=== PATIENT | male | born 1960 | race Caucasian/White ===

== ENCOUNTER 2017-10-21 11:32 | Inpatient (IN) ==
[2017-10-21 16:49] LABS: ABG Base Excess -4 mEq/L (-2 to 3); ABG HCO3 22 mEq/L (21-27); ABG Oxygen Saturation 100 % (95-98); ABG PCO2 43 mmHg (35-45); ABG PH 7.32 pH Units (7.32-7.45); ABG PO2 313 mmHg (85-104); ABG TCO2 23 mEq/L (20-26); Blood Gas Modality ASSIST CONTROL; Blood Gas PEEP 5 cm H2O; Blood Gas Respiration Rate 12; Blood Gas VT 500 cc
[2017-10-21] MEDS ORDERED: Lacri-Lube 3.5 GM TUBE BOTH EYES PRN (17:03)
[2017-10-21] MEDS ORDERED: Naloxone 0.4 MG/ML INJ IVP PRN (17:03)
--- NOTE | 2017-10-21 17:09 | Pulmonology History & Physical ---
<Joseph Kraft W - Last Filed: 10/21/17 17:24> Date of Encounter: 10/21/17 History of Present Illness HPI: Mr. Hawkins is a 56 year old male Medications and Allergies OxyCODONE/APAP 10/325 [Percocet 10/325 MG] 1 each PO Q6HR #120 tablet 02/17/17 [ Rx] Citalopram [CeleXA] 20 mg PO DAILY 10/21/17 [History] Multivit-Min/FA/Lycopen/Lutein [Men 50 Plus Multivitamin Tab] 1 each PO DAILY [History] 3 Allergy/AdvReac Type Severity Reaction Status Date / Time No Known Allergies Allergy Verified 12/28/16 16:03 All Systems: The remainder of the systems were reviewed and are negative Physical Examination Vital Signs: Vital Signs, Last 4 Hours Temp Pulse Resp BP Pulse Ox 10/21/17 17:00 98.6 F 95 32 142/97 100 10/21/17 16:59 95 10/21/17 16:58 28 99 10/21/17 16:55 28 100 Results - Laboratory Findings ABG ABG pH 7.32 pH Units (7.32-7.45) 10/21/17 16:44 ABG pCO2 43 mmHg (35-45) 10/21/17 16:44 ABG pO2 313 mmHg (85-104) H 10/21/17 16:44 ABG O2 Saturation 100 % (95-98) H 10/21/17 16:44 Abnormal lab findings: Abnormal lab results ABG pO2 313 mmHg (85-104) H 10/21/17 16:44 ABG O2 Saturation 100 % (95-98) H 10/21/17 16:44 ABG Base Excess -4 mEq/L (-2 to 3) L 10/21/17 16:44 POC Glucose 273 mg/dL (70-99) H 10/21/17 16:42 - Attending Attestation I examined this patient and my medical decision-making was reviewed with the Resident Physician. I agree with the documented findings, disposition and treatment plan as described except to the extent set forth below. We independently had [id number] contact with the patient I spent 35min of Critical Care time with this patient. It involved decision making of high complexity to assess, manipulate, and support vital organ system failure and/or to prevent further life threatening deterioration of the patient' s condition. The time involved in the performance of separately reportable procedures was not counted toward critical care time. Patient seen and examined at bedside Labs, radiology, chart personally reviewed. GLOBAL CLIMATE CHANGE ANALYST: The patient is showing evidence of anoxic brain injury with myoclonic jerking thus far has not been responsive to benzodiazepine. He has a history of metastatic lung cancer to the brain but this is been treated in the past with no evidence of recurrence at this point. CT head was performed at the outside hospital without acute abnormality and a repeat CT now to see for any evidence of worsening anoxic injury/cerebral edema. Overall neurological prognosis very poor. Continue targeted hypothermia protocol. Patient has no purposeful movement to this point his pupils remained fixed without gag reflex although he is able to trigger the vent. Will likely need neurologic consult tomorrow based upon clinical course Pulm: Acute respiratory failure on stable now was acceptable gas exchange. CTA to rule out pulmonary embolus as cause of cardiac arrest history of lung resection for primary lung malignancy in the distant past. Cards: Status post cardiac arrest was requiring vasopressor however that has been weaned off and blood pressure has stabilized. Echocardiogram pending troponin slightly elevated likely related to prolonged CPR. We will continue to trend this however along with serum lactate FEN-GI: Nothing by mouth for now GI prophylaxis given Renal: And output monitored along with serum creatinine and electrolytes ID: Concern for possible pneumonia being treated broadly for this cultures pending planned to de-escalate respiratory infectious panel pending Heme/Onc: DVT prophylaxis given. Endo: Glucose Monitored Integ/MSK: Skin Care per routine ICU Nursing Protocol to prevent ulcers. Lines: All lines examined without evidence of infection : Dispo: Remain in ICU critical illness CODE: Full code. I had a conversation with the patient's family members including his next of kin () and his son. I explained that overall prognosis is very grim from a neurological standpoint and I suspect he will end up with persistent vegetative state. We discussed the possibility of additional cardiac arrest and the very limited utility of repeat CPR in this patient's case with providing a meaningful recovery. At this point the family is in agreement they wanted to pursue aggressive measures explaining that there loaded 1 as a "fighter" we will continue aggressive measures at this time and continue daily updates with the family regarding clinical course.The patient is unable or incompetent to participate in giving a history and/or making treatment decisions. The discussion was necessary for determining treatment decision. This discussion took place in the ICU. The total meeting time was 15 minutes <Alison Pham - Last Filed: 10/21/17 21:06> Date of Encounter: 10/21/17 Time of Encounter: 17:09 Assessment and Plan (1) Acute respiratory failure requiring reintubation Current visit: Yes Status: Acute Acute respiratory failure requiring intubation s/p cardiac arrest. Unsure of etiology of cardiac arrest. WBC 12.3, lactic acid greater than 10, currently no source of infection as urine analysis was negative, chest x-ray showed no opacities. EKG showed low voltage but normal sinus. Plan: - Continue ventilatory support - DuoNeb's every 4 hours, albuterol every 2 when necessary - Sedated on Precedex, fentanyl, Versed - Empirically started on vancomycin and Zosyn for possible underlying infection - Diet: Nothing by mouth - Troponin every 6 hours - Lactic acid every 6 hours (2) Elevated lactic acid level Current visit: Yes Status: Acute Most likely secondary to hypoxia but could be due to infection. Patient was fluid resuscitated in the ED 3 L. Less likely though secondary to significant leukocytosis. We will continue to trend. (3) Cardiac arrest Current visit: No Status: Acute CPR before EMS arrived at the scene was done for at least 10 minutes but possibly up to 45 minutes. Patiently currently on hypothermic protocol. Patient is intubated. See plan above. (4) Elevated troponin Current visit: No Status: Acute Troponin was elevated 0.01. Repeat pending. Continue to trend. High risk for hemorrhage. (5) Non-small cell lung cancer Current visit: No Status: Acute Left lower lobe pneumonectomy, metastasis to his brain with removal. Last oncology note recorded on 03/03. Qualifiers: Laterality: left Qualified Code(s): C34.92 - Malignant neoplasm of unspecified part of left bronchus or lung (6) DVT prophylaxis Current visit: Yes Status: Acute Heparin SQ History of Present Illness Chief complaint: Cardiac Arrest HPI: Mr. Hawkins is a 56 year old male with past medical history of left lower lobe pneumonectomy secondary to lung cancer and metastatic cancer to the brain which was removed presented to [facility] ED and cardiac arrest. The past 3 days patient has not felt like himself and has had an altered mental status but refused to come into the hospital. This morning, patient was with his family and was last seen a couple minutes before he was found face down and not breathing. Patient' s son's who is a nurse p.m. CPR CPR was stated to be 45 minutes down time before EMS arrived but other family members stated that it might be 20 minutes or 10 minutes. Patient was given 3 rounds of appendectomy, bicarbonate once, Narcan, and intubated. Patient's family state that he does use opioids and abuses them at home but Narcan had little effect. Patient arrived at [facility] ED, and was found have a lactic acid greater than 10, troponin 0.10, BNP 205. CT was negative for acute intercranial hemorrhage. EKG showed sinus rhythm and a QTC 456. 3 L of saline was given. He required levophed as patient became hypotensive but was weaned off before EMS transferred to [place] [facility]. Patient was also found to be hypothermic therefore hypothermic protocol was not started. EMS stated that in around to [place] [facility] vitals were stable. On arrival to the ICU, patient's temperature was within normal limits and hypothermic protocol was initiated. Patient had a repeat head CT which showed. CTA of the chest showed no evidence of pulmonary embolism but did show multifocal right pulmonary infiltrates most prevalent in the right lower lobe, consistent with left pneumonectomy. Labs are pending. Past Med Surg Social Fam HX - Past Medical History Medical history: cancer (non-small cell lung cancer with mets to the brain that was removed), COPD, other Psychiatric history: anxiety, depression - Past Surgical History Surgical History: other (Left pneumonectomy) - Social History Smoking Status: Current every day smoker Smokeless Tobacco Status: No Alcohol use: none Drug use: none ROS unobtainable: due to endotracheal tube All Systems: The remainder of the systems were reviewed and are negative Physical Examination Vital Signs: Vital Signs, Last 4 Hours Pulse Resp Pulse Ox 10/21/17 16:59 95 10/21/17 16:58 28 99 10/21/17 16:55 28 100 Constitutional: intubated, resting with tremor Head: Normocephalic, atraumatic Heart: Normal, regular rate and rhythm, no murmurs Lungs: lung sounds heard bilaterally, decrease sounds on left lower lobe, clear to auscultation, patient mechanically intubated Abdomen: Soft, mild distended, Extremities: No edema, No clubbing Skin: Skin cool and dry, no lesions, no rashes, no jaundice Neurologic: not responding to commands, pupils 3mm delayed reaction lines: PIV, Results - Laboratory Findings ABG ABG pH 7.32 pH Units (7.32-7.45) 04 16:44 ABG pCO2 43 mmHg (35-45) 04 16:44 ABG pO2 313 mmHg (85-104) H 10/21/17 16:44 ABG O2 Saturation 100 % (95-98) H 04 16:44 Abnormal lab findings: Abnormal lab results ABG pO2 313 mmHg (85-104) H 10/21/17 16:44 ABG O2 Saturation 100 % (95-98) H 10/21/17 16:44 ABG Base Excess -4 mEq/L (-2 to 3) L 10/21/17 16:44 POC Glucose 273 mg/dL (70-99) H 10/21/17 16:42
[2017-10-21] MEDS: *HR* Heparin 5,000 UNIT/ML VIAL SQ SCH ×2 (17:47→22:07)
[2017-10-21] MEDS: Famotidine 20 MG/2 ML VIAL IVP SCH (17:47)
[2017-10-21] MEDS ORDERED: Potassium Phosphate 44 MEQ in 0.9 % Sodium Chloride 250 ML IVPB PRN (18:14)
[2017-10-21] MEDS: Dexmedetomidine HCl 400 MCG/100 ML MLS IVC SCH (18:39)
[2017-10-21 21:02] LABS: Hematocrit 46.7 % (37.5-50.1); Hemoglobin 15.7 g/dL (12.9-16.9); Mean Corpuscular HGB Conc 33.6 g/dL (31.6-35.5); Mean Corpuscular Hemoglobin 32.4 pg (28.0-33.3); Mean Corpuscular Volume 96.3 fL (83.0-100.0); Mean Platelet Volume 9.1 fL (9.4-12.4); Platelet Count 184 K/mcL (140-400); Red Blood Count 4.85 M/mcL (4.19-5.50); Red Cell Distribution Width 13.1 % (11.5-14.5)
[2017-10-21 21:09] LABS: Prothrombin Time 21.3 Seconds (9.4-12.1)
[2017-10-21] MEDS: Chlorhexidine Rinse 15 ML MOUTHWASH MM SCH (21:15)
[2017-10-21] MEDS: Lacri-Lube 3.5 GM TUBE BOTH EYES SCH (21:15)
[2017-10-21 21:22] LABS: BUN/Creatinine Ratio 23 (6-26); Blood Urea Nitrogen 31 mg/dL (6-20); Calcium 7.9 mg/dL (8.6-10.3); Carbon Dioxide 23 mEq/L (23-29); Chloride 103 mEq/L (98-107); Glucose 182 mg/dL (70-105); Magnesium 1.9 mg/dL (1.6-2.6); Osmolality,Calculated 301 (280-300); Phosphorous 2.7 mg/dL (2.7-4.5); Potassium 3.5 mEq/L (3.5-5.1); Sodium 140 mEq/L (136-145); eGFR For African Americans > 60 (> 60); eGFR For Non-African Americans 54 (> 60)
[2017-10-21] MEDS ORDERED: Ringers Solution, Lactated 500 ML IVC ONE (21:35)
[2017-10-21 22:03] LABS: Lymphocytes # 1.9 K/mcL (0.6-4.6); Monocytes # 1.5 K/mcL (0.0-1.3); Neutrophils # 12.6 K/mcL (1.6-8.9)
[2017-10-21] MEDS: Ipratropium/Albuterol Neb 3 ML IH SCH (22:17)
[2017-10-21] MEDS: Ringers Solution, Lactated 1,000 ML IVC SCH (22:24)
--- NOTE | 2017-10-21 22:57 | Procedure Note ---
<Marcel Neely - Last Filed: 10/21/17 23:03> Date of procedure: 10/21/17 Pre-op diagnosis: cardiac arrest Post-op diagnosis: same Procedure: Procedure Note: Central Venous Catheter Insertion Indication: Status post cardiac arrest, hypotension Attending Physician:Dr. Morris Call Center Supervisor: Dr. Neely Indication: This is a 56 year-old male status post cardiac arrest on hypothermic protocol. . Technique: A time out was preformed identifying the correct procedure, the correct location with the nursing staff. The right groin was prepped with 2% chlorhexidine and draped with a full length sterile sheet in the usual fashion. The femoral vein was accessed under ultrasound guidance with an 18 gauge thin wall needle. A triple lumen was inserted via the seldinger technique. Blood was withdrawn from all lumens and flushed with normal saline. The catheter was sutured in place and a sterile dressing was applied over the site prior to removal of drapes. The patient tolerated the procedure well and there were no complications. EBL: 5 mL Complication: None Anesthesia: IV sedation Surgeon: Marcel Neely Was there an ophthalmic assistant present: No Estimated blood loss (cc): 5 Specimen: none Pathology: none sent Condition: stable Disposition: ICU <Raman Morris - Last Filed: 10/22/17 05:31> Procedure: I am with the resident Dr. Neely at bed side during this procedure. He did place Rt Femoral triple lumen catheter with U/S guided. The whole procedure went well. Everything was done in sterile condition.
[2017-10-21] MEDS: Potassium Chloride 10 MEQ in 0.9 % Sodium Chloride 100 ML IVPB PRN (23:10)
[2017-10-22] MEDS: Piperacillin/Tazobactam 3.375 GM in 0.9 % Sodium Chloride Mini Bag 100 ML IVPB SCH ×3 (00:09→15:19)
[2017-10-22] MEDS: Lacri-Lube 3.5 GM TUBE BOTH EYES SCH ×6 (00:10→20:08)
[2017-10-22] MEDS: Potassium Chloride 10 MEQ in 0.9 % Sodium Chloride 100 ML IVPB PRN ×3 (00:10→02:10)
[2017-10-22] MEDS: Ipratropium/Albuterol Neb 3 ML IH SCH ×7 (00:17→23:49)
[2017-10-22 02:23] LABS: Albumin 3.1 g/dL (3.5-5.7); Albumin/Globulin Ratio 1.1 (1.1-2.2); Bilirubin,Direct 0.4 mg/dL (0.0-0.2); Bilirubin,Indirect 0.3 mg/dL (0.0-1.2); Bilirubin,Total 0.7 mg/dL (0.3-1.0); Chol/HDL Ratio 1.7 (0-4.9); Globulin 2.8 g/dL (2.4-3.5); Total Protein 5.9 g/dL (6.4-8.9)
[2017-10-22 02:35] LABS: Hemoglobin 14.7 g/dL (12.9-16.9); Mean Corpuscular HGB Conc 33.4 g/dL (31.6-35.5); Mean Corpuscular Hemoglobin 31.8 pg (28.0-33.3); Mean Corpuscular Volume 95.2 fL (83.0-100.0); Mean Platelet Volume 9.2 fL (9.4-12.4); Platelet Count 146 K/mcL (140-400); Red Blood Count 4.62 M/mcL (4.19-5.50); Red Cell Distribution Width 13.2 % (11.5-14.5)
[2017-10-22 03:00] LABS: BUN/Creatinine Ratio 28 (6-26); Blood Urea Nitrogen 34 mg/dL (6-20); Carbon Dioxide 19 mEq/L (23-29); Chloride 107 mEq/L (98-107); Potassium 4.8 mEq/L (3.5-5.1); Sodium 139 mEq/L (136-145); eGFR For African Americans > 60 (> 60)
[2017-10-22 03:01] LABS: Calcium 7.8 mg/dL (8.6-10.3); Glucose 128 mg/dL (70-105); Magnesium 2.5 mg/dL (1.6-2.6); Osmolality,Calculated 297 (280-300); Phosphorous 6.4 mg/dL (2.7-4.5); Troponin I 0.57 ng/mL (< 0.04); eGFR For Non-African Americans > 60 (> 60)
[2017-10-22 03:08] LABS: Adenovirus Not Detected (Not Detect); Bordetella Pertussis Not Detected (Not Detect); Chlamydophila pneumoniae Not Detected (Not Detect); Coronavirus 229E Not Detected (Not Detect); Coronavirus HKU1 Not Detected (Not Detect); Coronavirus NL63 Not Detected (Not Detect); Coronavirus OC43 Not Detected (Not Detect); Human Metapneumovirus ***DETECTED*** (Not Detect); Human Rhinovirus/Enterovirus Not Detected (Not Detect); Influenza A Subtype 2009 H1 Not Detected (Not Detect); Influenza A Untypeable Not Detected (Not Detect); Influenza B Not Detected (Not Detect); Mycoplasma pneumoniae Not Detected (Not Detect); Parainfluenza Virus 1 Not Detected (Not Detect); Parainfluenza Virus 2 Not Detected (Not Detect); Parainfluenza Virus 3 Not Detected (Not Detect); Parainfluenza Virus 4 Not Detected (Not Detect); Respiratory Syncytial Virus Not Detected (Not Detect)
[2017-10-22 03:32] LABS: Platelet Estimate Normal (Normal)
[2017-10-22 03:38] LABS: Lymphocytes # 0.4 K/mcL (0.6-4.6); Monocytes # 0.8 K/mcL (0.0-1.3); Neutrophils # 18.4 K/mcL (1.6-8.9)
[2017-10-22] MEDS: Ringers Solution, Lactated 1,000 ML IVC SCH ×2 (03:57→14:02)
[2017-10-22 05:18] LABS: ABG Base Excess -8 mEq/L (-2 to 3); ABG HCO3 20 mEq/L (21-27); ABG Oxygen Saturation 91 % (95-98); ABG PCO2 50 mmHg (35-45); ABG PH 7.22 pH Units (7.32-7.45); ABG PO2 74 mmHg (85-104); ABG TCO2 22 mEq/L (20-26); Blood Gas Modality ASSIST CONTROL; Blood Gas PEEP 5 cm H2O; Blood Gas Respiration Rate 12; Blood Gas VT 500 cc
[2017-10-22] MEDS: Famotidine 20 MG/2 ML VIAL IVP SCH ×2 (05:45→17:05)
[2017-10-22] MEDS: *HR* Heparin 5,000 UNIT/ML VIAL SQ SCH ×3 (05:45→22:10)
[2017-10-22] MEDS: Chlorhexidine Rinse 15 ML MOUTHWASH MM SCH ×2 (08:08→20:08)
[2017-10-22 08:15] LABS: VBG Ionized Calcium 1.01 mmol/L (1.15-1.35)
--- NOTE | 2017-10-22 08:23 | Pulmonology Progress Note ---
Addendum entered and electronically signed by Alison Pham DO 10/22/17 10:29 : A/P: additional diagnosis 1. Anoxic brain injury - Prolonged down time with CPR. CT of head showed cerebral and basal ganglia edema. Patient was found to be hypothermic at the ED in [place] so hypothermic protocol not started, upon arrival to [place] patient was found to have a normal temperature. Hypothermic protocol initiated. Will begin rewarming around 8PM tonight. Neurology consulted, appreciate recommendations. 2. addition to elevated troponin - Echo pending. Original Note: <Alison Pham - Last Filed: 10/22/17 10:09> Date of Encounter: 10/22/17 Time of Encounter: 08:00 Assessment and Plan (1) Acute respiratory failure requiring reintubation Current Visit: Yes Status: Acute Acute respiratory failure requiring intubation s/p cardiac arrest found to have human metapneumovir virus probably causing COPD exacerbation. Unsure of etiology of cardiac arrest. WBC 12.3, lactic acid greater than 10, currently no source of infection as urine analysis was negative, chest x-ray showed no opacities. EKG showed low voltage but normal sinus. + Human metapneumovir virus Plan: - Continue ventilatory support - DuoNeb's every 4 hours, albuterol every 2 when necessary - Sedated on Precedex - Empirically started on vancomycin and Zosyn for possible underlying infection - Diet: Nothing by mouth - Troponin every 6 hours, trending down - Lactic acid every 6 hours, trending down - contact precautions for human metapneumovir virus (2) Elevated lactic acid level Current Visit: Yes Status: Acute Most likely secondary to hypoxia vs. infection. Patient was fluid resuscitated in the ED 3 L. No significant leukocytosis. Positive for human metapneumovir Plan: -continue to trend, currently trending down -LR at 100 mL per hour (3) Cardiac arrest Current Visit: No Status: Inactive CPR before EMS arrived at the scene was done for at least 10 minutes but possibly up to 45 minutes. Patiently currently on hypothermic protocol. Patient is intubated. See plan above. (4) Elevated troponin Current Visit: No Status: Inactive Troponin was elevated with a max of 1.02 status post cardiac arrest and CPR. currently trending down. Continue to trend. High risk for hemorrhage if heparin given. (5) Non-small cell lung cancer Current Visit: No Status: Acute Left lower lobe pneumonectomy, metastasis to his brain with removal. Last oncology note recorded on 03/03. Qualifiers: Laterality: left Qualified Code(s): C34.92 - Malignant neoplasm of unspecified part of left bronchus or lung (6) DVT prophylaxis Current Visit: Yes Status: Acute Heparin SQ Subjective Principal diagnosis: cardiac arrest Interval history: Mr. 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 Overnight, central line was placed as patient was having low normotensive blood pressures. This morning patient is intubated and is sedated on Precedex. He is not responding to commands and is still under hypothermic protocol. Review of systems unable to be completed due to intubation. Objective PUL Vital signs: Last Vital Signs Temp 91.7 F L 10/22/17 08:17 Pulse 80 10/22/17 08:17 Resp 21 10/22/17 08:17 BP 125/86 10/22/17 08:17 Pulse Ox 95 10/22/17 08:17 Constitutional: intubated, resting calmly, hypothermic blankets Head: Normocephalic, atraumatic Heart: Normal, regular rate and rhythm, no murmurs Lungs: decrease sounds on left lower lobe, rhonchi, patient mechanically intubated Abdomen: Soft, mild distended, Extremities: No edema, No clubbing Skin: Skin cool and dry, no lesions, no rashes, no jaundice Neurologic: not responding to commands lines: PIV, femoral central line Ventilator Settings Ventilator Settings: Ventilator Settings, Last 8 Hours Ventilator Mode A/C Ventilator Mode A/C Ventilator Mode A/C Ventilator Mode A/C Ventilator Mode A/C Ventilator Mode A/C Ventilator Mode A/C Ventilator Mode A/C Ventilator Mode A/C Ventilator Mode A/C Ventilator Mode A/C Ventilator Tidal Volume 500 Setting Ventilator Tidal Volume 500 Setting Ventilator Tidal Volume 500 Setting Ventilator Tidal Volume 500 Setting Ventilator Tidal Volume 500 Setting Ventilator Tidal Volume 500 Setting Ventilator Tidal Volume 500 Setting Ventilator Tidal Volume 500 Setting Ventilator Tidal Volume 500 Setting Ventilator Tidal Volume 500 Setting Ventilator Tidal Volume 500 Setting Ventilator Respiratory Rate 12 Setting Ventilator Respiratory Rate 12 Setting Ventilator Respiratory Rate 12 Setting Ventilator Respiratory Rate 12 Setting Ventilator Respiratory Rate 12 Setting Ventilator Respiratory Rate 12 Setting Ventilator Respiratory Rate 12 Setting Ventilator Respiratory Rate 12 Setting Ventilator Respiratory Rate 12 Setting Ventilator Respiratory Rate 12 Setting Ventilator Respiratory Rate 12 Setting Actual Respiratory Rate 18 Actual Respiratory Rate 21 Actual Respiratory Rate 20 Actual Respiratory Rate 24 Actual Respiratory Rate 23 Actual Respiratory Rate 23 Actual Respiratory Rate 22 Actual Respiratory Rate 21 Actual Respiratory Rate 20 Actual Respiratory Rate 23 Positive End Expiratory 5 Pressure Positive End Expiratory 5 Pressure Positive End Expiratory 5 Pressure Positive End Expiratory 5 Pressure Positive End Expiratory 5 Pressure Positive End Expiratory 5 Pressure Positive End Expiratory 5 Pressure Positive End Expiratory 5 Pressure Positive End Expiratory 5 Pressure Positive End Expiratory 5 Pressure Positive End Expiratory 5 Pressure Peak Inspiratory Airway 36 Pressure Peak Inspiratory Airway 19 Pressure Peak Inspiratory Airway 35 Pressure Peak Inspiratory Airway 34 Pressure Peak Inspiratory Airway 23 Pressure Peak Inspiratory Airway 23 Pressure Peak Inspiratory Airway 21 Pressure Peak Inspiratory Airway 23 Pressure Peak Inspiratory Airway 22 Pressure Peak Inspiratory Airway 35 Pressure Results - Laboratory Findings CBC and BMP: 10/22/17 02:20 10/22/17 08:00 ABG ABG pH 7.22 pH Units (7.32-7.45) L 10/22/17 05:15 ABG pCO2 50 mmHg (35-45) H 10/22/17 05:15 ABG pO2 74 mmHg (85-104) L 10/22/17 05:15 ABG O2 Saturation 91 % (95-98) L 10/22/17 05:15 PT/INR, D-dimer PT 21.3 Seconds (9.4-12.1) H 10/21/17 20:40 Abnormal lab findings: Abnormal lab results WBC 19.6 K/mcL (4.3-11.1) H 10/22/17 02:20 MPV 9.2 fL (9.4-12.4) L 10/22/17 02:20 Band Neutrophils % 14.0 % (0-4) H 10/22/17 02:20 Metamyelocytes % 1.0 % (0) H 10/21/17 20:40 Neutrophils # 18.4 K/mcL (1.6-8.9) H 10/22/17 02:20 Lymphocytes # 0.4 K/mcL (0.6-4.6) L 10/22/17 02:20 PT 21.3 Seconds (9.4-12.1) H 10/21/17 20:40 ABG pH 7.22 pH Units (7.32-7.45) L 10/22/17 05:15 ABG pCO2 50 mmHg (35-45) H 10/22/17 05:15 ABG pO2 74 mmHg (85-104) L 10/22/17 05:15 ABG HCO3 20 mEq/L (21-27) L 10/22/17 05:15 ABG O2 Saturation 91 % (95-98) L 10/22/17 05:15 ABG Base Excess -8 mEq/L (-2 to 3) L 10/22/17 05:15 Carbon Dioxide 19 mEq/L (23-29) L 10/22/17 02:20 BUN 34 mg/dL (6-20) H 10/22/17 02:20 BUN/Creatinine Ratio 28 (6-26) H 10/22/17 02:20 Glucose 128 mg/dL (70-105) H 10/22/17 02:20 POC Glucose 112 mg/dL (70-99) H 10/22/17 08:16 Lactic Acid 5.1 mmol/L (0.5-2.2) H* 10/22/17 02:20 Calcium 7.8 mg/dL (8.6-10.3) L 10/22/17 02:20 Venous Ioniz Calcium 1.01 mmol/L (1.15-1.35) L 10/22/17 08:12 Phosphorus 6.4 mg/dL (2.7-4.5) H 10/22/17 02:20 Direct Bilirubin 0.4 mg/dL (0.0-0.2) H 10/22/17 01:30 AST 458 Units/L (13-39) H 10/22/17 01:30 ALT 298 Units/L (7-52) H 10/22/17 01:30 Alkaline Phosphatase 117 Units/L (34-104) H 10/22/17 01:30 Troponin I 0.57 ng/mL (< 0.04) H* 10/22/17 02:20 Serum Total Protein 5.9 g/dL (6.4-8.9) L 10/22/17 01:30 Albumin 3.1 g/dL (3.5-5.7) L 10/22/17 01:30 HDL Cholesterol 39 mg/dL (40-59) L 10/22/17 01:30 Human Metapneumovir PCR DETECTED (Not Detect) A 10/22/17 01:20 - Microbiology Findings Microbiology Findings: Microbiology, Last 48 Hours 10/22/17 02:15 Sputum Culture - Preliminary Sputum - Clinical Findings Intake & Output: Intake & Output 10/21/17 10/22/17 10/22/17 23:59 07:59 15:59 Intake Total 250 / 250 2060 / 2060 Output Total 200 / 200 550 / 550 Balance 50 / 50 1510 / 1510 Weight 75.8 kg 76.6 kg Consult Discharge Plan - Plan Referrals: Iris Negrete MD [Primary Care Provider] - <Joseph Kraft W - Last Filed: 10/22/17 10:58> Date of Encounter: 10/22/17 Objective PUL Vital signs: Last Vital Signs Temp 94.8 F L 10/22/17 10:19 Pulse 77 10/22/17 10:19 Resp 22 10/22/17 10:19 BP 131/64 10/22/17 10:19 Pulse Ox 97 10/22/17 10:19 Ventilator Settings Ventilator Settings: Ventilator Settings, Last 8 Hours Ventilator Mode A/C Ventilator Mode A/C Ventilator Mode A/C Ventilator Mode A/C Ventilator Mode A/C Ventilator Mode A/C Ventilator Mode A/C Ventilator Mode A/C Ventilator Mode A/C Ventilator Mode A/C Ventilator Mode A/C Ventilator Mode A/C Ventilator Tidal Volume 500 Setting Ventilator Tidal Volume 500 Setting Ventilator Tidal Volume 500 Setting Ventilator Tidal Volume 500 Setting Ventilator Tidal Volume 500 Setting Ventilator Tidal Volume 500 Setting Ventilator Tidal Volume 500 Setting Ventilator Tidal Volume 500 Setting Ventilator Tidal Volume 500 Setting Ventilator Tidal Volume 500 Setting Ventilator Tidal Volume 500 Setting Ventilator Tidal Volume 500 Setting Ventilator Respiratory Rate 12 Setting Ventilator Respiratory Rate 12 Setting Ventilator Respiratory Rate 12 Setting Ventilator Respiratory Rate 12 Setting Ventilator Respiratory Rate 12 Setting Ventilator Respiratory Rate 12 Setting Ventilator Respiratory Rate 12 Setting Ventilator Respiratory Rate 12 Setting Ventilator Respiratory Rate 12 Setting Ventilator Respiratory Rate 12 Setting Ventilator Respiratory Rate 12 Setting Ventilator Respiratory Rate 12 Setting Actual Respiratory Rate 23 Actual Respiratory Rate 21 Actual Respiratory Rate 21 Actual Respiratory Rate 18 Actual Respiratory Rate 21 Actual Respiratory Rate 20 Actual Respiratory Rate 24 Actual Respiratory Rate 23 Actual Respiratory Rate 23 Actual Respiratory Rate 22 Actual Respiratory Rate 21 Positive End Expiratory 5 Pressure Positive End Expiratory 5 Pressure Positive End Expiratory 5 Pressure Positive End Expiratory 5 Pressure Positive End Expiratory 5 Pressure Positive End Expiratory 5 Pressure Positive End Expiratory 5 Pressure Positive End Expiratory 5 Pressure Positive End Expiratory 5 Pressure Positive End Expiratory 5 Pressure Positive End Expiratory 5 Pressure Positive End Expiratory 5 Pressure Peak Inspiratory Airway 24 Pressure Peak Inspiratory Airway 24 Pressure Peak Inspiratory Airway 31 Pressure Peak Inspiratory Airway 36 Pressure Peak Inspiratory Airway 19 Pressure Peak Inspiratory Airway 35 Pressure Peak Inspiratory Airway 34 Pressure Peak Inspiratory Airway 23 Pressure Peak Inspiratory Airway 23 Pressure Peak Inspiratory Airway 21 Pressure Peak Inspiratory Airway 23 Pressure Results - Laboratory Findings CBC and BMP: 10/22/17 02:20 10/22/17 08:00 ABG ABG pH 7.22 pH Units (7.32-7.45) L 10/22/17 05:15 ABG pCO2 50 mmHg (35-45) H 10/22/17 05:15 ABG pO2 74 mmHg (85-104) L 10/22/17 05:15 ABG O2 Saturation 91 % (95-98) L 10/22/17 05:15 PT/INR, D-dimer PT 21.3 Seconds (9.4-12.1) H 10/21/17 20:40 Abnormal lab findings: Abnormal lab results WBC 19.6 K/mcL (4.3-11.1) H 10/22/17 02:20 MPV 9.2 fL (9.4-12.4) L 10/22/17 02:20 Band Neutrophils % 14.0 % (0-4) H 10/22/17 02:20 Metamyelocytes % 1.0 % (0) H 10/21/17 20:40 Neutrophils # 18.4 K/mcL (1.6-8.9) H 10/22/17 02:20 Lymphocytes # 0.4 K/mcL (0.6-4.6) L 10/22/17 02:20 PT 21.3 Seconds (9.4-12.1) H 10/21/17 20:40 ABG pH 7.22 pH Units (7.32-7.45) L 10/22/17 05:15 ABG pCO2 50 mmHg (35-45) H 10/22/17 05:15 ABG pO2 74 mmHg (85-104) L 10/22/17 05:15 ABG HCO3 20 mEq/L (21-27) L 10/22/17 05:15 ABG O2 Saturation 91 % (95-98) L 10/22/17 05:15 ABG Base Excess -8 mEq/L (-2 to 3) L 10/22/17 05:15 Chloride 109 mEq/L (98-107) H 10/22/17 08:00 Carbon Dioxide 21 mEq/L (23-29) L 10/22/17 08:00 BUN 32 mg/dL (6-20) H 10/22/17 08:00 BUN/Creatinine Ratio 30 (6-26) H 10/22/17 08:00 Glucose 121 mg/dL (70-105) H 10/22/17 08:00 POC Glucose 112 mg/dL (70-99) H 10/22/17 08:16 Lactic Acid 3.8 mmol/L (0.5-2.2) H 10/22/17 08:00 Calcium 7.7 mg/dL (8.6-10.3) L 10/22/17 08:00 Venous Ioniz Calcium 1.01 mmol/L (1.15-1.35) L 10/22/17 08:12 Phosphorus 4.7 mg/dL (2.7-4.5) H 10/22/17 08:00 Direct Bilirubin 0.4 mg/dL (0.0-0.2) H 10/22/17 01:30 AST 458 Units/L (13-39) H 10/22/17 01:30 ALT 298 Units/L (7-52) H 10/22/17 01:30 Alkaline Phosphatase 117 Units/L (34-104) H 10/22/17 01:30 Troponin I 0.38 ng/mL (< 0.04) H* 10/22/17 08:36 Serum Total Protein 5.9 g/dL (6.4-8.9) L 10/22/17 01:30 Albumin 3.1 g/dL (3.5-5.7) L 10/22/17 01:30 HDL Cholesterol 39 mg/dL (40-59) L 10/22/17 01:30 Human Metapneumovir PCR DETECTED (Not Detect) A 10/22/17 01:20 - Microbiology Findings Microbiology Findings: Microbiology, Last 48 Hours 10/22/17 02:15 Sputum Culture - Preliminary Sputum - Clinical Findings Intake & Output: Intake & Output 10/21/17 10/22/17 10/22/17 23:59 07:59 15:59 Intake Total 250 / 250 2060 / 2060 40 / 40 Output Total 200 / 200 550 / 550 Balance 50 / 50 1510 / 1510 40 / 40 Weight 75.8 kg 76.6 kg - Attending Attestation I examined this patient and my medical decision-making was reviewed with the Resident Physician. I agree with the documented findings, disposition and treatment plan as described except to the extent set forth below. We independently had [id number] contact with the patient Patient seen and examined at bedside Labs, radiology, chart personally reviewed. Management was reviewed during multidisciplinary critical care rounds. TRACK RIDER: Severe anoxic brain injury but without clear evidence of brain post cardiac arrest. CT scan notable for cerebral edema. Patient does not have a gag reflex nor corneal reflex at this time. He does not withdraw to pain. He has decerebrate posturing. Stereotyped myoclonic jerking around the face his consistent with anoxia. Neurology consult pending continue targeted temperature protocol Pulm: Acute hypoxic respiratory failure requiring intubation on the ventilator today with acceptable gas exchange patient is able to trigger the event Cards: Status post cardiac arrest of unclear etiology but I suspect respiratory infection leading to COPD exacerbation complicated by abuse of narcotics leading to respiratory failure. He has had prolonged CPR performed and has evidence of anoxic injury. Was borderline hypotensive overnight which is central venous catheter was placed but has not required vasopressor for any prolonged period of time. Lactate trending down and troponin has peaked echocardiogram pending I do not think this represents ACS but more likely that demand of hypoxemia/CPR FEN-GI: Nothing by mouth for now GI prophylaxis given Renal: SHAYY has resolved continue to monitor urine output ID: Human minute Pneumovirus infection positive also concern for aspiration and he is on broad-spectrum antimicrobials with this with planned to de-escalate cultures pending Heme/Onc: DVT prophylaxis given Endo: Glucose Monitored Integ/MSK: Skin Care per routine ICU Nursing Protocol to prevent ulcers. Lines: All lines examined without evidence of infection : Dispo: Remain ICU for critical illness CODE: Full code
[2017-10-22 08:31] LABS: BUN/Creatinine Ratio 30 (6-26); Blood Urea Nitrogen 32 mg/dL (6-20); Calcium 7.7 mg/dL (8.6-10.3); Carbon Dioxide 21 mEq/L (23-29); Chloride 109 mEq/L (98-107); Glucose 121 mg/dL (70-105); Osmolality,Calculated 298 (280-300); Phosphorous 4.7 mg/dL (2.7-4.5); Potassium 4.2 mEq/L (3.5-5.1); Sodium 140 mEq/L (136-145); eGFR For African Americans > 60 (> 60); eGFR For Non-African Americans > 60 (> 60)
[2017-10-22] MEDS: MethylPREDNISolone 40 MG/ML VIAL IVP SCH ×2 (08:49→15:19)
[2017-10-22] MEDS: Dexmedetomidine HCl 400 MCG/100 ML MLS IVC SCH ×2 (09:50→17:05)
[2017-10-22 20:53] LABS: VBG Ionized Calcium 1.03 mmol/L (1.15-1.35)
--- NOTE | 2017-10-22 21:48 | Neurology - Consult Note ---
Date of Encounter: 10/22/17 Time of Encounter: 11:00 Assessment and Plan (1) Anoxic brain injury Current Visit: Yes Status: Acute Patient is a 56 year old man with non-small cell lung cancer s/p pneumolobectomy , s/p craniotomty resection of lung cancer mestatasis to lung who was found face down unresponsive and not breathing with unknown duration. CT of head showed acute intracranial abnormality consistent with diffuse cerebral insult likely anoxic-ischemic in etiology or widespread posterior cerebral artery occlusion or it can also be seen in cerebral venous thrombosis. It is noted that there are bilateral basal ganglia and loss of rey-white differentiation at the posterior parietal and occipital lobe bilaterally. Translating into neurological deficits would be significant mental status changes and motor deficits such as those seen in akinetic mutism, or worse case , permanent vegetative states. Neurological prognosis appears very poor. Brain stem function appears preserved and the patient currently on hypothermal protocol and sedation therefore cognitive function can not be accurately assessed. Will re-evaluate tomorrow. Please continue medical and supportive care. History of Present Illness Chief complaint: anoxic brain injury HPI: Mr. Hawkins is a 56 year old male with PMH significant for non-small cell lung cancer, s/p partial lobectomy, history of lung cancer metastasized to brain, s/ p craniotomy with mass resection, who was found face down yesterday morning, unresponsive. It was unknown how long he was unresponsive and not breathing per medical records probably anywhere around 20-45 minutes. It was reported that he was not feeling very well since the last 3 days prior to admission. He was mechanically intubated and started hypothermal protocol. He was sedated with versed earlier and now he is only on prexedex neurology was consulted for evaluation of probable anoxic brain injury. No seizure activity was reported. he was transferred from [facility] and initial CT of head was reported no acute intracranial abnormality. However, a repeat CT of head here at [facility] 6 hours later showed evidence concerning for diffuse ischemic encephalopathy. Please refer to the reports for details. Images are reviewed personally and there are bilateral focal quite diffuse hypointensities at the bilateral basal ganglia and parietal-occipital region with loss of rey-white matter differentiation and effacement of CSF space suggesting cerebral edema. Currently the patient is sedated and intubated and on hypothermal protocol. Per medical staff, patient is able to trigger the vent. No myoclonic jerking noted. No spontaneous movements. Past Med Surg Social Fam HX - Past Medical History Medical history: cancer (non-small cell lung cancer with mets to the brain that was removed), COPD, other Psychiatric history: anxiety, depression - Past Surgical History Surgical History: other (Left pneumonectomy) - Social History Smoking Status: Current every day smoker Smokeless Tobacco Status: No Alcohol use: none Drug use: none Medications and Allergies Citalopram [CeleXA] 40 mg PO DAILY 10/21/17 [History] Multivit-Min/FA/Lycopen/Lutein [Men 50 Plus Multivitamin Tab] 1 tab PO DAILY 01/02 [History] Ipratropium/Albuterol Neb [Duoneb] 3 ml IH Q6HR 10/22/17 [History] OxyCODONE Immed Rel [Roxicodone 10 MG] 10 mg PO Q6H PRN 10/22/17 [History] 3 Allergy/AdvReac Type Severity Reaction Status Date / Time No Known Allergies Allergy Verified 12/28/16 16:03 All Systems: The remainder of the systems were reviewed and are negative Physical Examination - Vital Signs Vital Signs: Initial Vital Signs Resp Pulse Ox 28 100 10/21/17 16:55 10/21/17 16:55 - Constitutional General appearance: chronically ill, older than stated age - Neurologic Sensorimotor examination: other (Unable to assess due to ) Detailed motor examination: other (Patient is sedated and on hypothermal protocol. No spontaneous limb movmenet noted. Muscle tone was preserved both arms, so as DTRs. ) Detailed sensory examination: other (Unable to assess due to coma) Posture: other (None) Reflexes: Biceps: 1+, Triceps: 1+, Brachioradialis: 1+ Mental Status Examination: coma Cranial nerve examination: PERRL (Midline 2mm in sizes bilaterally, sluggish light response. no spontaneous blinking), EOMI (Oculocephalic reflex somewhat preserved), visual garcia intact (Unable to assess), corneal reflexes brisk symmetrically (No vigorous corneal reflexes bilaterally), no facial asymmetry is present, gag reflex intact (preserved) Results - Laboratory Findings CBC and BMP: 10/22/17 02:20 10/22/17 08:00 Abnormal lab findings: Abnormal lab results WBC 19.6 K/mcL (4.3-11.1) H 10/22/17 02:20 MPV 9.2 fL (9.4-12.4) L 10/22/17 02:20 Band Neutrophils % 14.0 % (0-4) H 10/22/17 02:20 Metamyelocytes % 1.0 % (0) H 10/21/17 20:40 Neutrophils # 18.4 K/mcL (1.6-8.9) H 10/22/17 02:20 Lymphocytes # 0.4 K/mcL (0.6-4.6) L 10/22/17 02:20 PT 21.3 Seconds (9.4-12.1) H 10/21/17 20:40 ABG pH 7.22 pH Units (7.32-7.45) L 10/22/17 05:15 ABG pCO2 50 mmHg (35-45) H 10/22/17 05:15 ABG pO2 74 mmHg (85-104) L 10/22/17 05:15 ABG HCO3 20 mEq/L (21-27) L 10/22/17 05:15 ABG O2 Saturation 91 % (95-98) L 10/22/17 05:15 ABG Base Excess -8 mEq/L (-2 to 3) L 10/22/17 05:15 Chloride 109 mEq/L (98-107) H 10/22/17 08:00 Carbon Dioxide 21 mEq/L (23-29) L 10/22/17 08:00 BUN 32 mg/dL (6-20) H 10/22/17 08:00 BUN/Creatinine Ratio 30 (6-26) H 10/22/17 08:00 Glucose 121 mg/dL (70-105) H 10/22/17 08:00 POC Glucose 125 mg/dL (70-99) H 10/22/17 17:15 Lactic Acid 2.8 mmol/L (0.5-2.2) H 10/22/17 20:15 Calcium 7.7 mg/dL (8.6-10.3) L 10/22/17 08:00 Venous Ioniz Calcium 1.03 mmol/L (1.15-1.35) L 10/22/17 20:50 Phosphorus 4.7 mg/dL (2.7-4.5) H 10/22/17 08:00 Direct Bilirubin 0.4 mg/dL (0.0-0.2) H 10/22/17 01:30 AST 458 Units/L (13-39) H 10/22/17 01:30 ALT 298 Units/L (7-52) H 10/22/17 01:30 Alkaline Phosphatase 117 Units/L (34-104) H 10/22/17 01:30 Troponin I 0.23 ng/mL (< 0.04) H* 10/22/17 20:00 Serum Total Protein 5.9 g/dL (6.4-8.9) L 10/22/17 01:30 Albumin 3.1 g/dL (3.5-5.7) L 10/22/17 01:30 HDL Cholesterol 39 mg/dL (40-59) L 10/22/17 01:30 Human Metapneumovir PCR DETECTED (Not Detect) A 10/22/17 01:20 Consult Discharge Plan - Plan Referrals: Iris Negrete MD [Primary Care Provider] -
[2017-10-23] MEDS: Piperacillin/Tazobactam 3.375 GM in 0.9 % Sodium Chloride Mini Bag 100 ML IVPB SCH ×4 (00:08→23:55)
[2017-10-23] MEDS: MethylPREDNISolone 40 MG/ML VIAL IVP SCH ×4 (00:08→23:54)
[2017-10-23] MEDS: Ringers Solution, Lactated 1,000 ML IVC SCH ×2 (00:13→11:37)
[2017-10-23] MEDS: Lacri-Lube 3.5 GM TUBE BOTH EYES SCH ×7 (00:26→23:55)
[2017-10-23] MEDS: Dexmedetomidine HCl 400 MCG/100 ML MLS IVC SCH ×3 (02:19→22:45)
[2017-10-23] MEDS: Ipratropium/Albuterol Neb 3 ML IH SCH ×6 (03:45→23:41)
[2017-10-23 04:26] LABS: Basophils % 0.1 %; Hematocrit 37.1 % (37.5-50.1); Immature Granulocytes % 0.4 % (0-4); Lymphocytes # 0.5 K/mcL (0.6-4.6); Mean Corpuscular HGB Conc 34.8 g/dL (31.6-35.5); Mean Corpuscular Hemoglobin 32.6 pg (28.0-33.3); Mean Corpuscular Volume 93.7 fL (83.0-100.0); Mean Platelet Volume 10.1 fL (9.4-12.4); Monocytes # 0.7 K/mcL (0.0-1.3); Monocytes % 4.4 %; Neutrophils # 14.3 K/mcL (1.6-8.9); Platelet Count 108 K/mcL (140-400); Red Blood Count 3.96 M/mcL (4.19-5.50); Red Cell Distribution Width 13.2 % (11.5-14.5); Segmented Neutrophils % 92.1 %
[2017-10-23 04:36] LABS: Hemoglobin 12.9 g/dL (12.9-16.9)
[2017-10-23 04:37] LABS: BUN/Creatinine Ratio 33 (6-26); Blood Urea Nitrogen 30 mg/dL (6-20); Carbon Dioxide 23 mEq/L (23-29); Chloride 115 mEq/L (98-107); Glucose 148 mg/dL (70-105); Osmolality,Calculated 309 (280-300); Sodium 145 mEq/L (136-145); eGFR For African Americans > 60 (> 60); eGFR For Non-African Americans > 60 (> 60)
[2017-10-23 05:19] LABS: Platelet Estimate Decreased (Normal)
[2017-10-23 05:37] LABS: ABG Base Excess -1 mEq/L (-2 to 3); ABG HCO3 25 mEq/L (21-27); ABG Oxygen Saturation 98 % (95-98); ABG PCO2 41 mmHg (35-45); ABG PH 7.39 pH Units (7.32-7.45); ABG PO2 114 mmHg (85-104); ABG TCO2 26 mEq/L (20-26); Blood Gas Modality ASSIST CONTROL; Blood Gas PEEP 5 cm H2O; Blood Gas Respiration Rate 12; Blood Gas VT 500 cc
[2017-10-23 05:45] LABS: Magnesium 1.9 mg/dL (1.6-2.6)
[2017-10-23] MEDS: *HR* Heparin 5,000 UNIT/ML VIAL SQ SCH ×3 (05:53→22:24)
[2017-10-23] MEDS: Famotidine 20 MG/2 ML VIAL IVP SCH ×2 (05:53→17:53)
--- NOTE | 2017-10-23 07:14 | Pulmonology Progress Note ---
Date of Encounter: 10/23/17 Time of Encounter: 07:13 Assessment and Plan (1) Acute respiratory failure with hypoxia Current Visit: Yes Status: Acute Patient seen and examined at bedside Labs, radiology, chart personally reviewed. Management was reviewed during multidisciplinary critical care rounds. DIRECTOR OF CARDIAC REHABILITATION: Anoxic brain injury status post cardiac arrest. He has completed targeted temperature protocol. Neurology following extremely poor prognosis neurologically suspect persistent vegetative state. Appreciate Neuro recs Pulm: Acute respiratory failure requiring intubation he is stable on the ventilator today no change in neurological function so can likely attempt spontaneous breathing trial tomorrow however if aggressive care is pursued by family he would need tracheostomy placement because of neurological injury. AECOPD on steroids and BDs Cards: Initially hypotensive status post cardiac arrest blood pressure stable now continue to monitor. ECHO shows Reduced EF% although no previous baseline. Cardiology consultation based upon neurological assessment/prognostication post cooling. FEN-GI: GI prophylaxis given. Consult Dietary for enteral nutrition recs. Will need PEG placement if continued aggressive care pursued. Renal: UOP monitored sCr monitored daily along with electrolytes ID: Treating for concern of aspiration. He is Human Metapneumovirus + cont droplet precuations Heme/Onc: DVT prophylaxis given Endo: Glucose Monitored Integ/MSK: Skin Care per routine ICU Nursing Protocol to prevent ulcers. Lines: All lines examined without evidence of infection : Dispo: Remain in ICU for vent mngt CODE: Full. (2) Pneumonia Current Visit: Yes Status: Acute Qualifiers: Qualified Code(s): J18.9 - Pneumonia, unspecified organism (3) Elevated lactic acid level Current Visit: Yes Status: Acute (4) Anoxic brain injury Current Visit: Yes Status: Acute Subjective Principal diagnosis: cardiac arrest Interval history: Status post targeted temperature protocol. Patient has been rewarmed. Remains hemodynamically stable. No change in neurological status. Objective PUL Vital signs: Last Vital Signs Temp 97.0 F L 10/23/17 07:00 Pulse 68 10/23/17 07:00 Resp 18 10/23/17 07:00 BP 127/74 10/23/17 07:00 Pulse Ox 100 10/23/17 07:00 General appearance: comatose Eyes: nonicteric Auscultation: bilateral: rhonchi Cardiovascular: regular rate and rhythm Gastrointestinal: hypoactive bowel sounds, soft other (She does not have gag reflex or cough reflex. There is no blink to threat. Pupils are sluggishly reactive. He is triggering the vent however. No response to painful stimuli) Ventilator Settings Ventilator Settings: Ventilator Settings, Last 8 Hours Ventilator Mode A/C Ventilator Mode A/C Ventilator Mode A/C Ventilator Mode A/C Ventilator Mode A/C Ventilator Mode A/C Ventilator Mode A/C Ventilator Mode A/C Ventilator Mode A/C Ventilator Mode A/C Ventilator Mode A/C Ventilator Tidal Volume 500 Setting Ventilator Tidal Volume 500 Setting Ventilator Tidal Volume 500 Setting Ventilator Tidal Volume 500 Setting Ventilator Tidal Volume 500 Setting Ventilator Tidal Volume 500 Setting Ventilator Tidal Volume 500 Setting Ventilator Tidal Volume 500 Setting Ventilator Tidal Volume 500 Setting Ventilator Tidal Volume 500 Setting Ventilator Tidal Volume 500 Setting Ventilator Respiratory Rate 12 Setting Ventilator Respiratory Rate 12 Setting Ventilator Respiratory Rate 12 Setting Ventilator Respiratory Rate 12 Setting Ventilator Respiratory Rate 12 Setting Ventilator Respiratory Rate 12 Setting Ventilator Respiratory Rate 12 Setting Ventilator Respiratory Rate 12 Setting Ventilator Respiratory Rate 12 Setting Ventilator Respiratory Rate 12 Setting Ventilator Respiratory Rate 12 Setting Actual Respiratory Rate 18 Actual Respiratory Rate 23 Actual Respiratory Rate 20 Actual Respiratory Rate 18 Actual Respiratory Rate 19 Actual Respiratory Rate 19 Actual Respiratory Rate 22 Actual Respiratory Rate 19 Actual Respiratory Rate 20 Actual Respiratory Rate 21 Actual Respiratory Rate 24 Positive End Expiratory 5 Pressure Positive End Expiratory 5 Pressure Positive End Expiratory 5 Pressure Positive End Expiratory 5 Pressure Positive End Expiratory 5 Pressure Positive End Expiratory 5 Pressure Positive End Expiratory 5 Pressure Positive End Expiratory 5 Pressure Positive End Expiratory 5 Pressure Positive End Expiratory 5 Pressure Positive End Expiratory 5 Pressure Peak Inspiratory Airway 37 Pressure Peak Inspiratory Airway 33 Pressure Peak Inspiratory Airway 32 Pressure Peak Inspiratory Airway 35 Pressure Peak Inspiratory Airway 32 Pressure Peak Inspiratory Airway 27 Pressure Peak Inspiratory Airway 25 Pressure Peak Inspiratory Airway 27 Pressure Peak Inspiratory Airway 26 Pressure Peak Inspiratory Airway 24 Pressure Peak Inspiratory Airway 31 Pressure Results - Laboratory Findings CBC and BMP: 10/23/17 04:05 10/23/17 04:05 ABG ABG pH 7.39 pH Units (7.32-7.45) 10/23/17 05:34 ABG pCO2 41 mmHg (35-45) 10/23/17 05:34 ABG pO2 114 mmHg (85-104) H 10/23/17 05:34 ABG O2 Saturation 98 % (95-98) 10/23/17 05:34 PT/INR, D-dimer PT 21.3 Seconds (9.4-12.1) H 10/21/17 20:40 Abnormal lab findings: Abnormal lab results WBC 15.5 K/mcL (4.3-11.1) H 10/23/17 04:05 RBC 3.96 M/mcL (4.19-5.50) L 10/23/17 04:05 Hct 37.1 % (37.5-50.1) L 10/23/17 04:05 Plt Count 108 K/mcL (140-400) L 10/23/17 04:05 Band Neutrophils % 14.0 % (0-4) H 10/22/17 02:20 Metamyelocytes % 1.0 % (0) H 10/21/17 20:40 Neutrophils # 14.3 K/mcL (1.6-8.9) H 10/23/17 04:05 Lymphocytes # 0.5 K/mcL (0.6-4.6) L 10/23/17 04:05 Platelet Estimate Decreased (Normal) L 10/23/17 04:05 PT 21.3 Seconds (9.4-12.1) H 10/21/17 20:40 ABG pO2 114 mmHg (85-104) H 10/23/17 05:34 Chloride 115 mEq/L (98-107) H 10/23/17 04:05 BUN 30 mg/dL (6-20) H 10/23/17 04:05 BUN/Creatinine Ratio 33 (6-26) H 10/23/17 04:05 Glucose 148 mg/dL (70-105) H 10/23/17 04:05 POC Glucose 141 mg/dL (70-99) H 10/23/17 06:11 Calculated Osmolality 309 (280-300) H 10/23/17 04:05 Lactic Acid 2.8 mmol/L (0.5-2.2) H 10/22/17 20:15 Calcium 8.0 mg/dL (8.6-10.3) L 10/23/17 04:05 Venous Ioniz Calcium 1.10 mmol/L (1.15-1.35) L 10/23/17 04:18 Phosphorus 4.7 mg/dL (2.7-4.5) H 10/22/17 08:00 Direct Bilirubin 0.4 mg/dL (0.0-0.2) H 10/22/17 01:30 AST 458 Units/L (13-39) H 10/22/17 01:30 ALT 298 Units/L (7-52) H 10/22/17 01:30 Alkaline Phosphatase 117 Units/L (34-104) H 10/22/17 01:30 Troponin I 0.23 ng/mL (< 0.04) H* 10/22/17 20:00 Serum Total Protein 5.9 g/dL (6.4-8.9) L 10/22/17 01:30 Albumin 3.1 g/dL (3.5-5.7) L 10/22/17 01:30 HDL Cholesterol 39 mg/dL (40-59) L 10/22/17 01:30 Vancomycin Trough 26 mcg/mL (5-10) H 10/23/17 04:05 Human Metapneumovir PCR DETECTED (Not Detect) A 10/22/17 01:20 - Microbiology Findings Microbiology Findings: Microbiology, Last 48 Hours 10/22/17 02:15 Sputum Culture - Preliminary Sputum 10/22/17 01:35 Urine Culture - Preliminary Urine,[place] No growth. - Clinical Findings Intake & Output: Intake & Output 10/22/17 10/22/17 10/23/17 15:59 23:59 07:59 Intake Total 1140 / 1140 210 / 210 1310 / 1310 Output Total 350 / 350 275 / 275 150 / 150 Balance 790 / 790 -65 / -65 1160 / 1160 Weight 79.3 kg Consult Discharge Plan - Plan Referrals: Iirs Negrete MD [Primary Care Provider] -
[2017-10-23] MEDS ORDERED: Aminoglycoside Consult 1 EACH MC ONE (09:03)
[2017-10-23] MEDS: Chlorhexidine Rinse 15 ML MOUTHWASH MM SCH ×2 (09:08→19:43)
[2017-10-23] MEDS: Aspirin 81 MG TAB.CHEW PO SCH (14:00)
[2017-10-23] MEDS ORDERED: *HR* FentaNYL (PF) 100 MCG/2 ML VIAL IVP ONE (17:38)
[2017-10-23] MEDS: FentaNYL (PF) 1,000 MCG in 0.9 % Sodium Chloride 80 ML IVC SCH (19:39)
[2017-10-24] MEDS: FentaNYL (PF) 1,000 MCG in 0.9 % Sodium Chloride 80 ML IVC SCH ×2 (00:35→16:13)
[2017-10-24] MEDS: Ipratropium/Albuterol Neb 3 ML IH SCH ×6 (03:35→23:49)
[2017-10-24] MEDS: Lacri-Lube 3.5 GM TUBE BOTH EYES SCH ×5 (04:05→20:26)
[2017-10-24 04:17] LABS: Basophils % 0.1 %; Hematocrit 39.5 % (37.5-50.1); Hemoglobin 13.5 g/dL (12.9-16.9); Immature Granulocytes % 1.3 % (0-4); Lymphocytes # 0.4 K/mcL (0.6-4.6); Lymphocytes % 2.4 %; Mean Corpuscular HGB Conc 34.2 g/dL (31.6-35.5); Mean Corpuscular Hemoglobin 32.3 pg (28.0-33.3); Mean Corpuscular Volume 94.5 fL (83.0-100.0); Mean Platelet Volume 10.7 fL (9.4-12.4); Monocytes % 3.4 %; Nucleated Red Blood Cells 0.3 /100 WBC (0); Platelet Count 110 K/mcL (140-400); Red Blood Count 4.18 M/mcL (4.19-5.50); Red Cell Distribution Width 13.7 % (11.5-14.5); Segmented Neutrophils % 92.8 %
[2017-10-24 04:23] LABS: VBG Ionized Calcium 1.09 mmol/L (1.15-1.35)
[2017-10-24 04:37] LABS: BUN/Creatinine Ratio 41 (6-26); Blood Urea Nitrogen 37 mg/dL (6-20); Calcium 8.4 mg/dL (8.6-10.3); Carbon Dioxide 28 mEq/L (23-29); Chloride 109 mEq/L (98-107); Glucose 161 mg/dL (70-105); Magnesium 2.1 mg/dL (1.6-2.6); Osmolality,Calculated 302 (280-300); Potassium 4.1 mEq/L (3.5-5.1); Sodium 140 mEq/L (136-145); eGFR For African Americans > 60 (> 60); eGFR For Non-African Americans > 60 (> 60)
[2017-10-24 05:09] LABS: Monocytes # 0.5 K/mcL (0.0-1.3); Neutrophils # 14.9 K/mcL (1.6-8.9); Platelet Estimate Decreased (Normal)
[2017-10-24 05:10] LABS: Anisocytosis 1+ (Not Present)
[2017-10-24 05:26] LABS: ABG Base Excess -1 mEq/L (-2 to 3); ABG HCO3 24 mEq/L (21-27); ABG Oxygen Saturation 98 % (95-98); ABG PCO2 41 mmHg (35-45); ABG PH 7.38 pH Units (7.32-7.45); ABG PO2 99 mmHg (85-104); ABG TCO2 25 mEq/L (20-26); Blood Gas Modality ASSIST CONTROL; Blood Gas PEEP 5 cm H2O; Blood Gas Respiration Rate 12; Blood Gas VT 500 cc
[2017-10-24] MEDS: Famotidine 20 MG/2 ML VIAL IVP SCH ×2 (05:40→17:05)
[2017-10-24] MEDS: *HR* Heparin 5,000 UNIT/ML VIAL SQ SCH ×3 (05:40→22:17)
[2017-10-24] MEDS: MethylPREDNISolone 40 MG/ML VIAL IVP SCH ×2 (07:44→16:00)
[2017-10-24] MEDS: Piperacillin/Tazobactam 3.375 GM in 0.9 % Sodium Chloride Mini Bag 100 ML IVPB SCH ×2 (07:44→15:59)
[2017-10-24] MEDS: Aspirin 81 MG TAB.CHEW PO SCH (07:45)
[2017-10-24] MEDS: Chlorhexidine Rinse 15 ML MOUTHWASH MM SCH ×2 (07:45→20:26)
--- NOTE | 2017-10-24 08:23 | Pulmonology Progress Note ---
<Wayen Presley - Last Filed: 10/24/17 10:55> Date of Encounter: 10/24/17 Time of Encounter: 08:55 Assessment and Plan (1) Cardiac arrest Current Visit: Yes Status: Acute Unclear etiology as to provocation for cardiac arrest. Troponin at peak elevation of 1.2 on presentation likely secondary to prolonged CPR which has trended down daily. CT negative for pulmonary embolism given prior history of malignancy. Echocardiogram 10/21 with ejection fraction of 20% with diastolic dysfunction. Continue aspirin 81 mg daily. Continue telemetry. Begin tube feeds today with sliding scale insulin coverage (2) Anoxic brain injury Current Visit: Yes Status: Acute Status post cardiac arrest on 10/21. CT head demonstrates edema consistent with hypoxic injury. Neurology consulted. Overall neurologic prognosis is poor. Hold sedation today as he has had no purposeful movements and for a more accurate neurologic evaluation. (3) Acute respiratory failure with hypoxia Current Visit: Yes Status: Acute Acute respiratory failure secondary to cardiac arrest. CTA negative for pulmonary embolism however concern for right lower lobe infiltrate likely aspiration given the prolonged downtime. Initially on vancomycin and Zosyn empirically. Plan to discontinue vancomycin and continue Zosyn. Sputum culture demonstrated many wbc's with few gram-positive cocci. Positive for human metapneuovirus. Blood cultures no growth to date. Continue mechanical ventilation for neurologic compromise. (4) Dysautonomia Current Visit: Yes Status: Acute Noted to be hypertensive this morning in the 160s/100s. Likely secondary to anoxic brain injury. Hydralazine ordered as needed with target goal of systolic blood pressure less than 180. (5) Lactic acidosis Current Visit: Yes Status: Acute Initial lactic acid of 7.1 likely secondary to prolonged hypoxic event from arrest. Resolved (6) DVT prophylaxis Current Visit: Yes Status: Acute Heparin 5000 units every 8 hours subcutaneous Subjective Principal diagnosis: cardiac arrest Interval history: 24 hour vitals and labs reviewed. 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 Overnight no issues. He was briefly on sedation although this was to treat hypertension. No purposeful movements overnight. He is off sedation as of this morning. He has fixed pupils with absence of primitive motor reflexes. Was noted to be hypertensive overnight. Plan 10/24: Hydralazine added for hypertension. Tube feeds started with SS insulin Q4H correction. Objective PUL Vital signs: Last Vital Signs Temp 98.1 F 10/24/17 08:00 Pulse 94 10/24/17 08:00 Resp 33 10/24/17 08:17 BP 171/110 10/24/17 08:17 Pulse Ox 98 10/24/17 08:17 General appearance: no acute distress Eyes: other (Chemosis bilaterally) ENT: other (Endotracheal tube in place) Neck: supple Effort: other (Mechanically ventilated) Auscultation: right: rhonchi (Course breath sounds on the right. Absent breath sounds on the left) Cardiovascular: regular rate and rhythm Gastrointestinal: normoactive bowel sounds, soft, non-distended Integumentary: normal Extremities: no cyanosis, no edema Musculoskeletal: no deformities other (Off sedation. GCS 3T. Absent primitive reflexes.) other (Unable to assess) Ventilator Settings Ventilator Settings: Ventilator Settings, Last 8 Hours Ventilator Mode CPAP Ventilator Mode A/C Ventilator Mode A/C Ventilator Mode A/C Ventilator Mode A/C Ventilator Mode A/C Ventilator Mode A/C Ventilator Mode A/C Ventilator Mode A/C Ventilator Mode A/C Ventilator Mode A/C Ventilator Tidal Volume 500 Setting Ventilator Tidal Volume 500 Setting Ventilator Tidal Volume 500 Setting Ventilator Tidal Volume 500 Setting Ventilator Tidal Volume 500 Setting Ventilator Tidal Volume 500 Setting Ventilator Tidal Volume 500 Setting Ventilator Tidal Volume 500 Setting Ventilator Tidal Volume 500 Setting Ventilator Tidal Volume 500 Setting Ventilator Respiratory Rate 12 Setting Ventilator Respiratory Rate 12 Setting Ventilator Respiratory Rate 12 Setting Ventilator Respiratory Rate 12 Setting Ventilator Respiratory Rate 12 Setting Ventilator Respiratory Rate 12 Setting Ventilator Respiratory Rate 12 Setting Ventilator Respiratory Rate 12 Setting Ventilator Respiratory Rate 12 Setting Ventilator Respiratory Rate 12 Setting Actual Respiratory Rate 29 Actual Respiratory Rate 18 Actual Respiratory Rate 22 Actual Respiratory Rate 15 Actual Respiratory Rate 23 Actual Respiratory Rate 21 Actual Respiratory Rate 20 Actual Respiratory Rate 23 Actual Respiratory Rate 20 Actual Respiratory Rate 21 Positive End Expiratory 5 Pressure Positive End Expiratory 5 Pressure Positive End Expiratory 5 Pressure Positive End Expiratory 5 Pressure Positive End Expiratory 5 Pressure Positive End Expiratory 5 Pressure Positive End Expiratory 5 Pressure Positive End Expiratory 5 Pressure Positive End Expiratory 5 Pressure Positive End Expiratory 5 Pressure Positive End Expiratory 5 Pressure Peak Inspiratory Airway 16 Pressure Peak Inspiratory Airway 32 Pressure Peak Inspiratory Airway 32 Pressure Peak Inspiratory Airway 35 Pressure Peak Inspiratory Airway 29 Pressure Peak Inspiratory Airway 29 Pressure Peak Inspiratory Airway 30 Pressure Peak Inspiratory Airway 29 Pressure Peak Inspiratory Airway 30 Pressure Peak Inspiratory Airway 28 Pressure Results - Laboratory Findings CBC and BMP: 10/24/17 04:00 10/24/17 04:00 ABG ABG pH 7.38 pH Units (7.32-7.45) 10/24/17 05:23 ABG pCO2 41 mmHg (35-45) 10/24/17 05:23 ABG pO2 99 mmHg (85-104) 10/24/17 05:23 ABG O2 Saturation 98 % (95-98) 10/24/17 05:23 PT/INR, D-dimer PT 21.3 Seconds (9.4-12.1) H 10/21/17 20:40 Abnormal lab findings: Abnormal lab results WBC 16.0 K/mcL (4.3-11.1) H 10/24/17 04:00 RBC 4.18 M/mcL (4.19-5.50) L 10/24/17 04:00 Plt Count 110 K/mcL (140-400) L 10/24/17 04:00 Band Neutrophils % 14.0 % (0-4) H 10/22/17 02:20 Metamyelocytes % 1.0 % (0) H 10/21/17 20:40 Neutrophils # 14.9 K/mcL (1.6-8.9) H 10/24/17 04:00 Lymphocytes # 0.4 K/mcL (0.6-4.6) L 10/24/17 04:00 Nucleated RBCs/100 WBC 0.3 /100 WBC (0) H 10/24/17 04:00 Platelet Estimate Decreased (Normal) L 10/24/17 04:00 Anisocytosis 1+ (Not Present) A 10/24/17 04:00 PT 21.3 Seconds (9.4-12.1) H 10/21/17 20:40 Chloride 109 mEq/L (98-107) H 10/24/17 04:00 BUN 37 mg/dL (6-20) H 10/24/17 04:00 BUN/Creatinine Ratio 41 (6-26) H 10/24/17 04:00 Glucose 161 mg/dL (70-105) H 10/24/17 04:00 POC Glucose 149 mg/dL (70-99) H 10/24/17 05:00 Calculated Osmolality 302 (280-300) H 10/24/17 04:00 Calcium 8.4 mg/dL (8.6-10.3) L 10/24/17 04:00 Venous Ioniz Calcium 1.09 mmol/L (1.15-1.35) L 10/24/17 04:18 Direct Bilirubin 0.4 mg/dL (0.0-0.2) H 10/22/17 01:30 AST 458 Units/L (13-39) H 10/22/17 01:30 ALT 298 Units/L (7-52) H 10/22/17 01:30 Alkaline Phosphatase 117 Units/L (34-104) H 10/22/17 01:30 Troponin I 0.23 ng/mL (< 0.04) H* 10/22/17 20:00 Serum Total Protein 5.9 g/dL (6.4-8.9) L 10/22/17 01:30 Albumin 3.1 g/dL (3.5-5.7) L 10/22/17 01:30 HDL Cholesterol 39 mg/dL (40-59) L 10/22/17 01:30 Vancomycin Trough 26 mcg/mL (5-10) H 10/23/17 04:05 Human Metapneumovir PCR DETECTED (Not Detect) A 10/22/17 01:20 - Microbiology Findings Microbiology Findings: Microbiology, Last 48 Hours 10/22/17 01:35 Urine Culture - Final Urine,[place] No growth. 10/22/17 02:15 Sputum Culture - Final Sputum 10/23/17 20:10 Sputum Culture - Final Sputum 10/21/17 20:40 Blood Culture - Preliminary Peripheral Venipuncture No growth. 10/21/17 20:40 Blood Culture - Preliminary Peripheral Venipuncture No growth. - Clinical Findings Intake & Output: Intake & Output 10/23/17 10/24/17 10/24/17 23:59 07:59 15:59 Intake Total 1140 / 1140 340 / 340 Output Total 200 / 200 425 / 425 Balance 940 / 940 -85 / -85 Weight 76.7 kg - VTE Documentation of Mechanical Device: Intermittent pneumatic compression device Consult Discharge Plan - Plan Referrals: Iris Negrete MD [Primary Care Provider] - <Soumya Zuniga - Last Filed: 10/24/17 16:29> Date of Encounter: 10/24/17 Objective PUL Vital signs: Last Vital Signs Temp 98.1 F 10/24/17 08:00 Pulse 94 10/24/17 08:00 Resp 23 10/24/17 09:24 BP 154/102 10/24/17 09:24 Pulse Ox 99 10/24/17 09:24 Ventilator Settings Ventilator Settings: Ventilator Settings, Last 8 Hours Ventilator Mode A/C Ventilator Mode CPAP Ventilator Mode A/C Ventilator Mode A/C Ventilator Mode A/C Ventilator Mode A/C Ventilator Mode A/C Ventilator Mode A/C Ventilator Mode A/C Ventilator Tidal Volume 500 Setting Ventilator Tidal Volume 500 Setting Ventilator Tidal Volume 500 Setting Ventilator Tidal Volume 500 Setting Ventilator Tidal Volume 500 Setting Ventilator Tidal Volume 500 Setting Ventilator Tidal Volume 500 Setting Ventilator Tidal Volume 500 Setting Ventilator Respiratory Rate 12 Setting Ventilator Respiratory Rate 12 Setting Ventilator Respiratory Rate 12 Setting Ventilator Respiratory Rate 12 Setting Ventilator Respiratory Rate 12 Setting Ventilator Respiratory Rate 12 Setting Ventilator Respiratory Rate 12 Setting Ventilator Respiratory Rate 12 Setting Actual Respiratory Rate 23 Actual Respiratory Rate 29 Actual Respiratory Rate 18 Actual Respiratory Rate 22 Actual Respiratory Rate 15 Actual Respiratory Rate 23 Actual Respiratory Rate 21 Actual Respiratory Rate 20 Positive End Expiratory 5 Pressure Positive End Expiratory 5 Pressure Positive End Expiratory 5 Pressure Positive End Expiratory 5 Pressure Positive End Expiratory 5 Pressure Positive End Expiratory 5 Pressure Positive End Expiratory 5 Pressure Positive End Expiratory 5 Pressure Positive End Expiratory 5 Pressure Peak Inspiratory Airway 33 Pressure Peak Inspiratory Airway 16 Pressure Peak Inspiratory Airway 32 Pressure Peak Inspiratory Airway 32 Pressure Peak Inspiratory Airway 35 Pressure Peak Inspiratory Airway 29 Pressure Peak Inspiratory Airway 29 Pressure Peak Inspiratory Airway 30 Pressure Results - Laboratory Findings CBC and BMP: 10/24/17 04:00 10/24/17 04:00 ABG ABG pH 7.38 pH Units (7.32-7.45) 10/24/17 05:23 ABG pCO2 41 mmHg (35-45) 10/24/17 05:23 ABG pO2 99 mmHg (85-104) 10/24/17 05:23 ABG O2 Saturation 98 % (95-98) 10/24/17 05:23 PT/INR, D-dimer PT 21.3 Seconds (9.4-12.1) H 10/21/17 20:40 Abnormal lab findings: Abnormal lab results WBC 16.0 K/mcL (4.3-11.1) H 10/24/17 04:00 RBC 4.18 M/mcL (4.19-5.50) L 10/24/17 04:00 Plt Count 110 K/mcL (140-400) L 10/24/17 04:00 Band Neutrophils % 14.0 % (0-4) H 10/22/17 02:20 Metamyelocytes % 1.0 % (0) H 10/21/17 20:40 Neutrophils # 14.9 K/mcL (1.6-8.9) H 10/24/17 04:00 Lymphocytes # 0.4 K/mcL (0.6-4.6) L 10/24/17 04:00 Nucleated RBCs/100 WBC 0.3 /100 WBC (0) H 10/24/17 04:00 Platelet Estimate Decreased (Normal) L 10/24/17 04:00 Anisocytosis 1+ (Not Present) A 10/24/17 04:00 PT 21.3 Seconds (9.4-12.1) H 10/21/17 20:40 Chloride 109 mEq/L (98-107) H 10/24/17 04:00 BUN 37 mg/dL (6-20) H 10/24/17 04:00 BUN/Creatinine Ratio 41 (6-26) H 10/24/17 04:00 Glucose 161 mg/dL (70-105) H 10/24/17 04:00 POC Glucose 149 mg/dL (70-99) H 10/24/17 05:00 Calculated Osmolality 302 (280-300) H 10/24/17 04:00 Calcium 8.4 mg/dL (8.6-10.3) L 10/24/17 04:00 Venous Ioniz Calcium 1.09 mmol/L (1.15-1.35) L 10/24/17 04:18 Direct Bilirubin 0.4 mg/dL (0.0-0.2) H 10/22/17 01:30 AST 458 Units/L (13-39) H 10/22/17 01:30 ALT 298 Units/L (7-52) H 10/22/17 01:30 Alkaline Phosphatase 117 Units/L (34-104) H 10/22/17 01:30 Troponin I 0.23 ng/mL (< 0.04) H* 10/22/17 20:00 Serum Total Protein 5.9 g/dL (6.4-8.9) L 10/22/17 01:30 Albumin 3.1 g/dL (3.5-5.7) L 10/22/17 01:30 HDL Cholesterol 39 mg/dL (40-59) L 10/22/17 01:30 Vancomycin Trough 26 mcg/mL (5-10) H 10/23/17 04:05 Human Metapneumovir PCR DETECTED (Not Detect) A 10/22/17 01:20 - Microbiology Findings Microbiology Findings: Microbiology, Last 48 Hours 10/22/17 01:35 Urine Culture - Final Urine,[place] No growth. 10/22/17 02:15 Sputum Culture - Final Sputum 10/23/17 20:10 Sputum Culture - Final Sputum 10/21/17 20:40 Blood Culture - Preliminary Peripheral Venipuncture No growth. 10/21/17 20:40 Blood Culture - Preliminary Peripheral Venipuncture No growth. - Clinical Findings Intake & Output: Intake & Output 10/23/17 10/24/17 10/24/17 23:59 07:59 15:59 Intake Total 1140 / 1140 340 / 340 Output Total 200 / 200 425 / 425 175 / 175 Balance 940 / 940 -85 / -85 -175 / -175 Weight 76.7 kg - Attending Attestation I examined this patient and my medical decision-making was reviewed with the Resident Physician. I agree with the documented findings, disposition and treatment plan as described except to the extent set forth below. Patient seen and examined. Labs, radiology, chart personally reviewed. 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 Appreciate neurologist input Pulmonary: Acceptable oxygenation and ventilation and overall reasonable time on spontaneous breathing trial. Patient will remain intubated until his CODE STATUS and plan of care discussed with the family. Unfortunately his gets extubated today and hopefully when she is able to discussed the case then we have better idea about plan of care. Cardiovascular: Hypertension which I suspect this is central and will treat with hydralazine when necessary GI: Nutrition per dietary and GI prophylaxis per routine Heme: DVT prophylaxis per routine ID: Continue antibiotics and plan to de-escalation Renal; urine out put and renal funtion reviewed Endorcine: blood glucose is monitored Lines: all lines checked and no evidence of infections Skin: skin care to prevent pressure ulcers per nursing routine care Overall prognosis is poor
[2017-10-24] MEDS ORDERED: D5% in Water 1,000 ML IVC PRN (10:46)
[2017-10-24] MEDS ORDERED: *HR* Dextrose 50 % in Water (Syg) 50 ML SYRINGE IVP PRN (10:46)
[2017-10-24] MEDS ORDERED: Dextrose Gel 15 GM/37.5 ML TUBE PO PRN ×2 (10:46)
--- NOTE | 2017-10-24 12:12 | Palliative - Consult Note ---
Date of Encounter: 10/24/17 Time of Encounter: 11:00 - Assessment and Plan (1) Anoxic brain injury Current Visit: Yes Status: Acute Assessment and plan: Patient remains non-responsive. Neurology following. EEG to be completed. (2) Acute respiratory failure with hypoxia Current Visit: Yes Status: Acute Assessment and plan: Patient remains ventilator dependent. Continues to fail weaning trials. Continue Duonebs and ventilator support. (3) Non-small cell lung cancer Current Visit: No Status: Acute Qualifiers: Laterality: left Qualified Code(s): C34.92 - Malignant neoplasm of unspecified part of left bronchus or lung (4) Goals of care, counseling/discussion Current Visit: Yes Status: Acute Assessment and plan: Spoke with son on phone. Son had already left for the day and works tomorrow, but can be available after 230 pm tomorrow. Son reports patient's daughter has been out of town and is flying home tonight, should be able to be here tomorrow to discuss goals of care. Family meeting set for [address] Presley. Palliative-CN HPI - Data of Consult Patient: new to practice Consult date: 10/24/17 Requesting Physician: Joseph Kraft MD Primary Care Provider: Iris Negrete MD - Consult Narrative Palliative Care/Comfort Measures: Palliative care Reason for consult: End of life planning History of present illness: Mr. Hawkins is a 56 year old male arrived to [facility] ED post cardiac arrest after CPR was initiated at home for an undetermined amount of time. Patient's family reported patient has a history of using opiods; however, no effect from Narcan. In [facility] ED, patient was found with a Lactic acid level of greater than 10, troponin 0.10, BNP 205, EKG shown SR and QTC of 456, and a CT negative for acute intercranial hemorrhage. Patient was mechanically ventilated and treated with 3L of saline and initiated Levophed as patient was hypotensive. EMS transferred patient to [facility] ICU. Upon arrival, patient was noted to have a temperature WNL and hypothermia protocol was initiated. Repeated Head CT showed Cerebral and basal ganglia edema worrisome for hypoxic ischemic encephalopathy. CTA completed, showing, no evidence of pulmonary embolic disease , Multifocal right pulmonary infiltrate, most prevalent in the right lower lobe , [place] dependent right lower lobe atelectasis and mild to moderate diffuse emphysematous changes, Changes of left pneumonectomy, and Ascending aortic aneurysm at 4.4 cm maximally. Confirmation of ET tube was confirmed. Patient admitted with diagnosis Anoxic brain injury. 10/22/17-Neurology consult completed. Neurology states the neurological deficits would be significant mental status changes and motor deficits such as those seen in akinetic mutism or permanent vegetative states. Neurological prognosis appears very poor. At approximately 1845 rewarming process begun. 10/24/17-Palliative care consulted to evaluate for end of life care, as patient remains non-responsive without sedation after hypothermia protocol completed. Neurology ordered EEG for further evaluation, though prognosis remains poor. PMH: non-small cell lung cancer s/p partial lobectomy, lung cancer metastisized to brain s/p craniotomy with mass resection. Patient resting in room laying on right side, no family at bedside. Patient remains intubated without sedation and is non-responsive to stimulation. No s/ s of acute distress noted. Spoke with Nurse Kimberly who reports son had been in early but had since left. Called son to arrange family meeting, set tomorrow for 3 pm. CC: Joseph Kraft MD Past Med Surg Social Fam HX - Past Medical History Medical history: cancer (non-small cell lung cancer with mets to the brain that was removed), COPD, other Psychiatric history: anxiety, depression - Past Surgical History Surgical History: other (Left pneumonectomy) - Social History Smoking Status: Current every day smoker Smokeless Tobacco Status: No Alcohol use: none Drug use: none Medications and Allergies Citalopram [CeleXA] 40 mg PO DAILY 10/21/17 [History] Multivit-Min/FA/Lycopen/Lutein [Men 50 Plus Multivitamin Tab] 1 tab PO DAILY 01/02 [History] Ipratropium/Albuterol Neb [Duoneb] 3 ml IH Q6HR 10/22/17 [History] OxyCODONE Immed Rel [Roxicodone 10 MG] 10 mg PO Q6H PRN 10/22/17 [History] 3 Allergy/AdvReac Type Severity Reaction Status Date / Time No Known Allergies Allergy Verified 12/28/16 16:03 ROS unobtainable: due to endotracheal tube Palliative Care-Exam - Constitutional Vitals: Temp Pulse Resp BP Pulse Ox 98.1 F 85 25 156/92 99 10/24/17 08:00 10/24/17 10:00 10/24/17 11:11 10/24/17 11:11 10/24/17 11:11 General appearance: Present: no acute distress Exam: Non reactive. - Head Head Exam: Present: atraumatic, normal inspection, normocephalic - Eye Eye exam: Absent: periorbital swelling, periorbital tenderness Pupils: Present: fixed, unequal Additional comments: Right eye slow reaction to light. Left pupil no reaction. - ENT ENT exam: Present: mucous membranes dry, normal external ear exam - Expanded ENT Exam Mouth Exam: Present: normal external inspection. Absent: drooling - Neck Neck exam: Present: normal inspection - Respiratory Respiratory exam: Present: wheezes Additional comments: to right lung. No lung sounds to left; hx of pneumectomy. - Cardiovascular Cardiovascular exam: Present: +S1, +S2. Absent: irregular rhythm, JVD - Expanded Cardiovascular Exam Peripheral pulses: 1+: Dorsalis Pedis (L) PM, Dorsalis Pedis (R) PM, 2+: Carotid (L) PM, Carotid (R) PM - GI/Abdominal Exam GI/Abdominal exam: Present: diminished bowel sounds, soft. Absent: tenderness - Rectal Rectal Exam: Present: deferred - Extremities Exam Extremities exam: Absent: calf tenderness, normal capillary refill, pedal edema , tenderness - Neurological Exam Neurological exam: Present: altered - Expanded Neurological Exam Coma Scale Eye Opening: None Coma Scale Motor Response: None Coma Scale Verbal Response: None Coma Scale Total: 3 - Psychiatric Psychiatric exam: Present: flat affect - Skin Skin exam: Present: dry, mottled, pallor Internal Medicine - CN: Reslt - Labs CBC & Chem 7: 10/24/17 04:00 10/24/17 04:00 Labs: Short CBC 10/24/17 Range/Units 04:00 WBC 16.0 H (4.3-11.1) K/mcL Hgb 13.5 (12.9-16.9) g/dL Hct 39.5 (37.5-50.1) % Plt Count 110 L (140-400) K/mcL Neutrophils # 14.9 H (1.6-8.9) K/mcL BMP 10/24/17 04:00 Sodium 140 Potassium 4.1 Chloride 109 H Carbon Dioxide 28 BUN 37 H Creatinine 0.90 Glucose 161 H Calcium 8.4 L - ABG Interpretation ABG results: ABG ABG pH 7.38 pH Units (7.32-7.45) 10/24/17 05:23 ABG pCO2 41 mmHg (35-45) 10/24/17 05:23 ABG pO2 99 mmHg (85-104) 10/24/17 05:23 ABG O2 Saturation 98 % (95-98) 10/24/17 05:23 PT/INR, D-dimer PT 21.3 Seconds (9.4-12.1) H 10/21/17 20:40 - Impressions Impressions Chest X-Ray 10/21/17 22:06 IMPRESSION: 1. Endotracheal tube tip is 6.9 cm above the rodney. 2. Increased patchy airspace opacities in the right lung. 3. Postsurgical change prior left pneumonectomy. 4. Nasogastric tube is coiled in the stomach. D/ / 10/22/2017 07:09:28 Boogie Bennett MD / corazon Interpreting Provider: Boogie Bennett MD Consult Discharge Plan - Plan Referrals: Iris Negrete MD [Primary Care Provider] - Palliative Quality Palliative Quality: Screen for Code Status: Yes, Screen for Goals of Care: Yes, Screen for Pain: Yes, If Pain Regimen Started, Initiate Bowel Regimen: NA, Screen for Nausea/Vomitting: NA (non responsive.) Code Status: 10/21/17 17:03 Resuscitation Status: Active [RES] Routine Comment: Resuscitation Status: Full Code
[2017-10-24] MEDS: Insulin LISPRO 300 UNITS/3 ML VIAL SQ SCH ×3 (12:50→20:26)
--- NOTE | 2017-10-24 13:10 | Neurology Progress Note ---
Date of Encounter: 10/24/17 Time of Encounter: 13:09 Assessment and Plan (1) Anoxic brain injury Current Visit: Yes Status: Acute Overall speaking the patient is currently off any type of sedation and is euthermic and he still remains unresponsive therefore his neurological prognosis remains very poor. His brain stem functions are at least partial preserved at this time. MRI of brain may be beneficial in delineating the extent of intracranial abnormality Differentials for the CT findings include diffuse anoxic brain injury, massive posterior circulation infarct/occlusion, and less like cerebral venous thrombosis. Will recommend routine EEG today. CTA of brain to assess possible PHON[employer]GRAPH [employer]ID[employer]ER occlusion. Subjective Principal diagnosis: cardiac arrest Interval history: Patient seen and examined. He has bee off any type of sedation and is currently with normal body temperature since yesterday. No spontaneous movements seen. Not responding to painful stimuli. Patient found to have fixed pupils but has spontaneous breathing. There appears to intermittent lower eyelid fasciculation noted both side, not necessary at the same time. No myoclonic jerking movements noted. Objective - Constitutional Vitals: Temp Pulse Resp BP Pulse Ox 98.4 F 95 29 170/99 99 10/24/17 12:00 10/24/17 12:00 10/24/17 13:03 10/24/17 13:03 10/24/17 13:03 - Neurological Exam Sensorimotor examination: Present: other (Unable to assess due to being in coma) Motor Examination: Present: other (Patient is sedated and on hypothermal protocol. No spontaneous limb movmenet noted. Muscle tone was preserved both arms, so as DTRs. No response to painful stimuli) Sensation intact: Present: other (Unable to assess due to coma) Posture: Present: other (None) Reflexes: Biceps: 1+, Triceps: 1+, Brachioradialis: 1+ Mental Status Examination: Present: coma Cranial nerve examination: Present: PERRL (Midline 2mm in sizes bilaterally, minimal light reflex, difficult to confirm. no spontaneous blinking), EOMI ( Oculocephalic reflex somewhat preserved), visual garcia intact (Unable to assess ), corneal reflexes brisk symmetrically (No vigorous corneal reflexes bilaterally), no facial asymmetry is present, gag reflex intact (preserved) - VTE Documentation of Mechanical Device: Intermittent pneumatic compression device Results - Laboratory Findings CBC and BMP: 10/24/17 04:00 10/24/17 04:00 Abnormal lab findings: Abnormal lab results WBC 16.0 K/mcL (4.3-11.1) H 10/24/17 04:00 RBC 4.18 M/mcL (4.19-5.50) L 10/24/17 04:00 Plt Count 110 K/mcL (140-400) L 10/24/17 04:00 Band Neutrophils % 14.0 % (0-4) H 10/22/17 02:20 Metamyelocytes % 1.0 % (0) H 10/21/17 20:40 Neutrophils # 14.9 K/mcL (1.6-8.9) H 10/24/17 04:00 Lymphocytes # 0.4 K/mcL (0.6-4.6) L 10/24/17 04:00 Nucleated RBCs/100 WBC 0.3 /100 WBC (0) H 10/24/17 04:00 Platelet Estimate Decreased (Normal) L 10/24/17 04:00 Anisocytosis 1+ (Not Present) A 10/24/17 04:00 PT 21.3 Seconds (9.4-12.1) H 10/21/17 20:40 Chloride 109 mEq/L (98-107) H 10/24/17 04:00 BUN 37 mg/dL (6-20) H 10/24/17 04:00 BUN/Creatinine Ratio 41 (6-26) H 10/24/17 04:00 Glucose 161 mg/dL (70-105) H 10/24/17 04:00 POC Glucose 146 mg/dL (70-99) H 10/24/17 11:50 Calculated Osmolality 302 (280-300) H 10/24/17 04:00 Calcium 8.4 mg/dL (8.6-10.3) L 10/24/17 04:00 Venous Ioniz Calcium 1.09 mmol/L (1.15-1.35) L 10/24/17 04:18 Direct Bilirubin 0.4 mg/dL (0.0-0.2) H 10/22/17 01:30 AST 458 Units/L (13-39) H 10/22/17 01:30 ALT 298 Units/L (7-52) H 10/22/17 01:30 Alkaline Phosphatase 117 Units/L (34-104) H 10/22/17 01:30 Troponin I 0.23 ng/mL (< 0.04) H* 10/22/17 20:00 Serum Total Protein 5.9 g/dL (6.4-8.9) L 10/22/17 01:30 Albumin 3.1 g/dL (3.5-5.7) L 10/22/17 01:30 HDL Cholesterol 39 mg/dL (40-59) L 10/22/17 01:30 Vancomycin Trough 26 mcg/mL (5-10) H 10/23/17 04:05 Human Metapneumovir PCR DETECTED (Not Detect) A 10/22/17 01:20 Consult Discharge Plan - Plan Referrals: Iris Negrete MD [Primary Care Provider] -
--- NOTE | 2017-10-24 16:49 | EEG/EMG/Oth Biometrics Report ---
EEG Procedure Report Date of procedure: 10/24/17 EEG Procedure: Routine EEG Procedure Note: Report: This EEG was acquired with standard international 10-20 electrode placement system with EKG recording. The background activity during this EEG was replaced by persistent, almost pattern of electrocerebral silence with no reactivity except muscle EMG artefact throughout the whole recording. There are no electrographic seizures identified during this tracing. There are no epileptiform discharges and focal slowing noted during this recording. Photic stimulation produced no abnormalities. HV not performed during this study. EKG tracing showed no significant cardiac dysarrhythmia. Impression: This is a severely abnormal EEG due to presence of persistent pattern resembling electrocerebral silence with no reactivity noted. Clinical Correlation: This EEG is consistent with severe diffuse cerebral dysfunction that can be seen in patients with anoxic brain injury diffuse severe encephalopathy, metabolic/toxic, electrolyte derangement, sedative effects. Clinical correlation suggested.
[2017-10-25] MEDS: MethylPREDNISolone 40 MG/ML VIAL IVP SCH ×3 (00:01→16:13)
[2017-10-25] MEDS: Piperacillin/Tazobactam 3.375 GM in 0.9 % Sodium Chloride Mini Bag 100 ML IVPB SCH ×3 (00:01→16:13)
[2017-10-25] MEDS: Lacri-Lube 3.5 GM TUBE BOTH EYES SCH ×6 (00:02→20:18)
[2017-10-25] MEDS: Insulin LISPRO 300 UNITS/3 ML VIAL SQ SCH ×6 (00:02→20:18)
[2017-10-25] MEDS: Ipratropium/Albuterol Neb 3 ML IH SCH ×6 (04:22→23:43)
[2017-10-25] MEDS: Acetaminophen 325 MG TABLET PO PRN ×3 (04:28→20:12)
[2017-10-25 04:56] LABS: Basophils # 0.1 K/mcL (0.0-0.2); Basophils % 0.4 %; Hematocrit 43.8 % (37.5-50.1); Immature Granulocytes % 1.5 % (0-4); Lymphocytes # 0.3 K/mcL (0.6-4.6); Lymphocytes % 1.6 %; Mean Corpuscular Hemoglobin 32.3 pg (28.0-33.3); Mean Corpuscular Volume 94.8 fL (83.0-100.0); Mean Platelet Volume 10.9 fL (9.4-12.4); Monocytes # 0.7 K/mcL (0.0-1.3); Monocytes % 3.5 %; Nucleated Red Blood Cells 0.5 /100 WBC (0); Platelet Count 148 K/mcL (140-400); Red Blood Count 4.62 M/mcL (4.19-5.50); Red Cell Distribution Width 13.9 % (11.5-14.5)
[2017-10-25 05:02] LABS: ABG Ionized Calcium 1.16 mmol/L (1.15-1.35)
[2017-10-25 05:04] LABS: Neutrophils # 19.3 K/mcL (1.6-8.9)
[2017-10-25 05:05] LABS: Hemoglobin 14.9 g/dL (12.9-16.9)
[2017-10-25 05:08] LABS: BUN/Creatinine Ratio 43 (6-26); Blood Urea Nitrogen 40 mg/dL (6-20); Calcium 8.8 mg/dL (8.6-10.3); Carbon Dioxide 29 mEq/L (23-29); Chloride 109 mEq/L (98-107); Glucose 257 mg/dL (70-105); Magnesium 1.8 mg/dL (1.6-2.6); Osmolality,Calculated 319 (280-300); Potassium 3.8 mEq/L (3.5-5.1); Sodium 145 mEq/L (136-145); eGFR For African Americans > 60 (> 60); eGFR For Non-African Americans > 60 (> 60)
[2017-10-25 05:40] LABS: Platelet Estimate Normal (Normal); Reactive Lymphocytes Present (Not Present); Toxic Granulation Present (Not Present)
[2017-10-25] MEDS: Famotidine 20 MG/2 ML VIAL IVP SCH ×2 (05:55→18:19)
[2017-10-25] MEDS: *HR* Heparin 5,000 UNIT/ML VIAL SQ SCH ×3 (05:55→22:27)
[2017-10-25 06:23] LABS: ABG Base Excess 3 mEq/L (-2 to 3); ABG HCO3 30 mEq/L (21-27); ABG Oxygen Saturation 92 % (95-98); ABG PCO2 54 mmHg (35-45); ABG PH 7.35 pH Units (7.32-7.45); ABG PO2 68 mmHg (85-104); ABG TCO2 31 mEq/L (20-26); Blood Gas Modality ASSIST CONTROL; Blood Gas PEEP 5 cm H2O; Blood Gas Respiration Rate 12; Blood Gas VT 500 cc
--- NOTE | 2017-10-25 09:20 | Neurology Progress Note ---
Date of Encounter: 10/25/17 Time of Encounter: 09:15 Assessment and Plan (1) Anoxic brain injury Current Visit: Yes Status: Acute Overall speaking the patient is currently off any type of sedation and is euthermic and he still remains unresponsive therefore his neurological prognosis remains very poor. His brain stem functions are at least partial preserved at this time but he lost pupil reflexes and oculocephalic reflex. DTRs diminished diffusely. CTA of neck and head showed no significant abnormality and no RIB ST[employer] HEEL DIPPER occlusion. Etiology of CT findings are again likely related to diffuse anoxic brain injury. Neurological prognosis is very poor from clinical examination, EEG findings and imaging studies. Subjective Principal diagnosis: cardiac arrest Interval history: Patient seen and examined. He has bee off any type of sedation and temperature protocol since yesterday. had routine EEG which showed significant diffuse flattening of EEG background with no reactivity. However, the EEG was not done via brain protocol. EMG activity noted during study. Also completed CTA of neck and brain which showed no significant flow limiting stenosis in the brain and neck except short segment left vertebral artery moderate stenosis. Clinically, patient remains unresponsive. No seizure activity noted. No spontaneous movement. Gag reflexes preserved but he is losing deep tendon reflexes as well as some of the brain stem reflexes such as oculocephalis reflex and pupil light reflexes. . Objective - Constitutional Vitals: Temp Pulse Resp BP Pulse Ox 100.3 F H 112 28 141/88 99 10/25/17 08:00 10/25/17 09:00 10/25/17 09:00 10/25/17 09:00 10/25/17 09:00 - Neurological Exam Sensorimotor examination: Present: other (Unable to assess due to being in coma) Motor Examination: Present: other (Flaccid paralysis all extremities. Compared to yesterday muscle diminishe throughout) Sensation intact: Present: other (Unable to assess due to coma) Posture: Present: other (None) Reflexes: Biceps: 0, Triceps: 0, Brachioradialis: 0, Patella: 0, Achilles: 0 Mental Status Examination: Present: coma Cranial nerve examination: Present: PERRL (Midline 2mm in sizes bilaterally, midline and no light reflexes can be confirmed. No spontaneous blinking), EOMI ( Oculocephalic reflex is lost), visual garcia intact (Unable to assess), corneal reflexes brisk symmetrically (No vigorous corneal reflexes bilaterally), no facial asymmetry is present, gag reflex intact (preserved) - VTE Documentation of Mechanical Device: Intermittent pneumatic compression device Results - Laboratory Findings CBC and BMP: 10/25/17 04:00 10/25/17 04:00 Abnormal lab findings: Abnormal lab results WBC 20.8 K/mcL (4.3-11.1) H 10/25/17 04:00 Band Neutrophils % 14.0 % (0-4) H 10/22/17 02:20 Metamyelocytes % 1.0 % (0) H 10/21/17 20:40 Neutrophils # 19.3 K/mcL (1.6-8.9) H 10/25/17 04:00 Lymphocytes # 0.3 K/mcL (0.6-4.6) L 10/25/17 04:00 Nucleated RBCs/100 WBC 0.5 /100 WBC (0) H 10/25/17 04:00 Reactive Lymphocytes Present (Not Present) A 10/25/17 04:00 Toxic Granulation Present (Not Present) A 10/25/17 04:00 Anisocytosis 1+ (Not Present) A 10/24/17 04:00 PT 21.3 Seconds (9.4-12.1) H 10/21/17 20:40 ABG pCO2 54 mmHg (35-45) H 10/25/17 06:19 ABG pO2 68 mmHg (85-104) L 10/25/17 06:19 ABG HCO3 30 mEq/L (21-27) H 10/25/17 06:19 ABG Total CO2 31 mEq/L (20-26) H 10/25/17 06:19 ABG O2 Saturation 92 % (95-98) L 10/25/17 06:19 Chloride 109 mEq/L (98-107) H 10/25/17 04:00 BUN 40 mg/dL (6-20) H 10/25/17 04:00 BUN/Creatinine Ratio 43 (6-26) H 10/25/17 04:00 Glucose 257 mg/dL (70-105) H 10/25/17 04:00 POC Glucose 209 mg/dL (70-99) H 10/25/17 07:24 Calculated Osmolality 319 (280-300) H 10/25/17 04:00 Venous Ioniz Calcium 1.10 mmol/L (1.15-1.35) L 10/24/17 13:09 Direct Bilirubin 0.4 mg/dL (0.0-0.2) H 10/22/17 01:30 AST 458 Units/L (13-39) H 10/22/17 01:30 ALT 298 Units/L (7-52) H 10/22/17 01:30 Alkaline Phosphatase 117 Units/L (34-104) H 10/22/17 01:30 Troponin I 0.23 ng/mL (< 0.04) H* 10/22/17 20:00 Serum Total Protein 5.9 g/dL (6.4-8.9) L 10/22/17 01:30 Albumin 3.1 g/dL (3.5-5.7) L 10/22/17 01:30 HDL Cholesterol 39 mg/dL (40-59) L 10/22/17 01:30 Vancomycin Trough 26 mcg/mL (5-10) H 10/23/17 04:05 Human Metapneumovir PCR DETECTED (Not Detect) A 10/22/17 01:20 Consult Discharge Plan - Plan Referrals: Iris Negrete MD [Primary Care Provider] -
--- NOTE | 2017-10-25 09:24 | Pulmonology Progress Note ---
<JacielBrian - Last Filed: 10/25/17 09:29> Date of Encounter: 10/25/17 Time of Encounter: 09:23 Assessment and Plan (1) Anoxic brain injury Current Visit: Yes Status: Acute -Status post cardiac arrest on 10/21 -CT head demonstrates edema consistent with hypoxic injury Per EEG report: -There are no electrographic seizures identified during this tracing -There are no epileptiform discharges and focal slowing noted during this recording. -Severely abnormal EEG due to presence of persistent pattern resembling electrocerebral silence with no reactivity noted -Consistent with severe diffuse cerebral dysfunction that can be seen in patients with anoxic brain injury diffuse severe encephalopathy, metabolic/toxic , electrolyte derangement, sedative effects Per neurology: -Overall speaking the patient is currently off any type of sedation and is euthermic and he still remains unresponsive therefore his neurological prognosis remains very poor -His brain stem functions are at least partial preserved at this time -MRI of brain may be beneficial in delineating the extent of intracranial abnormality -Differentials for the CT findings include diffuse anoxic brain injury, massive posterior circulation infarct/occlusion, and less like cerebral venous thrombosis. -CTA of brain to assess possible [employer] occlusion (2) Cardiac arrest Current Visit: Yes Status: Acute -Unclear etiology as to provocation for cardiac arrest -Troponin at peak elevation of 1.2 on presentation likely secondary to prolonged CPR which has trended down daily. -CT negative for pulmonary embolism given prior history of malignancy -ECHO 10/21 with ejection fraction of 20% with diastolic dysfunction -Continue aspirin 81 mg daily -Continue telemetry -Begin tube feeds today with sliding scale insulin coverage (3) Acute respiratory failure with hypoxia Current Visit: Yes Status: Acute -Acute respiratory failure secondary to cardiac arrest. -CTA negative for PE however concern for RLL infiltrate likely aspiration given the prolonged downtime -Initially on vancomycin and Zosyn empirically. Plan to discontinue vancomycin and continue Zosyn. -Sputum CX demonstrated many WBCs with few GPC -Positive for human metapneuovirus -Blood CX no growth to date -Continue mechanical ventilation for neurologic compromise (4) Dysautonomia Current Visit: Yes Status: Acute -Noted to be hypertensive this morning in the 160s/100s -Likely secondary to anoxic brain injury -Hydralazine ordered as needed with target goal of systolic blood pressure less than 180 (5) Lactic acidosis Current Visit: Yes Status: Acute -Initial lactic acid of 7.1 likely secondary to prolonged hypoxic event from arrest Subjective Principal diagnosis: cardiac arrest Interval history: Per palliative, there will be a meeting with the family today to discuss goals of care Objective PUL Vital signs: Last Vital Signs Temp 100.3 F H 10/25/17 08:00 Pulse 112 10/25/17 09:00 Resp 28 10/25/17 09:00 BP 141/88 10/25/17 09:00 Pulse Ox 99 10/25/17 09:00 General appearance: no acute distress Eyes: nonicteric ENT: oropharynx moist Neck: supple Effort: normal Auscultation: bilateral: clear Percussion: bilateral: not dull Tactile fremitus: bilateral: normal Cardiovascular: regular rate and rhythm Gastrointestinal: normoactive bowel sounds, non-distended Integumentary: normal Extremities: no cyanosis, no edema, no clubbing Musculoskeletal: no deformities, ROM normal normal mental status, non-focal exam mood appropriate, affect normal Ventilator Settings Ventilator Settings: Ventilator Settings, Last 8 Hours Ventilator Mode VC+ Ventilator Mode VC+ Ventilator Mode VC+ Ventilator Mode A/C Ventilator Mode A/C Ventilator Mode CPAP Ventilator Mode A/C Ventilator Mode A/C Ventilator Mode A/C Ventilator Mode A/C Ventilator Mode A/C Ventilator Mode A/C Ventilator Tidal Volume 500 Setting Ventilator Tidal Volume 500 Setting Ventilator Tidal Volume 500 Setting Ventilator Tidal Volume 500 Setting Ventilator Tidal Volume 500 Setting Ventilator Tidal Volume 500 Setting Ventilator Tidal Volume 500 Setting Ventilator Tidal Volume 500 Setting Ventilator Tidal Volume 500 Setting Ventilator Tidal Volume 500 Setting Ventilator Tidal Volume 500 Setting Ventilator Tidal Volume 500 Setting Ventilator Respiratory Rate 12 Setting Ventilator Respiratory Rate 12 Setting Ventilator Respiratory Rate 12 Setting Ventilator Respiratory Rate 12 Setting Ventilator Respiratory Rate 12 Setting Ventilator Respiratory Rate 12 Setting Ventilator Respiratory Rate 12 Setting Ventilator Respiratory Rate 12 Setting Ventilator Respiratory Rate 12 Setting Ventilator Respiratory Rate 12 Setting Ventilator Respiratory Rate 12 Setting Ventilator Respiratory Rate 12 Setting Actual Respiratory Rate 25 Actual Respiratory Rate 25 Actual Respiratory Rate 25 Actual Respiratory Rate 22 Actual Respiratory Rate 25 Actual Respiratory Rate 27 Actual Respiratory Rate 27 Actual Respiratory Rate 26 Actual Respiratory Rate 26 Actual Respiratory Rate 25 Actual Respiratory Rate 24 Positive End Expiratory 5 Pressure Positive End Expiratory 5 Pressure Positive End Expiratory 5 Pressure Positive End Expiratory 5 Pressure Positive End Expiratory 5 Pressure Positive End Expiratory 5 Pressure Positive End Expiratory 5 Pressure Positive End Expiratory 5 Pressure Positive End Expiratory 5 Pressure Positive End Expiratory 5 Pressure Positive End Expiratory 5 Pressure Positive End Expiratory 5 Pressure Peak Inspiratory Airway 34 Pressure Peak Inspiratory Airway 35 Pressure Peak Inspiratory Airway 30 Pressure Peak Inspiratory Airway 29 Pressure Peak Inspiratory Airway 34 Pressure Peak Inspiratory Airway 36 Pressure Peak Inspiratory Airway 35 Pressure Peak Inspiratory Airway 31 Pressure Peak Inspiratory Airway 34 Pressure Peak Inspiratory Airway 35 Pressure Results - Laboratory Findings CBC and BMP: 10/25/17 04:00 10/25/17 04:00 ABG ABG pH 7.35 pH Units (7.32-7.45) 10/25/17 06:19 ABG pCO2 54 mmHg (35-45) H 10/25/17 06:19 ABG pO2 68 mmHg (85-104) L 10/25/17 06:19 ABG O2 Saturation 92 % (95-98) L 10/25/17 06:19 PT/INR, D-dimer PT 21.3 Seconds (9.4-12.1) H 10/21/17 20:40 Abnormal lab findings: Abnormal lab results WBC 20.8 K/mcL (4.3-11.1) H 10/25/17 04:00 Band Neutrophils % 14.0 % (0-4) H 10/22/17 02:20 Metamyelocytes % 1.0 % (0) H 10/21/17 20:40 Neutrophils # 19.3 K/mcL (1.6-8.9) H 10/25/17 04:00 Lymphocytes # 0.3 K/mcL (0.6-4.6) L 10/25/17 04:00 Nucleated RBCs/100 WBC 0.5 /100 WBC (0) H 10/25/17 04:00 Reactive Lymphocytes Present (Not Present) A 10/25/17 04:00 Toxic Granulation Present (Not Present) A 10/25/17 04:00 Anisocytosis 1+ (Not Present) A 10/24/17 04:00 PT 21.3 Seconds (9.4-12.1) H 10/21/17 20:40 ABG pCO2 54 mmHg (35-45) H 10/25/17 06:19 ABG pO2 68 mmHg (85-104) L 10/25/17 06:19 ABG HCO3 30 mEq/L (21-27) H 10/25/17 06:19 ABG Total CO2 31 mEq/L (20-26) H 10/25/17 06:19 ABG O2 Saturation 92 % (95-98) L 10/25/17 06:19 Chloride 109 mEq/L (98-107) H 10/25/17 04:00 BUN 40 mg/dL (6-20) H 10/25/17 04:00 BUN/Creatinine Ratio 43 (6-26) H 10/25/17 04:00 Glucose 257 mg/dL (70-105) H 10/25/17 04:00 POC Glucose 209 mg/dL (70-99) H 10/25/17 07:24 Calculated Osmolality 319 (280-300) H 10/25/17 04:00 Venous Ioniz Calcium 1.10 mmol/L (1.15-1.35) L 10/24/17 13:09 Direct Bilirubin 0.4 mg/dL (0.0-0.2) H 10/22/17 01:30 AST 458 Units/L (13-39) H 10/22/17 01:30 ALT 298 Units/L (7-52) H 10/22/17 01:30 Alkaline Phosphatase 117 Units/L (34-104) H 10/22/17 01:30 Troponin I 0.23 ng/mL (< 0.04) H* 10/22/17 20:00 Serum Total Protein 5.9 g/dL (6.4-8.9) L 10/22/17 01:30 Albumin 3.1 g/dL (3.5-5.7) L 10/22/17 01:30 HDL Cholesterol 39 mg/dL (40-59) L 10/22/17 01:30 Vancomycin Trough 26 mcg/mL (5-10) H 10/23/17 04:05 Human Metapneumovir PCR DETECTED (Not Detect) A 10/22/17 01:20 - Microbiology Findings Microbiology Findings: Microbiology, Last 48 Hours 10/23/17 22:50 Urine Culture - Preliminary Urine,[place] No growth. 10/22/17 01:35 Urine Culture - Final Urine,[place] No growth. 10/22/17 02:15 Sputum Culture - Final Sputum 10/23/17 20:10 Sputum Culture - Final Sputum 10/21/17 20:40 Blood Culture - Preliminary Peripheral Venipuncture No growth. 10/21/17 20:40 Blood Culture - Preliminary Peripheral Venipuncture No growth. - Clinical Findings Intake & Output: Intake & Output 10/24/17 10/25/17 10/25/17 23:59 07:59 15:59 Intake Total 526 / 526 900 / 900 337 / 337 Output Total 475 / 475 650 / 650 300 / 300 Balance 51 / 51 250 / 250 37 / 37 Weight 74.9 kg - VTE Documentation of Mechanical Device: Intermittent pneumatic compression device Consult Discharge Plan - Plan Referrals: Iris Negrete MD [Primary Care Provider] - <Soumya Zuniga - Last Filed: 10/25/17 09:42> Date of Encounter: 10/25/17 Objective PUL Vital signs: Last Vital Signs Temp 100.3 F H 10/25/17 08:00 Pulse 112 10/25/17 09:00 Resp 28 10/25/17 09:00 BP 141/88 10/25/17 09:00 Pulse Ox 99 10/25/17 09:00 Ventilator Settings Ventilator Settings: Ventilator Settings, Last 8 Hours Ventilator Mode VC+ Ventilator Mode VC+ Ventilator Mode VC+ Ventilator Mode A/C Ventilator Mode A/C Ventilator Mode CPAP Ventilator Mode A/C Ventilator Mode A/C Ventilator Mode A/C Ventilator Mode A/C Ventilator Mode A/C Ventilator Mode A/C Ventilator Tidal Volume 500 Setting Ventilator Tidal Volume 500 Setting Ventilator Tidal Volume 500 Setting Ventilator Tidal Volume 500 Setting Ventilator Tidal Volume 500 Setting Ventilator Tidal Volume 500 Setting Ventilator Tidal Volume 500 Setting Ventilator Tidal Volume 500 Setting Ventilator Tidal Volume 500 Setting Ventilator Tidal Volume 500 Setting Ventilator Tidal Volume 500 Setting Ventilator Tidal Volume 500 Setting Ventilator Respiratory Rate 12 Setting Ventilator Respiratory Rate 12 Setting Ventilator Respiratory Rate 12 Setting Ventilator Respiratory Rate 12 Setting Ventilator Respiratory Rate 12 Setting Ventilator Respiratory Rate 12 Setting Ventilator Respiratory Rate 12 Setting Ventilator Respiratory Rate 12 Setting Ventilator Respiratory Rate 12 Setting Ventilator Respiratory Rate 12 Setting Ventilator Respiratory Rate 12 Setting Ventilator Respiratory Rate 12 Setting Actual Respiratory Rate 25 Actual Respiratory Rate 25 Actual Respiratory Rate 25 Actual Respiratory Rate 22 Actual Respiratory Rate 25 Actual Respiratory Rate 27 Actual Respiratory Rate 27 Actual Respiratory Rate 26 Actual Respiratory Rate 26 Actual Respiratory Rate 25 Actual Respiratory Rate 24 Positive End Expiratory 5 Pressure Positive End Expiratory 5 Pressure Positive End Expiratory 5 Pressure Positive End Expiratory 5 Pressure Positive End Expiratory 5 Pressure Positive End Expiratory 5 Pressure Positive End Expiratory 5 Pressure Positive End Expiratory 5 Pressure Positive End Expiratory 5 Pressure Positive End Expiratory 5 Pressure Positive End Expiratory 5 Pressure Positive End Expiratory 5 Pressure Peak Inspiratory Airway 34 Pressure Peak Inspiratory Airway 35 Pressure Peak Inspiratory Airway 30 Pressure Peak Inspiratory Airway 29 Pressure Peak Inspiratory Airway 34 Pressure Peak Inspiratory Airway 36 Pressure Peak Inspiratory Airway 35 Pressure Peak Inspiratory Airway 31 Pressure Peak Inspiratory Airway 34 Pressure Peak Inspiratory Airway 35 Pressure Results - Laboratory Findings CBC and BMP: 10/25/17 04:00 10/25/17 04:00 ABG ABG pH 7.35 pH Units (7.32-7.45) 10/25/17 06:19 ABG pCO2 54 mmHg (35-45) H 10/25/17 06:19 ABG pO2 68 mmHg (85-104) L 10/25/17 06:19 ABG O2 Saturation 92 % (95-98) L 10/25/17 06:19 PT/INR, D-dimer PT 21.3 Seconds (9.4-12.1) H 10/21/17 20:40 Abnormal lab findings: Abnormal lab results WBC 20.8 K/mcL (4.3-11.1) H 10/25/17 04:00 Band Neutrophils % 14.0 % (0-4) H 10/22/17 02:20 Metamyelocytes % 1.0 % (0) H 10/21/17 20:40 Neutrophils # 19.3 K/mcL (1.6-8.9) H 10/25/17 04:00 Lymphocytes # 0.3 K/mcL (0.6-4.6) L 10/25/17 04:00 Nucleated RBCs/100 WBC 0.5 /100 WBC (0) H 10/25/17 04:00 Reactive Lymphocytes Present (Not Present) A 10/25/17 04:00 Toxic Granulation Present (Not Present) A 10/25/17 04:00 Anisocytosis 1+ (Not Present) A 10/24/17 04:00 PT 21.3 Seconds (9.4-12.1) H 10/21/17 20:40 ABG pCO2 54 mmHg (35-45) H 10/25/17 06:19 ABG pO2 68 mmHg (85-104) L 10/25/17 06:19 ABG HCO3 30 mEq/L (21-27) H 10/25/17 06:19 ABG Total CO2 31 mEq/L (20-26) H 10/25/17 06:19 ABG O2 Saturation 92 % (95-98) L 10/25/17 06:19 Chloride 109 mEq/L (98-107) H 10/25/17 04:00 BUN 40 mg/dL (6-20) H 10/25/17 04:00 BUN/Creatinine Ratio 43 (6-26) H 10/25/17 04:00 Glucose 257 mg/dL (70-105) H 10/25/17 04:00 POC Glucose 209 mg/dL (70-99) H 10/25/17 07:24 Calculated Osmolality 319 (280-300) H 10/25/17 04:00 Venous Ioniz Calcium 1.10 mmol/L (1.15-1.35) L 10/24/17 13:09 Direct Bilirubin 0.4 mg/dL (0.0-0.2) H 10/22/17 01:30 AST 458 Units/L (13-39) H 10/22/17 01:30 ALT 298 Units/L (7-52) H 10/22/17 01:30 Alkaline Phosphatase 117 Units/L (34-104) H 10/22/17 01:30 Troponin I 0.23 ng/mL (< 0.04) H* 10/22/17 20:00 Serum Total Protein 5.9 g/dL (6.4-8.9) L 10/22/17 01:30 Albumin 3.1 g/dL (3.5-5.7) L 10/22/17 01:30 HDL Cholesterol 39 mg/dL (40-59) L 10/22/17 01:30 Vancomycin Trough 26 mcg/mL (5-10) H 10/23/17 04:05 Human Metapneumovir PCR DETECTED (Not Detect) A 10/22/17 01:20 - Microbiology Findings Microbiology Findings: Microbiology, Last 48 Hours 10/23/17 22:50 Urine Culture - Preliminary Urine,[place] No growth. 10/22/17 01:35 Urine Culture - Final Urine,[place] No growth. 10/22/17 02:15 Sputum Culture - Final Sputum 10/23/17 20:10 Sputum Culture - Final Sputum 10/21/17 20:40 Blood Culture - Preliminary Peripheral Venipuncture No growth. 10/21/17 20:40 Blood Culture - Preliminary Peripheral Venipuncture No growth. - Clinical Findings Intake & Output: Intake & Output 04/09/18 04/10/18 04/10/18 23:59 07:59 15:59 Intake Total 526 / 526 900 / 900 337 / 337 Output Total 475 / 475 650 / 650 300 / 300 Balance 51 / 51 250 / 250 37 / 37 Weight 74.9 kg - Attending Attestation I examined this patient and my medical decision-making was reviewed with the Resident Physician. I agree with the documented findings, disposition and treatment plan as described except to the extent set forth below. Patient seen and examined. Labs, radiology, chart personally reviewed. 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 Awaiting family meeting Pulmonary: Acceptable oxygenation and ventilation patient failed spontaneous breathing trial Cardiovascular: Hypertension which is most likely related to central cause. Treat when necessary GI: Nutrition per dietary and GI prophylaxis per routine Heme: DVT prophylaxis per routine ID: Continue antibiotics and plan to de-escalation. Fever just most likely central cause Renal; urine out put and renal funtion reviewed Endorcine: blood glucose is monitored Lines: all lines checked and no evidence of infections Skin: skin care to prevent pressure ulcers per nursing routine care
--- NOTE | 2017-10-25 09:48 | Palliative Progress Note ---
Date of Encounter: 10/25/17 Time of Encounter: 09:15 - Assessment and plan (1) Anoxic brain injury Current Visit: Yes Status: Acute Assessment and plan: EEG performed: Impression: This is a severely abnormal EEG due to presence of persistent pattern resembling electrocerebral silence with no reactivity noted. Clinical Correlation: This EEG is consistent with severe diffuse cerebral dysfunction that can be seen in patients with anoxic brain injury diffuse severe encephalopathy, metabolic/toxic, electrolyte derangement, sedative effects. It should be noted that patient was off of sedation and electrolytes not clinically significant, as most were normal, during testing. Patient has poor prognosis per Neurology. Follow Neurology's recommendations. (2) Acute respiratory failure with hypoxia Current Visit: Yes Status: Acute Assessment and plan: Patient remains ventilator dependent. Continue Ventilator and duonebs. (3) Non-small cell lung cancer Current Visit: No Status: Acute Qualifiers: Laterality: left Qualified Code(s): C34.92 - Malignant neoplasm of unspecified part of left bronchus or lung (4) Goals of care, counseling/discussion Current Visit: Yes Status: Acute Assessment and plan: Family meeting set for 3 pm today. 15:00-Met with Patient's Son Erickson, Daughter Polly, Daughter in Law Polly, and Patient's . Explained current prognosis of patient. Explained risk of repeat CPR. Shared results of EEG and neurology consultation. Patient's expresses wishes to continue current treatment plan. Established code status as FULL Code, only wish to code one more time. I spent 60 minutes face to face with the patient, of which more than 50% (45 minutes) was spend in counseling and coordination of care with family. - Time Spent With Patient Total time spent is greater than 50% in coordination of care (as documented) at patient's floor/unit and/or counseling patient: - Subjective Interval history: Patient resting quietly in bed. Nurse Landaverde at bedside, reports worsening condition. No family present at bedside. Patient remains non-reactive to stimulation. Patient remains intubated without sedation present. No gag reflex noted. Spoke with family yesterday afternoon and plan to meet today at 3 pm. Nurse Landaverde notified. - Constitutional Vitals: Abnormal lab results WBC 20.8 K/mcL (4.3-11.1) H 10/25/17 04:00 Band Neutrophils % 14.0 % (0-4) H 10/22/17 02:20 Metamyelocytes % 1.0 % (0) H 10/21/17 20:40 Neutrophils # 19.3 K/mcL (1.6-8.9) H 10/25/17 04:00 Lymphocytes # 0.3 K/mcL (0.6-4.6) L 10/25/17 04:00 Nucleated RBCs/100 WBC 0.5 /100 WBC (0) H 10/25/17 04:00 Reactive Lymphocytes Present (Not Present) A 10/25/17 04:00 Toxic Granulation Present (Not Present) A 10/25/17 04:00 Anisocytosis 1+ (Not Present) A 10/24/17 04:00 PT 21.3 Seconds (9.4-12.1) H 10/21/17 20:40 ABG pCO2 54 mmHg (35-45) H 10/25/17 06:19 ABG pO2 68 mmHg (85-104) L 10/25/17 06:19 ABG HCO3 30 mEq/L (21-27) H 10/25/17 06:19 ABG Total CO2 31 mEq/L (20-26) H 10/25/17 06:19 ABG O2 Saturation 92 % (95-98) L 10/25/17 06:19 Chloride 109 mEq/L (98-107) H 10/25/17 04:00 BUN 40 mg/dL (6-20) H 10/25/17 04:00 BUN/Creatinine Ratio 43 (6-26) H 10/25/17 04:00 Glucose 257 mg/dL (70-105) H 10/25/17 04:00 POC Glucose 209 mg/dL (70-99) H 10/25/17 07:24 Calculated Osmolality 319 (280-300) H 10/25/17 04:00 Venous Ioniz Calcium 1.10 mmol/L (1.15-1.35) L 10/24/17 13:09 Direct Bilirubin 0.4 mg/dL (0.0-0.2) H 10/22/17 01:30 AST 458 Units/L (13-39) H 10/22/17 01:30 ALT 298 Units/L (7-52) H 10/22/17 01:30 Alkaline Phosphatase 117 Units/L (34-104) H 10/22/17 01:30 Troponin I 0.23 ng/mL (< 0.04) H* 10/22/17 20:00 Serum Total Protein 5.9 g/dL (6.4-8.9) L 10/22/17 01:30 Albumin 3.1 g/dL (3.5-5.7) L 10/22/17 01:30 HDL Cholesterol 39 mg/dL (40-59) L 10/22/17 01:30 Vancomycin Trough 26 mcg/mL (5-10) H 10/23/17 04:05 Human Metapneumovir PCR DETECTED (Not Detect) A 10/22/17 01:20 General appearance: Present: no acute distress - Head Head exam: Present: atraumatic, normocephalic - Eye Eye exam: Present: normal appearance, conjuntiva pink. Absent: periorbital swelling, periorbital tenderness, PERRL Pupils: Present: fixed. Absent: normal accommodation, PERRL - Expanded Eye Exam Pupils: nonreactive/fixed: Bilateral - ENT ENT exam: Present: mucous membranes moist, normal external ear exam - Neck Neck exam: Present: normal inspection. Absent: tenderness, thyromegaly - Respiratory Respiratory exam: Present: rhonchi. Absent: accessory muscle use Additional comments: to right lung. Hx of Left lung removal. - Cardiovascular Cardiovascular exam: Present: +S1, +S2. Absent: irregular rhythm - Expanded Cardiovascular Exam Peripheral pulses: 1+: Dorsalis Pedis (L) PM, Dorsalis Pedis (R) PM, 2+: Carotid (L) PM, Carotid (R) PM, Radial (L), Radial (R), Posterior Tibialis (L), Posterior Tibialis (R) - GI/Abdominal GI/Abdominal exam: Present: diminished bowel sounds, distended, soft. Absent: tenderness - Rectal Rectal exam: Present: deferred - Extremities Exam Extremities exam: Absent: calf tenderness, normal capillary refill, normal inspection, tenderness - Expanded Upper Extremity Exam Hand wrist exam: Absent: normal inspection (Hands cool to touch.) - Expanded Lower Extremity Exam Lower leg exam: Absent: normal inspection (mottling noted.), swelling, tenderness Ankle exam: Present: swelling Gait: Present: not tested/not observed - Neurological Exam Neurological exam: Present: altered. Absent: reflexes normal Additional comments: Non-reactive to reflexes. - Expanded Neurological Exam Patient oriented to: Absent: person, place, time Coma Scale Eye Opening: None Coma Scale Motor Response: None Coma Scale Verbal Response: None Coma Scale Total: 3 - Psychiatric Psychiatric exam: Present: flat affect - Skin Skin exam: Present: dry, intact, mottled. Absent: diaphoretic Palliative Quality Palliative Quality: Screen for Code Status: Yes, Screen for Goals of Care: Yes, Screen for Pain: Yes, If Pain Regimen Started, Initiate Bowel Regimen: NA, Screen for Nausea/Vomitting: NA (non responsive.) Code Status: 10/21/17 17:03 Resuscitation Status: Active [RES] Routine Comment: Resuscitation Status: Full Code - Labs CBC & Chem 7: 10/25/17 04:00 10/25/17 12:00 Labs: Laboratory Results - last 24 hr 10/24/17 10/24/17 10/24/17 11:50 13:09 15:11 WBC RBC Hgb Hct MCV MCH MCHC RDW Plt Count MPV Immature Gran % Seg Neutrophils % Lymphocytes % Monocytes % Eosinophils % Basophils % Neutrophils # Lymphocytes # Monocytes # Eosinophils # Basophils # Nucleated RBCs/100 WBC Reactive Lymphocytes Toxic Granulation Platelet Estimate ABG pH ABG pCO2 ABG pO2 ABG HCO3 ABG Total CO2 ABG O2 Saturation ABG Base Excess Respiration Rate O2 Delivery Device Blood Gas Modality Inspired O2 Tidal Volume PEEP Sodium Potassium Chloride Carbon Dioxide BUN Creatinine Est GFR ( Amer) Est GFR (Non-Af Amer) BUN/Creatinine Ratio Glucose POC Glucose 146 H 159 H Calculated Osmolality Calcium Venous Ioniz Calcium 1.10 L Magnesium Arterial Blood Ionized Calcium 10/24/17 10/24/17 10/25/17 20:04 23:39 04:00 WBC 20.8 H RBC 4.62 Hgb 14.9 Hct 43.8 MCV 94.8 MCH 32.3 MCHC 34.0 RDW 13.9 Plt Count 148 MPV 10.9 Immature Gran % 1.5 Seg Neutrophils % 93.0 Lymphocytes % 1.6 Monocytes % 3.5 Eosinophils % 0.0 Basophils % 0.4 Neutrophils # 19.3 H Lymphocytes # 0.3 L Monocytes # 0.7 Eosinophils # 0.0 Basophils # 0.1 Nucleated RBCs/100 WBC 0.5 H Reactive Lymphocytes Present A Toxic Granulation Present A Platelet Estimate Normal ABG pH ABG pCO2 ABG pO2 ABG HCO3 ABG Total CO2 ABG O2 Saturation ABG Base Excess Respiration Rate O2 Delivery Device Blood Gas Modality Inspired O2 Tidal Volume PEEP Sodium Potassium Chloride Carbon Dioxide BUN Creatinine Est GFR ( Amer) Est GFR (Non-Af Amer) BUN/Creatinine Ratio Glucose POC Glucose 186 H 185 H Calculated Osmolality Calcium Venous Ioniz Calcium Magnesium Arterial Blood Ionized Calcium 10/25/17 10/25/17 10/25/17 04:00 04:19 04:59 WBC RBC Hgb Hct MCV MCH MCHC RDW Plt Count MPV Immature Gran % Seg Neutrophils % Lymphocytes % Monocytes % Eosinophils % Basophils % Neutrophils # Lymphocytes # Monocytes # Eosinophils # Basophils # Nucleated RBCs/100 WBC Reactive Lymphocytes Toxic Granulation Platelet Estimate ABG pH ABG pCO2 ABG pO2 ABG HCO3 ABG Total CO2 ABG O2 Saturation ABG Base Excess Respiration Rate O2 Delivery Device Blood Gas Modality Inspired O2 Tidal Volume PEEP Sodium 145 Potassium 3.8 Chloride 109 H Carbon Dioxide 29 BUN 40 H Creatinine 0.92 Est GFR ( Amer) > 60 Est GFR (Non-Af Amer) > 60 BUN/Creatinine Ratio 43 H Glucose 257 H POC Glucose 219 H Calculated Osmolality 319 H Calcium 8.8 Venous Ioniz Calcium Magnesium 1.8 Arterial Blood Ionized Calcium 1.16 10/25/17 10/25/17 06:19 07:24 WBC RBC Hgb Hct MCV MCH MCHC RDW Plt Count MPV Immature Gran % Seg Neutrophils % Lymphocytes % Monocytes % Eosinophils % Basophils % Neutrophils # Lymphocytes # Monocytes # Eosinophils # Basophils # Nucleated RBCs/100 WBC Reactive Lymphocytes Toxic Granulation Platelet Estimate ABG pH 7.35 ABG pCO2 54 H ABG pO2 68 L ABG HCO3 30 H ABG Total CO2 31 H ABG O2 Saturation 92 L ABG Base Excess 3 Respiration Rate 12 O2 Delivery Device Adult Vent Blood Gas Modality ASSIST CONTROL Inspired O2 50.0 Tidal Volume 500 PEEP 5 Sodium Potassium Chloride Carbon Dioxide BUN Creatinine Est GFR ( Amer) Est GFR (Non-Af Amer) BUN/Creatinine Ratio Glucose POC Glucose 209 H Calculated Osmolality Calcium Venous Ioniz Calcium Magnesium Arterial Blood Ionized Calcium - Impressions Impressions Head CTA 10/24/17 13:23 IMPRESSION: Moderate short segment left vertebral artery origin narrowing. Otherwise no focal significant arterial narrowing in the head or neck. Chest findings as described Multifocal low-density in the brain parenchyma as described. There is less visualization of multiple sulci suggesting subtle bilateral increase in cerebral edema. Continued follow-up recommended D/ / Valente Gill / Valente Gill Interpreting Provider: Valente Gill Neck CTA 10/24/17 13:23 IMPRESSION: Moderate short segment left vertebral artery origin narrowing. Otherwise no focal significant arterial narrowing in the head or neck. Chest findings as described Multifocal low-density in the brain parenchyma as described. There is less visualization of multiple sulci suggesting subtle bilateral increase in cerebral edema. Continued follow-up recommended D/ / Valente Gill / Valente Gill Interpreting Provider: Valente Gill Chest X-Ray 10/25/17 06:00 IMPRESSION: Opacified left hemithorax compatible with previous left pneumonectomy. Perihilar lung infiltrate questioning pulmonary edema versus pneumonia. D/ / 10/25/2017 07:49:53 Antonio Harris MD / [facility] Interpreting Provider: Antonio Harris MD - ABG Interpretation ABG results: ABG ABG pH 7.35 pH Units (7.32-7.45) 10/25/17 06:19 ABG pCO2 54 mmHg (35-45) H 10/25/17 06:19 ABG pO2 68 mmHg (85-104) L 10/25/17 06:19 ABG O2 Saturation 92 % (95-98) L 10/25/17 06:19 PT/INR, D-dimer PT 21.3 Seconds (9.4-12.1) H 10/21/17 20:40 Consult Discharge Plan - Plan Referrals: Iris Negrete MD [Primary Care Provider] -
[2017-10-25] MEDS: Chlorhexidine Rinse 15 ML MOUTHWASH MM SCH ×2 (11:21→20:13)
[2017-10-25] MEDS: Aspirin 81 MG TAB.CHEW PO SCH (11:21)
[2017-10-25 13:35] LABS: Potassium 3.8 mEq/L (3.5-5.1)
[2017-10-25] MEDS: Dexmedetomidine HCl 400 MCG/100 ML MLS IVC SCH ×2 (20:08→23:27)
[2017-10-25] MEDS: FentaNYL (PF) 1,000 MCG in 0.9 % Sodium Chloride 80 ML IVC SCH (20:09)
--- NOTE | 2017-10-25 23:56 | Electrocardiograph Report ---
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
[2017-10-26] MEDS: MethylPREDNISolone 40 MG/ML VIAL IVP SCH ×4 (00:04→23:45)
[2017-10-26] MEDS: Piperacillin/Tazobactam 3.375 GM in 0.9 % Sodium Chloride Mini Bag 100 ML IVPB SCH ×4 (00:04→23:45)
[2017-10-26] MEDS: Lacri-Lube 3.5 GM TUBE BOTH EYES SCH ×7 (00:10→23:42)
[2017-10-26] MEDS: Insulin LISPRO 300 UNITS/3 ML VIAL SQ SCH ×7 (00:10→23:48)
--- NOTE | 2017-10-26 00:50 | Electrocardiograph Report ---
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
[2017-10-26] MEDS: Acetaminophen 325 MG TABLET PO PRN ×3 (01:19→08:09)
[2017-10-26] MEDS: Ipratropium/Albuterol Neb 3 ML IH SCH ×6 (03:24→23:18)
[2017-10-26 04:43] LABS: Hematocrit 44.1 % (37.5-50.1); Hemoglobin 14.5 g/dL (12.9-16.9); Lymphocytes % 2.4 %; Mean Corpuscular HGB Conc 32.9 g/dL (31.6-35.5); Mean Corpuscular Hemoglobin 32.3 pg (28.0-33.3); Mean Corpuscular Volume 98.2 fL (83.0-100.0); Mean Platelet Volume 10.4 fL (9.4-12.4); Monocytes % 3.4 %; Platelet Count 140 K/mcL (140-400); Red Blood Count 4.49 M/mcL (4.19-5.50); Red Cell Distribution Width 15.1 % (11.5-14.5); Segmented Neutrophils % 92.9 %
[2017-10-26 04:44] LABS: Basophils # 0.1 K/mcL (0.0-0.2); Basophils % 0.3 %; Lymphocytes # 0.6 K/mcL (0.6-4.6); Monocytes # 0.8 K/mcL (0.0-1.3); Neutrophils # 21.7 K/mcL (1.6-8.9); Nucleated Red Blood Cells 0.5 /100 WBC (0)
[2017-10-26 05:04] LABS: BUN/Creatinine Ratio 39 (6-26); Blood Urea Nitrogen 38 mg/dL (6-20); Carbon Dioxide 32 mEq/L (23-29); Chloride 110 mEq/L (98-107); Glucose 204 mg/dL (70-105); Osmolality,Calculated 317 (280-300); Potassium 3.7 mEq/L (3.5-5.1); Sodium 146 mEq/L (136-145); eGFR For African Americans > 60 (> 60); eGFR For Non-African Americans > 60 (> 60)
[2017-10-26] MEDS: Famotidine 20 MG/2 ML VIAL IVP SCH ×2 (05:10→17:11)
[2017-10-26] MEDS: *HR* Heparin 5,000 UNIT/ML VIAL SQ SCH ×3 (05:10→19:58)
[2017-10-26 06:24] LABS: Platelet Estimate Slight Decrease (Normal); Reactive Lymphocytes Present (Not Present)
[2017-10-26] MEDS: Potassium Chloride 10 MEQ in 0.9 % Sodium Chloride 100 ML IVPB PRN ×4 (06:54→09:56)
--- NOTE | 2017-10-26 07:08 | Pulmonology Progress Note ---
<Wayne Persley - Last Filed: 10/26/17 11:13> Date of Encounter: 10/26/17 Time of Encounter: 07:08 Assessment and Plan (1) Cardiac arrest Current Visit: Yes Status: Acute Unclear etiology as to provocation for cardiac arrest. Troponin at peak elevation of 1.2 on presentation likely secondary to prolonged CPR which has trended down daily. CT negative for pulmonary embolism given prior history of malignancy. Echocardiogram 10/21 with ejection fraction of 20% with diastolic dysfunction. Continue aspirin 81 mg daily. Continue telemetry. (2) Anoxic brain injury Current Visit: Yes Status: Acute Status post cardiac arrest on 10/21. CT head demonstrates edema consistent with hypoxic injury. CTA 10/24 without evidence of RIDING [employer]OD[employer] occlusion Neurology consulted. EEG 10/24: Impression: This is a severely abnormal EEG due to presence of persistent pattern resembling electrocerebral silence with no reactivity noted. Overall neurologic prognosis is poor. (3) Acute respiratory failure with hypoxia Current Visit: Yes Status: Acute Acute respiratory failure secondary to cardiac arrest. CTA negative for pulmonary embolism however concern for right lower lobe infiltrate likely aspiration given the prolonged downtime. Initially on vancomycin and Zosyn empirically. Plan to discontinue vancomycin and continue Zosyn. Sputum culture demonstrated many wbc's with few gram-positive cocci. Positive for human metapneuovirus. Blood cultures no growth to date. Continue mechanical ventilation for neurologic compromise. Failed CPAP trial after 15 minutes (4) Dysautonomia Current Visit: Yes Status: Acute Labile hemodynamics as well as fevers up to 104. Likely secondary to anoxic brain injury. Hydralazine ordered as needed with target goal of systolic blood pressure less than 180. (5) Hyperglycemia Current Visit: Yes Status: Acute Glucose greater than 200. Currently on tube feed regimen. Increase insulin sliding scale to medium corrective dose with goal glucose less than 180. (6) Lactic acidosis Current Visit: Yes Status: Acute Initial lactic acid of 7.1 likely secondary to prolonged hypoxic event from arrest. Resolved (7) DVT prophylaxis Current Visit: Yes Status: Acute Heparin 5000 units every 8 hours subcutaneous Subjective Principal diagnosis: cardiac arrest Interval history: 24 hour vitals and labs reviewed. 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 Overnight failed CPAP trial after 15 minutes on a pressure support of 15. Continued to have fevers overnight. No purposeful movements. Recent EEG reviewed by neurology which showed an overall poor brainwave activity. Family meeting yesterday where family elected to continue his current treatment and rediscuss CODE STATUS and wishes in the next few days. Objective PUL Vital signs: Last Vital Signs Temp 103.1 F H 10/26/17 05:35 Pulse 110 10/26/17 06:00 Resp 15 10/26/17 06:00 BP 118/77 10/26/17 06:00 Pulse Ox 95 10/26/17 06:00 General appearance: no acute distress, other (Intubated) Eyes: nonicteric, other (Pupils are fixed at 3 mm. Absent oculocephalic reflex. ) ENT: other (ET tube in oropharynx) Effort: other (Mechanically ventilated) Auscultation: left: other (Course breath sounds on the right. Absent breath sounds on the left) Cardiovascular: regular rate and rhythm Gastrointestinal: normoactive bowel sounds, soft, non-distended Integumentary: normal Extremities: other (Mottling of the lower extremities) Musculoskeletal: no deformities other (GCS 3T) Ventilator Settings Ventilator Settings: Ventilator Settings, Last 8 Hours Ventilator Mode CPAP Ventilator Mode CPAP Ventilator Mode VC+ Ventilator Mode VC+ Ventilator Mode VC+ Ventilator Mode VC+ Ventilator Mode VC+ Ventilator Mode VC+ Ventilator Mode VC+ Ventilator Mode VC+ Ventilator Mode VC+ Ventilator Mode VC+ Ventilator Tidal Volume 500 Setting Ventilator Tidal Volume 500 Setting Ventilator Tidal Volume 500 Setting Ventilator Tidal Volume 500 Setting Ventilator Tidal Volume 500 Setting Ventilator Tidal Volume 500 Setting Ventilator Tidal Volume 500 Setting Ventilator Tidal Volume 500 Setting Ventilator Tidal Volume 500 Setting Ventilator Tidal Volume 500 Setting Ventilator Tidal Volume 500 Setting Ventilator Respiratory Rate 12 Setting Ventilator Respiratory Rate 12 Setting Ventilator Respiratory Rate 12 Setting Ventilator Respiratory Rate 12 Setting Ventilator Respiratory Rate 12 Setting Ventilator Respiratory Rate 12 Setting Ventilator Respiratory Rate 12 Setting Ventilator Respiratory Rate 12 Setting Ventilator Respiratory Rate 12 Setting Ventilator Respiratory Rate 12 Setting Ventilator Respiratory Rate 12 Setting Actual Respiratory Rate 15 Actual Respiratory Rate 25 Actual Respiratory Rate 16 Actual Respiratory Rate 16 Actual Respiratory Rate 18 Actual Respiratory Rate 16 Actual Respiratory Rate 19 Actual Respiratory Rate 19 Actual Respiratory Rate 19 Actual Respiratory Rate 20 Actual Respiratory Rate 19 Actual Respiratory Rate 19 Positive End Expiratory 5 Pressure Positive End Expiratory 5 Pressure Positive End Expiratory 5 Pressure Positive End Expiratory 5 Pressure Positive End Expiratory 5 Pressure Positive End Expiratory 5 Pressure Positive End Expiratory 5 Pressure Positive End Expiratory 5 Pressure Positive End Expiratory 5 Pressure Positive End Expiratory 5 Pressure Positive End Expiratory 5 Pressure Positive End Expiratory 5 Pressure Peak Inspiratory Airway 21 Pressure Peak Inspiratory Airway 17 Pressure Peak Inspiratory Airway 26 Pressure Peak Inspiratory Airway 29 Pressure Peak Inspiratory Airway 29 Pressure Peak Inspiratory Airway 29 Pressure Peak Inspiratory Airway 31 Pressure Peak Inspiratory Airway 29 Pressure Peak Inspiratory Airway 29 Pressure Peak Inspiratory Airway 30 Pressure Peak Inspiratory Airway 30 Pressure Peak Inspiratory Airway 31 Pressure Results - Laboratory Findings CBC and BMP: 10/26/17 04:00 10/26/17 04:00 ABG ABG pH 7.35 pH Units (7.32-7.45) 10/25/17 06:19 ABG pCO2 54 mmHg (35-45) H 10/25/17 06:19 ABG pO2 68 mmHg (85-104) L 10/25/17 06:19 ABG O2 Saturation 92 % (95-98) L 10/25/17 06:19 PT/INR, D-dimer PT 21.3 Seconds (9.4-12.1) H 10/21/17 20:40 Abnormal lab findings: Abnormal lab results WBC 23.4 K/mcL (4.3-11.1) H 10/26/17 04:00 RDW 15.1 % (11.5-14.5) H 10/26/17 04:00 Band Neutrophils % 14.0 % (0-4) H 10/22/17 02:20 Metamyelocytes % 1.0 % (0) H 10/21/17 20:40 Neutrophils # 21.7 K/mcL (1.6-8.9) H 10/26/17 04:00 Nucleated RBCs/100 WBC 0.5 /100 WBC (0) H 10/26/17 04:00 Reactive Lymphocytes Present (Not Present) A 10/26/17 04:00 Toxic Granulation Present (Not Present) A 10/25/17 04:00 Platelet Estimate Slight Decrease (Normal) L 10/26/17 04:00 Anisocytosis 1+ (Not Present) A 10/24/17 04:00 PT 21.3 Seconds (9.4-12.1) H 10/21/17 20:40 ABG pCO2 54 mmHg (35-45) H 10/25/17 06:19 ABG pO2 68 mmHg (85-104) L 10/25/17 06:19 ABG HCO3 30 mEq/L (21-27) H 10/25/17 06:19 ABG Total CO2 31 mEq/L (20-26) H 10/25/17 06:19 ABG O2 Saturation 92 % (95-98) L 10/25/17 06:19 Sodium 146 mEq/L (136-145) H 10/26/17 04:00 Chloride 110 mEq/L (98-107) H 10/26/17 04:00 Carbon Dioxide 32 mEq/L (23-29) H 10/26/17 04:00 BUN 38 mg/dL (6-20) H 10/26/17 04:00 BUN/Creatinine Ratio 39 (6-26) H 10/26/17 04:00 Glucose 204 mg/dL (70-105) H 10/26/17 04:00 POC Glucose 180 mg/dL (70-99) H 10/26/17 04:08 Calculated Osmolality 317 (280-300) H 10/26/17 04:00 Calcium 8.0 mg/dL (8.6-10.3) L 10/26/17 04:00 Venous Ioniz Calcium 1.10 mmol/L (1.15-1.35) L 10/24/17 13:09 Direct Bilirubin 0.4 mg/dL (0.0-0.2) H 10/22/17 01:30 AST 458 Units/L (13-39) H 10/22/17 01:30 ALT 298 Units/L (7-52) H 10/22/17 01:30 Alkaline Phosphatase 117 Units/L (34-104) H 10/22/17 01:30 Troponin I 0.23 ng/mL (< 0.04) H* 10/22/17 20:00 Serum Total Protein 5.9 g/dL (6.4-8.9) L 10/22/17 01:30 Albumin 3.1 g/dL (3.5-5.7) L 10/22/17 01:30 HDL Cholesterol 39 mg/dL (40-59) L 10/22/17 01:30 Vancomycin Trough 26 mcg/mL (5-10) H 10/23/17 04:05 Human Metapneumovir PCR DETECTED (Not Detect) A 10/22/17 01:20 - Microbiology Findings Microbiology Findings: Microbiology, Last 48 Hours 10/23/17 22:50 Urine Culture - Final Urine,[place] No growth. 10/23/17 18:41 Blood Culture - Preliminary Peripheral Venipuncture No growth. 10/23/17 18:29 Blood Culture - Preliminary Peripheral Venipuncture No growth. 10/22/17 01:35 Urine Culture - Final Urine,[place] No growth. 10/22/17 02:15 Sputum Culture - Final Sputum - Clinical Findings Intake & Output: Intake & Output 10/25/17 10/25/17 10/26/17 15:59 23:59 07:59 Intake Total 737 / 737 1429 / 1429 989 / 989 Output Total 800 / 800 1000 / 1000 650 / 650 Balance -63 / -63 429 / 429 339 / 339 Weight 75.5 kg - VTE Documentation of Mechanical Device: Intermittent pneumatic compression device Consult Discharge Plan - Plan Referrals: Iris Negrete MD [Primary Care Provider] - <Soumya Zuniga - Last Filed: 10/26/17 13:28> Date of Encounter: 10/26/17 Objective PUL Vital signs: Last Vital Signs Temp 102.9 F H 10/26/17 12:05 Pulse 98 10/26/17 13:00 Resp 15 10/26/17 13:00 BP 103/70 10/26/17 13:00 Pulse Ox 99 10/26/17 13:00 Ventilator Settings Ventilator Settings: Ventilator Settings, Last 8 Hours Ventilator Mode VC+ Ventilator Mode VC+ Ventilator Mode VC+ Ventilator Mode VC+ Ventilator Mode VC+ Ventilator Mode A/C Ventilator Mode VC+ Ventilator Mode CPAP Ventilator Mode CPAP Ventilator Tidal Volume 500 Setting Ventilator Tidal Volume 500 Setting Ventilator Tidal Volume 500 Setting Ventilator Tidal Volume 500 Setting Ventilator Tidal Volume 500 Setting Ventilator Tidal Volume 500 Setting Ventilator Tidal Volume 500 Setting Ventilator Tidal Volume 500 Setting Ventilator Respiratory Rate 12 Setting Ventilator Respiratory Rate 12 Setting Ventilator Respiratory Rate 12 Setting Ventilator Respiratory Rate 12 Setting Ventilator Respiratory Rate 12 Setting Ventilator Respiratory Rate 12 Setting Ventilator Respiratory Rate 12 Setting Ventilator Respiratory Rate 12 Setting Actual Respiratory Rate 15 Actual Respiratory Rate 15 Actual Respiratory Rate 16 Actual Respiratory Rate 16 Actual Respiratory Rate 16 Actual Respiratory Rate 15 Actual Respiratory Rate 16 Actual Respiratory Rate 15 Actual Respiratory Rate 25 Positive End Expiratory 5 Pressure Positive End Expiratory 5 Pressure Positive End Expiratory 5 Pressure Positive End Expiratory 5 Pressure Positive End Expiratory 5 Pressure Positive End Expiratory 5 Pressure Positive End Expiratory 5 Pressure Positive End Expiratory 5 Pressure Positive End Expiratory 5 Pressure Peak Inspiratory Airway 27 Pressure Peak Inspiratory Airway 27 Pressure Peak Inspiratory Airway 28 Pressure Peak Inspiratory Airway 28 Pressure Peak Inspiratory Airway 28 Pressure Peak Inspiratory Airway 29 Pressure Peak Inspiratory Airway 29 Pressure Peak Inspiratory Airway 21 Pressure Peak Inspiratory Airway 17 Pressure Results - Laboratory Findings CBC and BMP: 10/26/17 04:00 10/26/17 04:00 ABG ABG pH 7.35 pH Units (7.32-7.45) 10/25/17 06:19 ABG pCO2 54 mmHg (35-45) H 10/25/17 06:19 ABG pO2 68 mmHg (85-104) L 10/25/17 06:19 ABG O2 Saturation 92 % (95-98) L 10/25/17 06:19 PT/INR, D-dimer PT 21.3 Seconds (9.4-12.1) H 10/21/17 20:40 Abnormal lab findings: Abnormal lab results WBC 23.4 K/mcL (4.3-11.1) H 10/26/17 04:00 RDW 15.1 % (11.5-14.5) H 10/26/17 04:00 Band Neutrophils % 14.0 % (0-4) H 10/22/17 02:20 Metamyelocytes % 1.0 % (0) H 10/21/17 20:40 Neutrophils # 21.7 K/mcL (1.6-8.9) H 10/26/17 04:00 Nucleated RBCs/100 WBC 0.5 /100 WBC (0) H 10/26/17 04:00 Reactive Lymphocytes Present (Not Present) A 10/26/17 04:00 Toxic Granulation Present (Not Present) A 10/25/17 04:00 Platelet Estimate Slight Decrease (Normal) L 10/26/17 04:00 Anisocytosis 1+ (Not Present) A 10/24/17 04:00 PT 21.3 Seconds (9.4-12.1) H 10/21/17 20:40 ABG pCO2 54 mmHg (35-45) H 10/25/17 06:19 ABG pO2 68 mmHg (85-104) L 10/25/17 06:19 ABG HCO3 30 mEq/L (21-27) H 10/25/17 06:19 ABG Total CO2 31 mEq/L (20-26) H 10/25/17 06:19 ABG O2 Saturation 92 % (95-98) L 10/25/17 06:19 Sodium 146 mEq/L (136-145) H 10/26/17 04:00 Chloride 110 mEq/L (98-107) H 10/26/17 04:00 Carbon Dioxide 32 mEq/L (23-29) H 10/26/17 04:00 BUN 38 mg/dL (6-20) H 10/26/17 04:00 BUN/Creatinine Ratio 39 (6-26) H 10/26/17 04:00 Glucose 204 mg/dL (70-105) H 10/26/17 04:00 POC Glucose 203 mg/dL (70-99) H 10/26/17 11:36 Calculated Osmolality 317 (280-300) H 10/26/17 04:00 Calcium 8.0 mg/dL (8.6-10.3) L 10/26/17 04:00 Venous Ioniz Calcium 1.10 mmol/L (1.15-1.35) L 10/24/17 13:09 Direct Bilirubin 0.4 mg/dL (0.0-0.2) H 10/22/17 01:30 AST 458 Units/L (13-39) H 10/22/17 01:30 ALT 298 Units/L (7-52) H 10/22/17 01:30 Alkaline Phosphatase 117 Units/L (34-104) H 10/22/17 01:30 Troponin I 0.23 ng/mL (< 0.04) H* 10/22/17 20:00 Serum Total Protein 5.9 g/dL (6.4-8.9) L 10/22/17 01:30 Albumin 3.1 g/dL (3.5-5.7) L 10/22/17 01:30 HDL Cholesterol 39 mg/dL (40-59) L 10/22/17 01:30 Vancomycin Trough 26 mcg/mL (5-10) H 10/23/17 04:05 Human Metapneumovir PCR DETECTED (Not Detect) A 10/22/17 01:20 - Microbiology Findings Microbiology Findings: Microbiology, Last 48 Hours 10/23/17 22:50 Urine Culture - Final Urine,[place] No growth. 10/23/17 18:41 Blood Culture - Preliminary Peripheral Venipuncture No growth. 10/23/17 18:29 Blood Culture - Preliminary Peripheral Venipuncture No growth. - Clinical Findings Intake & Output: Intake & Output 10/25/17 10/26/17 10/26/17 23:59 07:59 15:59 Intake Total 1429 / 1429 1089 / 1089 1430 / 1430 Output Total 1000 / 1000 650 / 650 350 / 350 Balance 429 / 429 439 / 439 1080 / 1080 Weight 75.5 kg - Attending Attestation I examined this patient and my medical decision-making was reviewed with the Resident Physician. I agree with the documented findings, disposition and treatment plan as described except to the extent set forth below. Patient seen and examined. Labs, radiology, chart personally reviewed. Agree with resident's history and physical, assessment, plan with following comments: GARD[employer]ER: Patient does not follows commands, patient with anoxic encephalopathy and poor prognosis. Palliative care is following up with the family. It would be reasonable to at least to change CODE STATUS at this time. Pulmonary: Acceptable oxygenation and ventilation. Patient is not tolerating spontaneous breathing trial. Cardiovascular: stable GI: Nutrition per dietary and GI prophylaxis per routine Heme: DVT prophylaxis per routine ID: Fever which is most likely central in origin. Renal; urine out put and renal funtion reviewed Endorcine: blood glucose is monitored Lines: all lines checked and no evidence of infections Skin: skin care to prevent pressure ulcers per nursing routine care Poor prognosis and the waiting for the family.
--- NOTE | 2017-10-26 07:51 | Palliative Progress Note ---
Date of Encounter: 10/26/17 Time of Encounter: 07:05 - Assessment and plan (1) Anoxic brain injury Current Visit: Yes Status: Acute Assessment and plan: Appears to be severe, neurology is following. (2) Cardiac arrest Current Visit: Yes Status: Acute Assessment and plan: This is the cause of the anoxic brain injury. And, the anoxic brain injury appears to be quite severe and global in nature. Family is coming to desktop operator with this slowly. (3) Goals of care, counseling/discussion Current Visit: Yes Status: Acute Assessment and plan: Family is having a difficult time standing exactly how serious the patient's condition actually is. I think that may be starting to respond continue to talk with them at length. At this time the patient remains a full code. - Time Spent With Patient Total time spent is greater than 50% in coordination of care (as documented) at patient's floor/unit and/or counseling patient: - Subjective Interval history: Unresponsive on ventilator, fever during the night. - Constitutional Vitals: Abnormal lab results WBC 23.4 K/mcL (4.3-11.1) H 10/26/17 04:00 RDW 15.1 % (11.5-14.5) H 10/26/17 04:00 Band Neutrophils % 14.0 % (0-4) H 10/22/17 02:20 Metamyelocytes % 1.0 % (0) H 10/21/17 20:40 Neutrophils # 21.7 K/mcL (1.6-8.9) H 10/26/17 04:00 Nucleated RBCs/100 WBC 0.5 /100 WBC (0) H 10/26/17 04:00 Reactive Lymphocytes Present (Not Present) A 10/26/17 04:00 Toxic Granulation Present (Not Present) A 10/25/17 04:00 Platelet Estimate Slight Decrease (Normal) L 10/26/17 04:00 Anisocytosis 1+ (Not Present) A 10/24/17 04:00 PT 21.3 Seconds (9.4-12.1) H 10/21/17 20:40 ABG pCO2 54 mmHg (35-45) H 10/25/17 06:19 ABG pO2 68 mmHg (85-104) L 10/25/17 06:19 ABG HCO3 30 mEq/L (21-27) H 10/25/17 06:19 ABG Total CO2 31 mEq/L (20-26) H 10/25/17 06:19 ABG O2 Saturation 92 % (95-98) L 10/25/17 06:19 Sodium 146 mEq/L (136-145) H 10/26/17 04:00 Chloride 110 mEq/L (98-107) H 10/26/17 04:00 Carbon Dioxide 32 mEq/L (23-29) H 10/26/17 04:00 BUN 38 mg/dL (6-20) H 10/26/17 04:00 BUN/Creatinine Ratio 39 (6-26) H 10/26/17 04:00 Glucose 204 mg/dL (70-105) H 10/26/17 04:00 POC Glucose 180 mg/dL (70-99) H 10/26/17 04:08 Calculated Osmolality 317 (280-300) H 10/26/17 04:00 Calcium 8.0 mg/dL (8.6-10.3) L 10/26/17 04:00 Venous Ioniz Calcium 1.10 mmol/L (1.15-1.35) L 10/24/17 13:09 Direct Bilirubin 0.4 mg/dL (0.0-0.2) H 10/22/17 01:30 AST 458 Units/L (13-39) H 10/22/17 01:30 ALT 298 Units/L (7-52) H 10/22/17 01:30 Alkaline Phosphatase 117 Units/L (34-104) H 10/22/17 01:30 Troponin I 0.23 ng/mL (< 0.04) H* 10/22/17 20:00 Serum Total Protein 5.9 g/dL (6.4-8.9) L 10/22/17 01:30 Albumin 3.1 g/dL (3.5-5.7) L 10/22/17 01:30 HDL Cholesterol 39 mg/dL (40-59) L 10/22/17 01:30 Vancomycin Trough 26 mcg/mL (5-10) H 10/23/17 04:05 Human Metapneumovir PCR DETECTED (Not Detect) A 10/22/17 01:20 General appearance: Present: no acute distress - Respiratory Respiratory exam: Present: decreased breath sounds (Sedated on vent) - Cardiovascular Cardiovascular exam: Present: tachycardia - GI/Abdominal GI/Abdominal exam: Present: hypoactive bowel sounds, soft. Absent: tenderness - Extremities Exam Extremities exam: Absent: normal inspection (Mottling is noted), pedal edema, tenderness - Neurological Exam Neurological exam: Present: altered. Absent: alert - Skin Skin exam: Present: mottled (Both legs mild around the knees and the feet as well) Palliative Quality Palliative Quality: Screen for Code Status: Yes, Screen for Goals of Care: Yes, Screen for Pain: Yes, If Pain Regimen Started, Initiate Bowel Regimen: NA, Screen for Nausea/Vomitting: NA (non responsive.) Code Status: 10/21/17 17:03 Resuscitation Status: Active [RES] Routine Comment: Resuscitation Status: Full Code - Labs CBC & Chem 7: 10/26/17 04:00 10/26/17 04:00 Labs: Laboratory Results - last 24 hr 10/25/17 10/25/17 10/25/17 11:28 12:00 16:31 WBC RBC Hgb Hct MCV MCH MCHC RDW Plt Count MPV Immature Gran % Seg Neutrophils % Lymphocytes % Monocytes % Eosinophils % Basophils % Neutrophils # Lymphocytes # Monocytes # Eosinophils # Basophils # Nucleated RBCs/100 WBC Reactive Lymphocytes Platelet Estimate Sodium Potassium 3.8 Chloride Carbon Dioxide BUN Creatinine Est GFR ( Amer) Est GFR (Non-Af Amer) BUN/Creatinine Ratio Glucose POC Glucose 187 H 193 H Calculated Osmolality Calcium Magnesium 2.0 10/25/17 10/26/17 10/26/17 20:16 00:09 04:00 WBC 23.4 H RBC 4.49 Hgb 14.5 Hct 44.1 MCV 98.2 MCH 32.3 MCHC 32.9 RDW 15.1 H Plt Count 140 MPV 10.4 Immature Gran % 1.0 Seg Neutrophils % 92.9 Lymphocytes % 2.4 Monocytes % 3.4 Eosinophils % 0.0 Basophils % 0.3 Neutrophils # 21.7 H Lymphocytes # 0.6 Monocytes # 0.8 Eosinophils # 0.0 Basophils # 0.1 Nucleated RBCs/100 WBC 0.5 H Reactive Lymphocytes Present A Platelet Estimate Slight Decrease L Sodium Potassium Chloride Carbon Dioxide BUN Creatinine Est GFR ( Amer) Est GFR (Non-Af Amer) BUN/Creatinine Ratio Glucose POC Glucose 211 H 173 H Calculated Osmolality Calcium Magnesium 10/26/17 10/26/17 04:00 04:08 WBC RBC Hgb Hct MCV MCH MCHC RDW Plt Count MPV Immature Gran % Seg Neutrophils % Lymphocytes % Monocytes % Eosinophils % Basophils % Neutrophils # Lymphocytes # Monocytes # Eosinophils # Basophils # Nucleated RBCs/100 WBC Reactive Lymphocytes Platelet Estimate Sodium 146 H Potassium 3.7 Chloride 110 H Carbon Dioxide 32 H BUN 38 H Creatinine 0.98 Est GFR ( Amer) > 60 Est GFR (Non-Af Amer) > 60 BUN/Creatinine Ratio 39 H Glucose 204 H POC Glucose 180 H Calculated Osmolality 317 H Calcium 8.0 L Magnesium - Impressions Impressions Chest X-Ray 10/25/17 06:00 IMPRESSION: Opacified left hemithorax compatible with previous left pneumonectomy. Perihilar lung infiltrate questioning pulmonary edema versus pneumonia. D/ / 10/25/2017 07:49:53 Antonio Harris MD / yer Interpreting Provider: Antonio Harris MD - ABG Interpretation ABG results: ABG ABG pH 7.35 pH Units (7.32-7.45) 10/25/17 06:19 ABG pCO2 54 mmHg (35-45) H 10/25/17 06:19 ABG pO2 68 mmHg (85-104) L 10/25/17 06:19 ABG O2 Saturation 92 % (95-98) L 10/25/17 06:19 PT/INR, D-dimer PT 21.3 Seconds (9.4-12.1) H 10/21/17 20:40 Consult Discharge Plan - Plan Referrals: Iris Negrete MD [Primary Care Provider] -
[2017-10-26] MEDS: Chlorhexidine Rinse 15 ML MOUTHWASH MM SCH ×2 (08:10→19:58)
[2017-10-26] MEDS: Aspirin 81 MG TAB.CHEW PO SCH (08:10)
--- NOTE | 2017-10-26 12:17 | Neurology Progress Note ---
Date of Encounter: 10/26/17 Time of Encounter: 12:13 Assessment and Plan (1) Anoxic brain injury Current Visit: Yes Status: Acute Again the patient has remained unresponsive without sedation and is not on hypothermal protocol. he lost pupil light reflexes as well as oculocephalic reflex and also gag reflex. DTRs at the upper extremities likely the result of spinal reflex. Again neurological prognosis remains very poor. Results discussed with medical staff. Please call if any questions Subjective Principal diagnosis: cardiac arrest Interval history: Patient seen and examined. Again, patient remains unresponsive to noxious pain no spontaneous movements but he is running a fever. No seizure activity noted. Patient remained on mechanical ventilation, cometous status no changes from yesterday. Objective - Constitutional Vitals: Temp Pulse Resp BP Pulse Ox 102.9 F H 98 15 93/66 98 10/26/17 12:05 10/26/17 12:00 10/26/17 12:00 10/26/17 12:00 10/26/17 12:00 - Neurological Exam Sensorimotor examination: Present: other (Unable to assess due to being in coma) Motor Examination: Present: other (Flaccid paralysis all extremities. Compared to yesterday muscle diminishe throughout) Sensation intact: Present: other (Unable to assess due to coma) Posture: Present: other (None) Mental Status Examination: Present: coma Cranial nerve examination: Present: PERRL (Midline 2mm in sizes bilaterally, midline and no light reflexes can be confirmed. No spontaneous blinking), EOMI ( Oculocephalic reflex is lost), visual garcia intact (Unable to assess), corneal reflexes brisk symmetrically (No vigorous corneal reflexes bilaterally), no facial asymmetry is present, gag reflex intact (preserved) - VTE Documentation of Mechanical Device: Intermittent pneumatic compression device Results - Laboratory Findings CBC and BMP: 10/26/17 04:00 10/26/17 04:00 Abnormal lab findings: Abnormal lab results WBC 23.4 K/mcL (4.3-11.1) H 10/26/17 04:00 RDW 15.1 % (11.5-14.5) H 10/26/17 04:00 Band Neutrophils % 14.0 % (0-4) H 10/22/17 02:20 Metamyelocytes % 1.0 % (0) H 10/21/17 20:40 Neutrophils # 21.7 K/mcL (1.6-8.9) H 10/26/17 04:00 Nucleated RBCs/100 WBC 0.5 /100 WBC (0) H 10/26/17 04:00 Reactive Lymphocytes Present (Not Present) A 10/26/17 04:00 Toxic Granulation Present (Not Present) A 10/25/17 04:00 Platelet Estimate Slight Decrease (Normal) L 10/26/17 04:00 Anisocytosis 1+ (Not Present) A 10/24/17 04:00 PT 21.3 Seconds (9.4-12.1) H 10/21/17 20:40 ABG pCO2 54 mmHg (35-45) H 10/25/17 06:19 ABG pO2 68 mmHg (85-104) L 10/25/17 06:19 ABG HCO3 30 mEq/L (21-27) H 10/25/17 06:19 ABG Total CO2 31 mEq/L (20-26) H 10/25/17 06:19 ABG O2 Saturation 92 % (95-98) L 10/25/17 06:19 Sodium 146 mEq/L (136-145) H 10/26/17 04:00 Chloride 110 mEq/L (98-107) H 10/26/17 04:00 Carbon Dioxide 32 mEq/L (23-29) H 10/26/17 04:00 BUN 38 mg/dL (6-20) H 10/26/17 04:00 BUN/Creatinine Ratio 39 (6-26) H 10/26/17 04:00 Glucose 204 mg/dL (70-105) H 10/26/17 04:00 POC Glucose 203 mg/dL (70-99) H 10/26/17 11:36 Calculated Osmolality 317 (280-300) H 10/26/17 04:00 Calcium 8.0 mg/dL (8.6-10.3) L 10/26/17 04:00 Venous Ioniz Calcium 1.10 mmol/L (1.15-1.35) L 10/24/17 13:09 Direct Bilirubin 0.4 mg/dL (0.0-0.2) H 10/22/17 01:30 AST 458 Units/L (13-39) H 10/22/17 01:30 ALT 298 Units/L (7-52) H 10/22/17 01:30 Alkaline Phosphatase 117 Units/L (34-104) H 10/22/17 01:30 Troponin I 0.23 ng/mL (< 0.04) H* 10/22/17 20:00 Serum Total Protein 5.9 g/dL (6.4-8.9) L 10/22/17 01:30 Albumin 3.1 g/dL (3.5-5.7) L 10/22/17 01:30 HDL Cholesterol 39 mg/dL (40-59) L 10/22/17 01:30 Vancomycin Trough 26 mcg/mL (5-10) H 10/23/17 04:05 Human Metapneumovir PCR DETECTED (Not Detect) A 10/22/17 01:20 Consult Discharge Plan - Plan Referrals: Iris Negrete MD [Primary Care Provider] -
[2017-10-26] MEDS ORDERED: Sennosides 8.6 MG TABLET PO PRN (16:23)
[2017-10-27] MEDS: Ipratropium/Albuterol Neb 3 ML IH SCH ×6 (03:22→23:32)
[2017-10-27] MEDS: Acetaminophen 325 MG TABLET PO PRN ×2 (03:30→20:25)
[2017-10-27] MEDS: Lacri-Lube 3.5 GM TUBE BOTH EYES SCH ×6 (03:31→23:27)
[2017-10-27] MEDS: *HR* Heparin 5,000 UNIT/ML VIAL SQ SCH ×3 (05:13→20:26)
[2017-10-27] MEDS: Famotidine 20 MG/2 ML VIAL IVP SCH ×2 (05:13→18:56)
[2017-10-27] MEDS: Insulin LISPRO 300 UNITS/3 ML VIAL SQ SCH ×5 (05:14→20:26)
[2017-10-27 05:27] LABS: Hematocrit 42.7 % (37.5-50.1); Hemoglobin 13.9 g/dL (12.9-16.9); Mean Corpuscular HGB Conc 32.6 g/dL (31.6-35.5); Mean Corpuscular Hemoglobin 31.9 pg (28.0-33.3); Mean Corpuscular Volume 97.9 fL (83.0-100.0); Mean Platelet Volume 10.8 fL (9.4-12.4); Nucleated Red Blood Cells 0.7 /100 WBC (0); Platelet Count 111 K/mcL (140-400); Red Blood Count 4.36 M/mcL (4.19-5.50); Red Cell Distribution Width 15.4 % (11.5-14.5)
[2017-10-27 05:49] LABS: Lymphocytes # 0.6 K/mcL (0.6-4.6); Monocytes # 0.6 K/mcL (0.0-1.3); Neutrophils # 30.4 K/mcL (1.6-8.9); Platelet Estimate Decreased (Normal); Smudge Cells Present (Not Present)
--- NOTE | 2017-10-27 06:52 | Pulmonology Progress Note ---
<Marissa Zunigakody M - Last Filed: 10/27/17 09:06> Date of Encounter: 10/27/17 Objective PUL Vital signs: Last Vital Signs Temp 101.9 F H 10/27/17 08:00 Pulse 104 10/27/17 08:00 Resp 21 10/27/17 08:00 BP 107/71 10/27/17 08:00 Pulse Ox 99 10/27/17 08:00 Ventilator Settings Ventilator Settings: Ventilator Settings, Last 8 Hours Ventilator Mode VC+ Ventilator Mode VC+ Ventilator Mode VC+ Ventilator Mode VC+ Ventilator Mode VC+ Ventilator Mode VC+ Ventilator Mode VC+ Ventilator Mode VC+ Ventilator Mode VC+ Ventilator Mode VC+ Ventilator Mode VC+ Ventilator Tidal Volume 500 Setting Ventilator Tidal Volume 500 Setting Ventilator Tidal Volume 500 Setting Ventilator Tidal Volume 500 Setting Ventilator Tidal Volume 500 Setting Ventilator Tidal Volume 500 Setting Ventilator Tidal Volume 500 Setting Ventilator Tidal Volume 500 Setting Ventilator Respiratory Rate 12 Setting Ventilator Respiratory Rate 12 Setting Ventilator Respiratory Rate 12 Setting Ventilator Respiratory Rate 12 Setting Ventilator Respiratory Rate 12 Setting Ventilator Respiratory Rate 12 Setting Ventilator Respiratory Rate 12 Setting Ventilator Respiratory Rate 12 Setting Ventilator Respiratory Rate 12 Setting Actual Respiratory Rate 21 Actual Respiratory Rate 22 Actual Respiratory Rate 18 Actual Respiratory Rate 27 Actual Respiratory Rate 20 Actual Respiratory Rate 17 Positive End Expiratory 5 Pressure Positive End Expiratory 5 Pressure Positive End Expiratory 5 Pressure Positive End Expiratory 5 Pressure Positive End Expiratory 5 Pressure Positive End Expiratory 5 Pressure Positive End Expiratory 5 Pressure Positive End Expiratory 5 Pressure Positive End Expiratory 5 Pressure Positive End Expiratory 5 Pressure Positive End Expiratory 5 Pressure Peak Inspiratory Airway 18 Pressure Peak Inspiratory Airway 18 Pressure Peak Inspiratory Airway 27 Pressure Peak Inspiratory Airway 25 Pressure Results - Laboratory Findings CBC and BMP: 10/27/17 05:20 10/27/17 07:03 ABG ABG pH 7.35 pH Units (7.32-7.45) 10/25/17 06:19 ABG pCO2 54 mmHg (35-45) H 10/25/17 06:19 ABG pO2 68 mmHg (85-104) L 10/25/17 06:19 ABG O2 Saturation 92 % (95-98) L 10/25/17 06:19 PT/INR, D-dimer PT 21.3 Seconds (9.4-12.1) H 10/21/17 20:40 Abnormal lab findings: Abnormal lab results WBC 31.7 K/mcL (4.3-11.1) H* 10/27/17 05:20 RDW 15.4 % (11.5-14.5) H 10/27/17 05:20 Plt Count 111 K/mcL (140-400) L 10/27/17 05:20 Band Neutrophils % 14.0 % (0-4) H 10/22/17 02:20 Metamyelocytes % 1.0 % (0) H 10/21/17 20:40 Neutrophils # 30.4 K/mcL (1.6-8.9) H 10/27/17 05:20 Nucleated RBCs/100 WBC 0.7 /100 WBC (0) H 10/27/17 05:20 Reactive Lymphocytes Present (Not Present) A 10/26/17 04:00 Smudge Cells Present (Not Present) A 10/27/17 05:20 Toxic Granulation Present (Not Present) A 10/25/17 04:00 Platelet Estimate Decreased (Normal) L 10/27/17 05:20 Anisocytosis 1+ (Not Present) A 10/24/17 04:00 PT 21.3 Seconds (9.4-12.1) H 10/21/17 20:40 ABG pCO2 54 mmHg (35-45) H 10/25/17 06:19 ABG pO2 68 mmHg (85-104) L 10/25/17 06:19 ABG HCO3 30 mEq/L (21-27) H 10/25/17 06:19 ABG Total CO2 31 mEq/L (20-26) H 10/25/17 06:19 ABG O2 Saturation 92 % (95-98) L 10/25/17 06:19 BUN 60 mg/dL (6-20) H 10/27/17 07:03 Creatinine 1.53 mg/dL (0.70-1.30) H 10/27/17 07:03 Est GFR ( Amer) 57 (> 60) L 10/27/17 07:03 Est GFR (Non-Af Amer) 47 (> 60) L 10/27/17 07:03 BUN/Creatinine Ratio 39 (6-26) H 10/27/17 07:03 Glucose 224 mg/dL (70-105) H 10/27/17 07:03 POC Glucose 210 mg/dL (70-99) H 10/27/17 07:52 Calculated Osmolality 316 (280-300) H 10/27/17 07:03 Calcium 7.8 mg/dL (8.6-10.3) L 10/27/17 07:03 Venous Ioniz Calcium 1.10 mmol/L (1.15-1.35) L 10/24/17 13:09 Direct Bilirubin 0.4 mg/dL (0.0-0.2) H 10/22/17 01:30 AST 458 Units/L (13-39) H 10/22/17 01:30 ALT 298 Units/L (7-52) H 10/22/17 01:30 Alkaline Phosphatase 117 Units/L (34-104) H 10/22/17 01:30 Troponin I 0.23 ng/mL (< 0.04) H* 10/22/17 20:00 Serum Total Protein 5.9 g/dL (6.4-8.9) L 10/22/17 01:30 Albumin 3.1 g/dL (3.5-5.7) L 10/22/17 01:30 HDL Cholesterol 39 mg/dL (40-59) L 10/22/17 01:30 Vancomycin Trough 26 mcg/mL (5-10) H 10/23/17 04:05 Human Metapneumovir PCR DETECTED (Not Detect) A 10/22/17 01:20 - Microbiology Findings Microbiology Findings: Microbiology, Last 48 Hours 10/23/17 22:50 Urine Culture - Final Urine,[place] No growth. 10/23/17 18:41 Blood Culture - Preliminary Peripheral Venipuncture No growth. 10/23/17 18:29 Blood Culture - Preliminary Peripheral Venipuncture No growth. - Clinical Findings Intake & Output: Intake & Output 10/26/17 10/27/17 10/27/17 23:59 07:59 15:59 Intake Total 703 / 703 1546 / 1546 Output Total 250 / 250 350 / 350 Balance 453 / 453 1196 / 1196 Weight 58.8 kg Consult Discharge Plan - Plan Referrals: Iris Negrete MD [Primary Care Provider] - - Attending Attestation I examined this patient and my medical decision-making was reviewed with the Resident Physician. I agree with the documented findings, disposition and treatment plan as described except to the extent set forth below. Patient seen and examined. Labs, radiology, chart personally reviewed. Agree with resident's history and physical, assessment, plan with following comments: [employer]: Patient does not follows commands, patient with anoxic encephalopathy and poor prognosis still waiting for the family to make a decision Pulmonary: Acceptable oxygenation and ventilation continue CPAP trial as much as tolerated Cardiovascular: stable GI: Nutrition per dietary and GI prophylaxis per routine Heme: DVT prophylaxis per routine ID: Continue antibiotics and plan to de-escalation area to fever which I think it is central in origin and empiric antibiotics. Renal; urine out put and renal funtion reviewed Endorcine: blood glucose is monitored Lines: all lines checked and no evidence of infections Skin: skin care to prevent pressure ulcers per nursing routine care <Wayne Presley - Last Filed: 10/27/17 10:36> Date of Encounter: 10/27/17 Time of Encounter: 07:31 Assessment and Plan (1) Cardiac arrest Current Visit: Yes Status: Acute Unclear etiology as to provocation for cardiac arrest. Troponin at peak elevation of 1.2 on presentation likely secondary to prolonged CPR which has trended down daily. CT negative for pulmonary embolism given prior history of malignancy. Echocardiogram 10/21 with ejection fraction of 20% with diastolic dysfunction. Continue aspirin 81 mg daily. Continue telemetry. (2) Anoxic brain injury Current Visit: Yes Status: Acute Status post cardiac arrest on 10/21. CT head demonstrates edema consistent with hypoxic injury. CTA 10/24 without evidence of RECRUITING COORDINATOR occlusion Neurology consulted. EEG 10/24: Impression: This is a severely abnormal EEG due to presence of persistent pattern resembling electrocerebral silence with no reactivity noted. Overall neurologic prognosis is poor. (3) Acute respiratory failure with hypoxia Current Visit: Yes Status: Acute Acute respiratory failure secondary to cardiac arrest. CTA negative for pulmonary embolism however concern for right lower lobe infiltrate likely aspiration given the prolonged downtime. Initially on vancomycin and Zosyn empirically. Remains on Zosyn for 10 day course. Sputum culture demonstrated many wbc's with few gram-positive cocci. Positive for human metapneuovirus. Blood cultures no growth to date. Continue mechanical ventilation for neurologic compromise. Continue CPAP support as tolerated. (4) Dysautonomia Current Visit: Yes Status: Acute Labile hemodynamics as well as fevers up to 104. Likely secondary to anoxic brain injury. Hydralazine ordered as needed with target goal of systolic blood pressure less than 180. Continue Tylenol as well as addition of ibuprofen for antipyretics as well as ice packing for fever control. (5) Hyperglycemia Current Visit: Yes Status: Acute Currently on tube feed regimen. Increase to High corrective dose sliding scale insulin (6) Lactic acidosis Current Visit: Yes Status: Resolved Initial lactic acid of 7.1 likely secondary to prolonged hypoxic event from arrest. 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 10/27/17: Noted to have a worsening leukocytosis overnight as well as continued fevers despite cooling protocols. No change in mental status. Objective PUL Vital signs: Last Vital Signs Temp 101.7 F H 10/27/17 04:50 Pulse 105 10/27/17 06:00 Resp 27 10/27/17 06:05 BP 121/76 10/27/17 06:05 Pulse Ox 99 10/27/17 06:05 General appearance: no acute distress Eyes: nonicteric, other (Chemosis of the bilateral eyes) ENT: other (ET tube in place) Effort: other (Mechanically ventilated) Auscultation: left: other (Absent breath sounds on the left), right: rhonchi Cardiovascular: regular rate and rhythm Gastrointestinal: hypoactive bowel sounds, soft, non-distended Integumentary: normal Extremities: edema (Peripheral edema in the upper and lower extremities bilaterally.), other (Lower extremities are cool to the touch.) Musculoskeletal: no deformities other (GCS 3T) Ventilator Settings Ventilator Settings: Ventilator Settings, Last 8 Hours Ventilator Mode VC+ Ventilator Mode VC+ Ventilator Mode VC+ Ventilator Mode VC+ Ventilator Mode VC+ Ventilator Mode VC+ Ventilator Mode VC+ Ventilator Mode VC+ Ventilator Mode VC+ Ventilator Mode VC+ Ventilator Mode VC+ Ventilator Mode VC+ Ventilator Tidal Volume 500 Setting Ventilator Tidal Volume 500 Setting Ventilator Tidal Volume 500 Setting Ventilator Tidal Volume 500 Setting Ventilator Tidal Volume 500 Setting Ventilator Tidal Volume 500 Setting Ventilator Tidal Volume 500 Setting Ventilator Tidal Volume 500 Setting Ventilator Tidal Volume 500 Setting Ventilator Tidal Volume 500 Setting Ventilator Tidal Volume 500 Setting Ventilator Tidal Volume 500 Setting Ventilator Respiratory Rate 12 Setting Ventilator Respiratory Rate 12 Setting Ventilator Respiratory Rate 12 Setting Ventilator Respiratory Rate 12 Setting Ventilator Respiratory Rate 12 Setting Ventilator Respiratory Rate 12 Setting Ventilator Respiratory Rate 12 Setting Ventilator Respiratory Rate 12 Setting Ventilator Respiratory Rate 12 Setting Ventilator Respiratory Rate 12 Setting Ventilator Respiratory Rate 12 Setting Actual Respiratory Rate 27 Actual Respiratory Rate 20 Actual Respiratory Rate 17 Actual Respiratory Rate 23 Positive End Expiratory 5 Pressure Positive End Expiratory 5 Pressure Positive End Expiratory 5 Pressure Positive End Expiratory 5 Pressure Positive End Expiratory 5 Pressure Positive End Expiratory 5 Pressure Positive End Expiratory 5 Pressure Positive End Expiratory 5 Pressure Positive End Expiratory 5 Pressure Positive End Expiratory 5 Pressure Positive End Expiratory 5 Pressure Positive End Expiratory 5 Pressure Peak Inspiratory Airway 18 Pressure Peak Inspiratory Airway 27 Pressure Peak Inspiratory Airway 25 Pressure Peak Inspiratory Airway 27 Pressure Results - Laboratory Findings CBC and BMP: 10/27/17 05:20 10/27/17 07:03 ABG ABG pH 7.35 pH Units (7.32-7.45) 10/25/17 06:19 ABG pCO2 54 mmHg (35-45) H 10/25/17 06:19 ABG pO2 68 mmHg (85-104) L 10/25/17 06:19 ABG O2 Saturation 92 % (95-98) L 10/25/17 06:19 PT/INR, D-dimer PT 21.3 Seconds (9.4-12.1) H 10/21/17 20:40 Abnormal lab findings: Abnormal lab results WBC 31.7 K/mcL (4.3-11.1) H* 10/27/17 05:20 RDW 15.4 % (11.5-14.5) H 10/27/17 05:20 Plt Count 111 K/mcL (140-400) L 10/27/17 05:20 Band Neutrophils % 14.0 % (0-4) H 10/22/17 02:20 Metamyelocytes % 1.0 % (0) H 10/21/17 20:40 Neutrophils # 30.4 K/mcL (1.6-8.9) H 10/27/17 05:20 Nucleated RBCs/100 WBC 0.7 /100 WBC (0) H 10/27/17 05:20 Reactive Lymphocytes Present (Not Present) A 10/26/17 04:00 Smudge Cells Present (Not Present) A 10/27/17 05:20 Toxic Granulation Present (Not Present) A 10/25/17 04:00 Platelet Estimate Decreased (Normal) L 10/27/17 05:20 Anisocytosis 1+ (Not Present) A 10/24/17 04:00 PT 21.3 Seconds (9.4-12.1) H 10/21/17 20:40 ABG pCO2 54 mmHg (35-45) H 10/25/17 06:19 ABG pO2 68 mmHg (85-104) L 10/25/17 06:19 ABG HCO3 30 mEq/L (21-27) H 10/25/17 06:19 ABG Total CO2 31 mEq/L (20-26) H 10/25/17 06:19 ABG O2 Saturation 92 % (95-98) L 10/25/17 06:19 Sodium 146 mEq/L (136-145) H 10/26/17 04:00 Chloride 110 mEq/L (98-107) H 10/26/17 04:00 Carbon Dioxide 32 mEq/L (23-29) H 10/26/17 04:00 BUN 38 mg/dL (6-20) H 10/26/17 04:00 BUN/Creatinine Ratio 39 (6-26) H 10/26/17 04:00 Glucose 204 mg/dL (70-105) H 10/26/17 04:00 POC Glucose 232 mg/dL (70-99) H 10/27/17 04:32 Calculated Osmolality 317 (280-300) H 10/26/17 04:00 Calcium 8.0 mg/dL (8.6-10.3) L 10/26/17 04:00 Venous Ioniz Calcium 1.10 mmol/L (1.15-1.35) L 10/24/17 13:09 Direct Bilirubin 0.4 mg/dL (0.0-0.2) H 10/22/17 01:30 AST 458 Units/L (13-39) H 10/22/17 01:30 ALT 298 Units/L (7-52) H 10/22/17 01:30 Alkaline Phosphatase 117 Units/L (34-104) H 10/22/17 01:30 Troponin I 0.23 ng/mL (< 0.04) H* 10/22/17 20:00 Serum Total Protein 5.9 g/dL (6.4-8.9) L 10/22/17 01:30 Albumin 3.1 g/dL (3.5-5.7) L 10/22/17 01:30 HDL Cholesterol 39 mg/dL (40-59) L 10/22/17 01:30 Vancomycin Trough 26 mcg/mL (5-10) H 10/23/17 04:05 Human Metapneumovir PCR DETECTED (Not Detect) A 10/22/17 01:20 - Microbiology Findings Microbiology Findings: Microbiology, Last 48 Hours 10/23/17 22:50 Urine Culture - Final Urine,[place] No growth. 10/23/17 18:41 Blood Culture - Preliminary Peripheral Venipuncture No growth. 10/23/17 18:29 Blood Culture - Preliminary Peripheral Venipuncture No growth. - Clinical Findings Intake & Output: Intake & Output 10/26/17 10/26/17 10/27/17 15:59 23:59 07:59 Intake Total 2231 / 2231 703 / 703 998 / 998 Output Total 350 / 350 250 / 250 200 / 200 Balance 1881 / 1881 453 / 453 798 / 798 Weight 58.8 kg - VTE Documentation of Mechanical Device: Intermittent pneumatic compression device
[2017-10-27 07:43] LABS: Calcium 7.8 mg/dL (8.6-10.3); Potassium 4.8 mEq/L (3.5-5.1)
[2017-10-27] MEDS: Chlorhexidine Rinse 15 ML MOUTHWASH MM SCH ×2 (08:01→20:26)
[2017-10-27] MEDS: Aspirin 81 MG TAB.CHEW PO SCH (08:01)
[2017-10-27] MEDS: Piperacillin/Tazobactam 3.375 GM in 0.9 % Sodium Chloride Mini Bag 100 ML IVPB SCH ×2 (08:01→15:11)
[2017-10-27] MEDS: MethylPREDNISolone 40 MG/ML VIAL IVP SCH ×2 (08:01→15:11)
--- NOTE | 2017-10-27 09:05 | Palliative Progress Note ---
Date of Encounter: 10/27/17 Time of Encounter: 08:45 - Assessment and plan (1) Anoxic brain injury Current Visit: Yes Status: Acute Assessment and plan: Patient's neurology overall prognosis remains poor. Patient remains non- reactive. Per previously known family wishes, continue current treatment plan. Plan to contact family today. (2) Acute respiratory failure with hypoxia Current Visit: Yes Status: Acute Assessment and plan: Patient remains ventilator dependent. Patient continues to fail CPAP trials. Continue Duonebs and ventilator management. (3) Non-small cell lung cancer Current Visit: No Status: Acute Qualifiers: Laterality: left Qualified Code(s): C34.92 - Malignant neoplasm of unspecified part of left bronchus or lung (4) Goals of care, counseling/discussion Current Visit: Yes Status: Acute Assessment and plan: Meeting with patient's today in 2A42. Plan to make phone calls patient's son and daughter to arrange family meeting for continued goals of care discussion. 0915: Met with patient's in room 2A42 and discussed patient's current status including lab values, prognosis, patient's physical assessment changes since yesterday, and code status. Patient's continues to retain wishes for aggressive therapy and wishes to have Palliative care have another family meeting with patient's son and daughter at the earliest convenience at patient' s bedside to discuss continued goals of care. CODE STATUS confirmed as FULL CODE. 1020: Called and left Voice Messages for both Erickson and Polly to return phone calls to arrange for family meeting. 1300: Spoke with Polly, patient's daughter on the phone, arranged for family meeting tomorrow, 10/28/17, for update of current clinical status and goals of care evaluation. (5) Leukocytosis Current Visit: Yes Status: Acute Assessment and plan: WBC count increased to 31.7, Neutrophils increased to 30.4. Patient remains febrile at 101.9F [place]. Patient currently on Zosyn day 12/25, continue. - Time Spent With Patient Total time spent is greater than 50% in coordination of care (as documented) at patient's floor/unit and/or counseling patient: - Subjective Interval history: Patient resting quietly in bed. No family present at bedside; admitted to 2A42, will meet with her this morning. Patient remains non-reactive to stimulation, painful, verbal, or tactile; non gag reflex and no pupillary reaction. Patient remains intubated without sedation present, repetitively failing CPAP trials. Less than 10 ml Urine output noted to catheter bag. Abdomen distended and soft. Hands and feet cold to touch. - Constitutional Vitals: Abnormal lab results WBC 31.7 K/mcL (4.3-11.1) H* 10/27/17 05:20 RDW 15.4 % (11.5-14.5) H 10/27/17 05:20 Plt Count 111 K/mcL (140-400) L 10/27/17 05:20 Band Neutrophils % 14.0 % (0-4) H 10/22/17 02:20 Metamyelocytes % 1.0 % (0) H 10/21/17 20:40 Neutrophils # 30.4 K/mcL (1.6-8.9) H 10/27/17 05:20 Nucleated RBCs/100 WBC 0.7 /100 WBC (0) H 10/27/17 05:20 Reactive Lymphocytes Present (Not Present) A 10/26/17 04:00 Smudge Cells Present (Not Present) A 10/27/17 05:20 Toxic Granulation Present (Not Present) A 10/25/17 04:00 Platelet Estimate Decreased (Normal) L 10/27/17 05:20 Anisocytosis 1+ (Not Present) A 10/24/17 04:00 PT 21.3 Seconds (9.4-12.1) H 10/21/17 20:40 ABG pCO2 54 mmHg (35-45) H 10/25/17 06:19 ABG pO2 68 mmHg (85-104) L 10/25/17 06:19 ABG HCO3 30 mEq/L (21-27) H 10/25/17 06:19 ABG Total CO2 31 mEq/L (20-26) H 10/25/17 06:19 ABG O2 Saturation 92 % (95-98) L 10/25/17 06:19 BUN 60 mg/dL (6-20) H 10/27/17 07:03 Creatinine 1.53 mg/dL (0.70-1.30) H 10/27/17 07:03 Est GFR ( Amer) 57 (> 60) L 10/27/17 07:03 Est GFR (Non-Af Amer) 47 (> 60) L 10/27/17 07:03 BUN/Creatinine Ratio 39 (6-26) H 10/27/17 07:03 Glucose 224 mg/dL (70-105) H 10/27/17 07:03 POC Glucose 210 mg/dL (70-99) H 10/27/17 07:52 Calculated Osmolality 316 (280-300) H 10/27/17 07:03 Calcium 7.8 mg/dL (8.6-10.3) L 10/27/17 07:03 Venous Ioniz Calcium 1.10 mmol/L (1.15-1.35) L 10/24/17 13:09 Direct Bilirubin 0.4 mg/dL (0.0-0.2) H 10/22/17 01:30 AST 458 Units/L (13-39) H 10/22/17 01:30 ALT 298 Units/L (7-52) H 10/22/17 01:30 Alkaline Phosphatase 117 Units/L (34-104) H 10/22/17 01:30 Troponin I 0.23 ng/mL (< 0.04) H* 10/22/17 20:00 Serum Total Protein 5.9 g/dL (6.4-8.9) L 10/22/17 01:30 Albumin 3.1 g/dL (3.5-5.7) L 10/22/17 01:30 HDL Cholesterol 39 mg/dL (40-59) L 10/22/17 01:30 Vancomycin Trough 26 mcg/mL (5-10) H 10/23/17 04:05 Human Metapneumovir PCR DETECTED (Not Detect) A 10/22/17 01:20 General appearance: Present: no acute distress - Head Head exam: Present: atraumatic, normal inspection - Expanded Head Exam Head exam: Absent: general tenderness - Eye Eye exam: Absent: periorbital swelling, periorbital tenderness, PERRL Pupils: Present: fixed. Absent: normal accommodation, PERRL - ENT ENT exam: Present: mucous membranes moist, normal external ear exam - Expanded ENT Exam Mouth exam: Present: moist. Absent: drooling - Neck Neck exam: Present: normal inspection. Absent: tenderness - Respiratory Respiratory exam: Present: rhonchi. Absent: accessory muscle use Additional comments: To right lung. Left lung removal by history. - Cardiovascular Cardiovascular exam: Present: +S1, +S2 - Expanded Cardiovascular Exam Peripheral pulses: 0: Radial (L), Radial (R), Dorsalis Pedis (L) PM, Dorsalis Pedis (R) PM, 2+: Femoral (L) PM, Femoral (R) PM - GI/Abdominal GI/Abdominal exam: Present: distended, hypoactive bowel sounds, soft - Rectal Rectal exam: Present: deferred - Extremities Exam Extremities exam: Absent: normal capillary refill, normal inspection - Expanded Upper Extremity Exam General: Absent: normal inspection (axial pulse presents only.) Elbow exam: Present: swelling Vascular: Absent: normal capillary refill, radial pulse, ulnar pulse - Expanded Lower Extremity Exam Lower leg exam: Absent: normal inspection (cold to touch and mottling present.) - Neurological Exam Neurological exam: Present: altered - Expanded Neurological Exam Neurological exam: Present: total aphasia Patient oriented to: Absent: person, place, time Coma Scale Eye Opening: None Coma Scale Motor Response: None Coma Scale Verbal Response: None Coma Scale Total: 3 - Psychiatric Psychiatric exam: Present: flat affect - Skin Skin exam: Present: cyanosis, dry, mottled Palliative Quality Palliative Quality: Screen for Code Status: Yes, Screen for Goals of Care: Yes, Screen for Pain: Yes, If Pain Regimen Started, Initiate Bowel Regimen: NA, Screen for Nausea/Vomitting: NA (non responsive.) Code Status: 10/21/17 17:03 Resuscitation Status: Active [RES] Routine Comment: Resuscitation Status: Full Code - Labs CBC & Chem 7: 10/27/17 05:20 10/27/17 07:03 Labs: Laboratory Results - last 24 hr 10/26/17 10/26/17 10/26/17 11:36 15:31 20:01 WBC RBC Hgb Hct MCV MCH MCHC RDW Plt Count MPV Seg Neutrophils % Lymphocytes % Monocytes % Neutrophils # Lymphocytes # Monocytes # Nucleated RBCs/100 WBC Smudge Cells Platelet Estimate Sodium Potassium Chloride Carbon Dioxide BUN Creatinine Est GFR ( Amer) Est GFR (Non-Af Amer) BUN/Creatinine Ratio Glucose POC Glucose 203 H 217 H 244 H Calculated Osmolality Calcium Specimen Rejected 10/26/17 10/27/17 10/27/17 23:47 04:32 05:20 WBC 31.7 H* RBC 4.36 Hgb 13.9 Hct 42.7 MCV 97.9 MCH 31.9 MCHC 32.6 RDW 15.4 H Plt Count 111 L MPV 10.8 Seg Neutrophils % 96.0 Lymphocytes % 2.0 Monocytes % 2.0 Neutrophils # 30.4 H Lymphocytes # 0.6 Monocytes # 0.6 Nucleated RBCs/100 WBC 0.7 H Smudge Cells Present A Platelet Estimate Decreased L Sodium Potassium Chloride Carbon Dioxide BUN Creatinine Est GFR ( Amer) Est GFR (Non-Af Amer) BUN/Creatinine Ratio Glucose POC Glucose 260 H 232 H Calculated Osmolality Calcium Specimen Rejected 10/27/17 10/27/17 10/27/17 05:20 07:03 07:52 WBC RBC Hgb Hct MCV MCH MCHC RDW Plt Count MPV Seg Neutrophils % Lymphocytes % Monocytes % Neutrophils # Lymphocytes # Monocytes # Nucleated RBCs/100 WBC Smudge Cells Platelet Estimate Sodium 141 Potassium 4.8 Chloride 106 Carbon Dioxide 27 BUN 60 H Creatinine 1.53 H Est GFR ( Amer) 57 L Est GFR (Non-Af Amer) 47 L BUN/Creatinine Ratio 39 H Glucose 224 H POC Glucose 210 H Calculated Osmolality 316 H Calcium 7.8 L Specimen Rejected Hemolyzed - ABG Interpretation ABG results: ABG ABG pH 7.35 pH Units (7.32-7.45) 10/25/17 06:19 ABG pCO2 54 mmHg (35-45) H 10/25/17 06:19 ABG pO2 68 mmHg (85-104) L 10/25/17 06:19 ABG O2 Saturation 92 % (95-98) L 10/25/17 06:19 PT/INR, D-dimer PT 21.3 Seconds (9.4-12.1) H 10/21/17 20:40 Consult Discharge Plan - Plan Referrals: Iris Negrete MD [Primary Care Provider] -
[2017-10-27] MEDS: Sennosides/Docusate Sodium TABLET PO SCH ×2 (11:54→20:26)
[2017-10-28] MEDS: Piperacillin/Tazobactam 3.375 GM in 0.9 % Sodium Chloride Mini Bag 100 ML IVPB SCH ×3 (00:10→15:41)
[2017-10-28] MEDS: MethylPREDNISolone 40 MG/ML VIAL IVP SCH ×2 (00:10→07:59)
[2017-10-28] MEDS: Insulin LISPRO 300 UNITS/3 ML VIAL SQ SCH ×6 (00:11→21:20)
[2017-10-28] MEDS: Ipratropium/Albuterol Neb 3 ML IH SCH ×6 (03:20→23:06)
[2017-10-28 04:48] LABS: Basophils # 0.1 K/mcL (0.0-0.2); Basophils % 0.2 %; Mean Corpuscular Hemoglobin 32.1 pg (28.0-33.3); Nucleated Red Blood Cells 0.7 /100 WBC (0)
[2017-10-28 04:50] LABS: Hematocrit 40.9 % (37.5-50.1); Hemoglobin 13.1 g/dL (12.9-16.9); Immature Granulocytes % 1.7 % (0-4); Lymphocytes # 0.3 K/mcL (0.6-4.6); Lymphocytes % 1.1 %; Mean Corpuscular Volume 100.2 fL (83.0-100.0); Mean Platelet Volume 11.3 fL (9.4-12.4); Monocytes # 0.8 K/mcL (0.0-1.3); Monocytes % 2.7 %; Neutrophils # 27.3 K/mcL (1.6-8.9); Red Blood Count 4.08 M/mcL (4.19-5.50); Red Cell Distribution Width 15.4 % (11.5-14.5); Segmented Neutrophils % 94.3 %
[2017-10-28] MEDS: Lacri-Lube 3.5 GM TUBE BOTH EYES SCH ×5 (04:51→20:05)
[2017-10-28 04:52] LABS: Platelet Count 99 K/mcL (140-400)
[2017-10-28] MEDS: *HR* Heparin 5,000 UNIT/ML VIAL SQ SCH ×3 (04:55→21:24)
[2017-10-28] MEDS: Famotidine 20 MG/2 ML VIAL IVP SCH ×2 (04:55→17:12)
[2017-10-28 05:09] LABS: Calcium 7.8 mg/dL (8.6-10.3); Potassium 5.2 mEq/L (3.5-5.1)
[2017-10-28 05:23] LABS: Platelet Estimate Decreased (Normal)
[2017-10-28 05:24] LABS: Anisocytosis 1+ (Not Present)
--- NOTE | 2017-10-28 07:43 | Pulmonology Progress Note ---
<Wayne Presley - Last Filed: 10/28/17 12:24> Date of Encounter: 10/28/17 Time of Encounter: 08:45 Assessment and Plan (1) Cardiac arrest Current Visit: Yes Status: Acute Unclear etiology as to provocation for cardiac arrest. Troponin at peak elevation of 1.2 on presentation likely secondary to prolonged CPR which has trended down daily. CT negative for pulmonary embolism given prior history of malignancy. Echocardiogram 10/21 with ejection fraction of 20% with diastolic dysfunction. Continue aspirin 81 mg daily. Continue telemetry. (2) Anoxic brain injury Current Visit: Yes Status: Acute Status post cardiac arrest on 10/21. CT head demonstrates edema consistent with hypoxic injury. CTA 10/24 without evidence of PARKING LOT ATTENDANT occlusion Neurology consulted. EEG 10/24: Impression: This is a severely abnormal EEG due to presence of persistent pattern resembling electrocerebral silence with no reactivity noted. Overall neurologic prognosis is poor. (3) Acute respiratory failure with hypoxia Current Visit: Yes Status: Acute Acute respiratory failure secondary to cardiac arrest. CTA negative for pulmonary embolism however concern for right lower lobe infiltrate likely aspiration given the prolonged downtime. Initially on vancomycin and Zosyn empirically. Remains on Zosyn for 10 day course. Sputum culture demonstrated many wbc's with few gram-positive cocci. Positive for human metapneuovirus. Blood cultures no growth to date. Continue mechanical ventilation for neurologic compromise. Continue CPAP support as tolerated. (4) Dysautonomia Current Visit: Yes Status: Acute Labile hemodynamics as well as fevers up to 104. Likely secondary to anoxic brain injury. Hydralazine ordered as needed with target goal of systolic blood pressure less than 180. Continue Tylenol as well as addition of ibuprofen for antipyretics as well as ice packing for fever control. (5) Hyperglycemia Current Visit: Yes Status: Acute Currently on tube feed regimen. Increase to High corrective dose sliding scale insulin (6) SHAYY (acute kidney injury) Current Visit: Yes Status: Acute Creatinine 2.68 from 1. Pfizer yesterday. Continue daily BMP. Patient is volume overloaded over 10 L since admission. (7) Lactic acidosis Current Visit: Yes Status: Resolved Initial lactic acid of 7.1 likely secondary to prolonged hypoxic event from arrest. 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 10/28/17: No evidence overnight. Plan for family meeting today. Objective PUL Vital signs: Last Vital Signs Temp 100.1 F H 10/28/17 03:39 Pulse 105 10/28/17 06:00 Resp 17 10/28/17 07:34 BP 104/68 10/28/17 07:34 Pulse Ox 100 10/28/17 07:34 General appearance: no acute distress, other (Intubated) ENT: other (ET tube in place) Effort: other (Mechanically ventilated) Auscultation: bilateral: other (Absent breath sounds on the left. Coarse on the right) Cardiovascular: regular rate and rhythm Gastrointestinal: soft, non-tender, non-distended Integumentary: normal Extremities: anasarca, other (Extremities are cool to the touch. Mottled in the lower extremities.) Musculoskeletal: no deformities other (GCS 3T. Absent primitive reflexes.) Ventilator Settings Ventilator Settings: Ventilator Settings, Last 8 Hours Ventilator Mode CPAP Ventilator Mode CPAP Ventilator Mode VC+ Ventilator Mode VC+ Ventilator Mode VC+ Ventilator Mode VC+ Ventilator Mode VC+ Ventilator Mode VC+ Ventilator Mode VC+ Ventilator Mode VC+ Ventilator Mode VC+ Ventilator Tidal Volume 500 Setting Ventilator Tidal Volume 500 Setting Ventilator Tidal Volume 500 Setting Ventilator Tidal Volume 500 Setting Ventilator Tidal Volume 500 Setting Ventilator Tidal Volume 500 Setting Ventilator Tidal Volume 500 Setting Ventilator Tidal Volume 500 Setting Ventilator Tidal Volume 500 Setting Ventilator Respiratory Rate 12 Setting Ventilator Respiratory Rate 12 Setting Ventilator Respiratory Rate 12 Setting Ventilator Respiratory Rate 12 Setting Ventilator Respiratory Rate 12 Setting Ventilator Respiratory Rate 12 Setting Ventilator Respiratory Rate 12 Setting Ventilator Respiratory Rate 12 Setting Ventilator Respiratory Rate 12 Setting Actual Respiratory Rate 15 Actual Respiratory Rate 20 Actual Respiratory Rate 18 Actual Respiratory Rate 16 Positive End Expiratory 5 Pressure Positive End Expiratory 5 Pressure Positive End Expiratory 5 Pressure Positive End Expiratory 5 Pressure Positive End Expiratory 5 Pressure Positive End Expiratory 5 Pressure Positive End Expiratory 5 Pressure Positive End Expiratory 5 Pressure Positive End Expiratory 5 Pressure Positive End Expiratory 5 Pressure Positive End Expiratory 5 Pressure Peak Inspiratory Airway 16 Pressure Peak Inspiratory Airway 17 Pressure Peak Inspiratory Airway 31 Pressure Peak Inspiratory Airway 27 Pressure Results - Laboratory Findings CBC and BMP: 10/28/17 04:00 10/28/17 04:00 ABG ABG pH 7.35 pH Units (7.32-7.45) 10/25/17 06:19 ABG pCO2 54 mmHg (35-45) H 10/25/17 06:19 ABG pO2 68 mmHg (85-104) L 10/25/17 06:19 ABG O2 Saturation 92 % (95-98) L 10/25/17 06:19 PT/INR, D-dimer PT 21.3 Seconds (9.4-12.1) H 10/21/17 20:40 Abnormal lab findings: Abnormal lab results WBC 28.9 K/mcL (4.3-11.1) H 10/28/17 04:00 RBC 4.08 M/mcL (4.19-5.50) L 10/28/17 04:00 MCV 100.2 fL (83.0-100.0) H 10/28/17 04:00 RDW 15.4 % (11.5-14.5) H 10/28/17 04:00 Plt Count 99 K/mcL (140-400) L 10/28/17 04:00 Band Neutrophils % 14.0 % (0-4) H 10/22/17 02:20 Metamyelocytes % 1.0 % (0) H 10/21/17 20:40 Neutrophils # 27.3 K/mcL (1.6-8.9) H 10/28/17 04:00 Lymphocytes # 0.3 K/mcL (0.6-4.6) L 10/28/17 04:00 Nucleated RBCs/100 WBC 0.7 /100 WBC (0) H 10/28/17 04:00 Reactive Lymphocytes Present (Not Present) A 10/26/17 04:00 Smudge Cells Present (Not Present) A 10/27/17 05:20 Toxic Granulation Present (Not Present) A 10/25/17 04:00 Platelet Estimate Decreased (Normal) L 10/28/17 04:00 Anisocytosis 1+ (Not Present) A 10/28/17 04:00 PT 21.3 Seconds (9.4-12.1) H 10/21/17 20:40 ABG pCO2 54 mmHg (35-45) H 10/25/17 06:19 ABG pO2 68 mmHg (85-104) L 10/25/17 06:19 ABG HCO3 30 mEq/L (21-27) H 10/25/17 06:19 ABG Total CO2 31 mEq/L (20-26) H 10/25/17 06:19 ABG O2 Saturation 92 % (95-98) L 10/25/17 06:19 Potassium 5.2 mEq/L (3.5-5.1) H 10/28/17 04:00 BUN 81 mg/dL (6-20) H 10/28/17 04:00 Creatinine 2.68 mg/dL (0.70-1.30) H 10/28/17 04:00 Est GFR ( Amer) 30 (> 60) L 10/28/17 04:00 Est GFR (Non-Af Amer) 25 (> 60) L 10/28/17 04:00 BUN/Creatinine Ratio 30 (6-26) H 10/28/17 04:00 Glucose 217 mg/dL (70-105) H 10/28/17 04:00 POC Glucose 245 mg/dL (70-99) H 10/28/17 07:24 Calculated Osmolality 319 (280-300) H 10/28/17 04:00 Lactic Acid 3.2 mmol/L (0.5-2.2) H 10/27/17 11:47 Calcium 7.8 mg/dL (8.6-10.3) L 10/28/17 04:00 Venous Ioniz Calcium 1.10 mmol/L (1.15-1.35) L 10/24/17 13:09 Direct Bilirubin 0.4 mg/dL (0.0-0.2) H 10/22/17 01:30 AST 458 Units/L (13-39) H 10/22/17 01:30 ALT 298 Units/L (7-52) H 10/22/17 01:30 Alkaline Phosphatase 117 Units/L (34-104) H 10/22/17 01:30 Troponin I 0.23 ng/mL (< 0.04) H* 10/22/17 20:00 Serum Total Protein 5.9 g/dL (6.4-8.9) L 10/22/17 01:30 Albumin 3.1 g/dL (3.5-5.7) L 10/22/17 01:30 HDL Cholesterol 39 mg/dL (40-59) L 10/22/17 01:30 Vancomycin Trough 26 mcg/mL (5-10) H 10/23/17 04:05 Human Metapneumovir PCR DETECTED (Not Detect) A 10/22/17 01:20 - Microbiology Findings Microbiology Findings: Microbiology, Last 48 Hours 10/21/17 20:40 Blood Culture - Final Peripheral Venipuncture No growth. 10/21/17 20:40 Blood Culture - Final Peripheral Venipuncture No growth. 10/23/17 22:50 Urine Culture - Final Urine,[place] No growth. - Clinical Findings Intake & Output: Intake & Output 10/27/17 10/27/17 10/28/17 15:59 23:59 07:59 Intake Total 937 / 937 1201 / 1201 716 / 716 Output Total 300 / 300 400 / 400 200 / 200 Balance 637 / 637 801 / 801 516 / 516 Weight 79.2 kg - VTE Documentation of Mechanical Device: Intermittent pneumatic compression device Consult Discharge Plan - Plan Referrals: Iris Negrete MD [Primary Care Provider] - <Soumya Zuniga - Last Filed: 10/28/17 16:30> Date of Encounter: 10/28/17 Objective PUL Vital signs: Last Vital Signs Temp 99.0 F 10/28/17 15:00 Pulse 90 10/28/17 16:00 Resp 11 10/28/17 16:00 BP 99/64 10/28/17 16:00 Pulse Ox 100 10/28/17 16:00 Ventilator Settings Ventilator Settings: Ventilator Settings, Last 8 Hours Ventilator Mode VC+ Ventilator Mode VC+ Ventilator Mode VC+ Ventilator Mode VC+ Ventilator Mode VC+ Ventilator Mode VC+ Ventilator Mode VC+ Ventilator Mode VC+ Ventilator Mode VC+ Ventilator Mode VC+ Ventilator Tidal Volume 500 Setting Ventilator Tidal Volume 500 Setting Ventilator Tidal Volume 500 Setting Ventilator Tidal Volume 500 Setting Ventilator Tidal Volume 500 Setting Ventilator Tidal Volume 500 Setting Ventilator Tidal Volume 500 Setting Ventilator Tidal Volume 500 Setting Ventilator Respiratory Rate 12 Setting Ventilator Respiratory Rate 12 Setting Ventilator Respiratory Rate 12 Setting Ventilator Respiratory Rate 12 Setting Ventilator Respiratory Rate 12 Setting Ventilator Respiratory Rate 12 Setting Ventilator Respiratory Rate 12 Setting Ventilator Respiratory Rate 12 Setting Actual Respiratory Rate 14 Actual Respiratory Rate 13 Positive End Expiratory 5 Pressure Positive End Expiratory 5 Pressure Positive End Expiratory 5 Pressure Positive End Expiratory 5 Pressure Positive End Expiratory 5 Pressure Positive End Expiratory 5 Pressure Positive End Expiratory 5 Pressure Positive End Expiratory 5 Pressure Positive End Expiratory 5 Pressure Positive End Expiratory 5 Pressure Peak Inspiratory Airway 16 Pressure Peak Inspiratory Airway 16 Pressure Results - Laboratory Findings CBC and BMP: 10/28/17 04:00 10/28/17 04:00 ABG ABG pH 7.35 pH Units (7.32-7.45) 10/25/17 06:19 ABG pCO2 54 mmHg (35-45) H 10/25/17 06:19 ABG pO2 68 mmHg (85-104) L 10/25/17 06:19 ABG O2 Saturation 92 % (95-98) L 10/25/17 06:19 PT/INR, D-dimer PT 21.3 Seconds (9.4-12.1) H 10/21/17 20:40 Abnormal lab findings: Abnormal lab results WBC 28.9 K/mcL (4.3-11.1) H 10/28/17 04:00 RBC 4.08 M/mcL (4.19-5.50) L 10/28/17 04:00 MCV 100.2 fL (83.0-100.0) H 10/28/17 04:00 RDW 15.4 % (11.5-14.5) H 10/28/17 04:00 Plt Count 99 K/mcL (140-400) L 10/28/17 04:00 Band Neutrophils % 14.0 % (0-4) H 10/22/17 02:20 Metamyelocytes % 1.0 % (0) H 10/21/17 20:40 Neutrophils # 27.3 K/mcL (1.6-8.9) H 10/28/17 04:00 Lymphocytes # 0.3 K/mcL (0.6-4.6) L 10/28/17 04:00 Nucleated RBCs/100 WBC 0.7 /100 WBC (0) H 10/28/17 04:00 Reactive Lymphocytes Present (Not Present) A 10/26/17 04:00 Smudge Cells Present (Not Present) A 10/27/17 05:20 Toxic Granulation Present (Not Present) A 10/25/17 04:00 Platelet Estimate Decreased (Normal) L 10/28/17 04:00 Anisocytosis 1+ (Not Present) A 10/28/17 04:00 PT 21.3 Seconds (9.4-12.1) H 10/21/17 20:40 ABG pCO2 54 mmHg (35-45) H 10/25/17 06:19 ABG pO2 68 mmHg (85-104) L 10/25/17 06:19 ABG HCO3 30 mEq/L (21-27) H 10/25/17 06:19 ABG Total CO2 31 mEq/L (20-26) H 10/25/17 06:19 ABG O2 Saturation 92 % (95-98) L 10/25/17 06:19 Potassium 5.2 mEq/L (3.5-5.1) H 10/28/17 04:00 BUN 81 mg/dL (6-20) H 10/28/17 04:00 Creatinine 2.68 mg/dL (0.70-1.30) H 10/28/17 04:00 Est GFR ( Amer) 30 (> 60) L 10/28/17 04:00 Est GFR (Non-Af Amer) 25 (> 60) L 10/28/17 04:00 BUN/Creatinine Ratio 30 (6-26) H 10/28/17 04:00 Glucose 217 mg/dL (70-105) H 10/28/17 04:00 POC Glucose 133 mg/dL (70-99) H 10/28/17 15:39 Calculated Osmolality 319 (280-300) H 10/28/17 04:00 Lactic Acid 3.2 mmol/L (0.5-2.2) H 10/27/17 11:47 Calcium 7.8 mg/dL (8.6-10.3) L 10/28/17 04:00 Venous Ioniz Calcium 1.10 mmol/L (1.15-1.35) L 10/24/17 13:09 Direct Bilirubin 0.4 mg/dL (0.0-0.2) H 10/22/17 01:30 AST 458 Units/L (13-39) H 10/22/17 01:30 ALT 298 Units/L (7-52) H 10/22/17 01:30 Alkaline Phosphatase 117 Units/L (34-104) H 10/22/17 01:30 Troponin I 0.23 ng/mL (< 0.04) H* 10/22/17 20:00 Serum Total Protein 5.9 g/dL (6.4-8.9) L 10/22/17 01:30 Albumin 3.1 g/dL (3.5-5.7) L 10/22/17 01:30 HDL Cholesterol 39 mg/dL (40-59) L 10/22/17 01:30 Vancomycin Trough 26 mcg/mL (5-10) H 10/23/17 04:05 Human Metapneumovir PCR DETECTED (Not Detect) A 10/22/17 01:20 - Microbiology Findings Microbiology Findings: Microbiology, Last 48 Hours 10/21/17 20:40 Blood Culture - Final Peripheral Venipuncture No growth. 10/21/17 20:40 Blood Culture - Final Peripheral Venipuncture No growth. - Clinical Findings Intake & Output: Intake & Output 10/28/17 10/28/17 10/28/17 07:59 15:59 23:59 Intake Total 1091 / 1091 500 / 500 Output Total 200 / 200 275 / 275 0 / 0 Balance 891 / 891 225 / 225 0 / 0 Weight 79.2 kg - Attending Attestation I examined this patient and my medical decision-making was reviewed with the Resident Physician. I agree with the documented findings, disposition and treatment plan as described except to the extent set forth below. Patient seen and examined. Labs, radiology, chart personally reviewed. 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 Patient will need trach, however CODE STATUS was changed appropriately and possible compassionate extubation. Cardiovascular: stable GI: Nutrition per dietary and GI prophylaxis per routine Heme: DVT prophylaxis per routine Renal; urine out put and renal funtion reviewed. Acute kidney injury Endorcine: blood glucose is monitored Lines: all lines checked and no evidence of infections Skin: skin care to prevent pressure ulcers per nursing routine care Prognosis is poor
[2017-10-28] MEDS: Aspirin 81 MG TAB.CHEW PO SCH (07:59)
[2017-10-28] MEDS: Sennosides/Docusate Sodium TABLET PO SCH ×2 (07:59→21:25)
[2017-10-28] MEDS: Chlorhexidine Rinse 15 ML MOUTHWASH MM SCH ×2 (08:24→21:25)
--- NOTE | 2017-10-28 08:52 | Palliative Progress Note ---
Date of Encounter: 10/28/17 Time of Encounter: 08:30 - Assessment and plan (1) Anoxic brain injury Current Visit: Yes Status: Acute Assessment and plan: Patient's neurology overall prognosis remains poor. Patient remains non- reactive. Family meeting set for 11 am for re-evaluation of goals of care. I spent ___ minutes face to face with the patient, of which more than 50% (___ minutes) was spent in counseling and coordination of care, including goals of care and code status. Spent time coordinating care with patient's son Erickson, patient's daughter Polly, and patient's Areli, as patient remains non- responsive. (2) Acute respiratory failure with hypoxia Current Visit: Yes Status: Acute Assessment and plan: Patient remains ventilator dependent. Patient continues to fail CPAP trials. Oxygen Saturation 100% with ventilator support at 50% FiO2. Continue Duonebs and ventilator management. (3) Non-small cell lung cancer Current Visit: No Status: Acute Qualifiers: Qualified Code(s): C34.92 - Malignant neoplasm of unspecified part of left bronchus or lung (4) Goals of care, counseling/discussion Current Visit: Yes Status: Acute Assessment and plan: Family meeting set for 11 am to discuss continued goals of care. Notified Dr. Presley and Nurse Elizabeth. 1035: Spoke with Areli Hawkins, Patient's , as she is admitted to room 2A42. Ms. Hawkins has requested that her children, Erickson and Polly, make decisions regarding goals of care for their father. She reports feeling "too weak" at this time. Nurse Corrine Durant RN, in witness to conversation. 1100: Met with family, including patient's son, Erickson, Daughter, Polly, Daughter in Law Polly, and Son in Law Rashi. Family was given options including pursuing continued aggressive therapy include Peg Tube and Tracheostomy and Comfort care with terminal extubation. Family has chosen to transition patient to comfort care CODE Status at this time; however, wishes to perform terminal extubation tomorrow, 10/29/17, to allow more family to attend. Family meeting included Dr. Garcia, Alex Spencer, and Elizabeth SALAZAR. Changed code status to DNRCC and will notify ICU team. Family questioned end of life decision making in regards to homes, recommended calling various homes for assistance as patient has no Life Insurance. Family to notify spouse. Spoke with 2A nurses who informed medical underwriter plan to hold bed on Palliative care to allow for patient's to visit him should he survive initial terminal extubation. Will order comfort meds for when family is ready for extubation. Informed family they will need to notify nursing when ready for terminal extubation. (5) Leukocytosis Current Visit: Yes Status: Acute Assessment and plan: WBC count improved, decreased to 28.9; Neutrophils improved with decrease to 27.3. Patient afebrile at 100.1F, during last assessment. Patient currently on Zosyn day 01/24, continue. - Time Spent With Patient Total time spent is greater than 50% in coordination of care (as documented) at patient's floor/unit and/or counseling patient: - Subjective Interval history: Patient resting quietly in bed. No family present at bedside; remains admitted to 2A42, family meeting planned for 11 am with patient's son, patient' s daughter, and patient's . Patient remains non-reactive to stimulation, painful, verbal, or tactile; non gag reflex and no pupillary reaction. Patient remains intubated without sedation present, repetitively failing CPAP trials; oxygen saturation 100% while mechanically ventilated with FiO2 @ 50. Less than 10 ml Urine output noted to catheter bag. Abdomen distended and soft. Feet cold to touch. Increased mottling noted to skin of bilateral upper and lower extremities. - Constitutional Vitals: Abnormal lab results WBC 28.9 K/mcL (4.3-11.1) H 10/28/17 04:00 RBC 4.08 M/mcL (4.19-5.50) L 10/28/17 04:00 MCV 100.2 fL (83.0-100.0) H 10/28/17 04:00 RDW 15.4 % (11.5-14.5) H 10/28/17 04:00 Plt Count 99 K/mcL (140-400) L 10/28/17 04:00 Band Neutrophils % 14.0 % (0-4) H 10/22/17 02:20 Metamyelocytes % 1.0 % (0) H 10/21/17 20:40 Neutrophils # 27.3 K/mcL (1.6-8.9) H 10/28/17 04:00 Lymphocytes # 0.3 K/mcL (0.6-4.6) L 10/28/17 04:00 Nucleated RBCs/100 WBC 0.7 /100 WBC (0) H 10/28/17 04:00 Reactive Lymphocytes Present (Not Present) A 10/26/17 04:00 Smudge Cells Present (Not Present) A 10/27/17 05:20 Toxic Granulation Present (Not Present) A 10/25/17 04:00 Platelet Estimate Decreased (Normal) L 10/28/17 04:00 Anisocytosis 1+ (Not Present) A 10/28/17 04:00 PT 21.3 Seconds (9.4-12.1) H 10/21/17 20:40 ABG pCO2 54 mmHg (35-45) H 10/25/17 06:19 ABG pO2 68 mmHg (85-104) L 10/25/17 06:19 ABG HCO3 30 mEq/L (21-27) H 10/25/17 06:19 ABG Total CO2 31 mEq/L (20-26) H 10/25/17 06:19 ABG O2 Saturation 92 % (95-98) L 10/25/17 06:19 Potassium 5.2 mEq/L (3.5-5.1) H 10/28/17 04:00 BUN 81 mg/dL (6-20) H 10/28/17 04:00 Creatinine 2.68 mg/dL (0.70-1.30) H 10/28/17 04:00 Est GFR ( Amer) 30 (> 60) L 10/28/17 04:00 Est GFR (Non-Af Amer) 25 (> 60) L 10/28/17 04:00 BUN/Creatinine Ratio 30 (6-26) H 10/28/17 04:00 Glucose 217 mg/dL (70-105) H 10/28/17 04:00 POC Glucose 245 mg/dL (70-99) H 10/28/17 07:24 Calculated Osmolality 319 (280-300) H 10/28/17 04:00 Lactic Acid 3.2 mmol/L (0.5-2.2) H 10/27/17 11:47 Calcium 7.8 mg/dL (8.6-10.3) L 10/28/17 04:00 Venous Ioniz Calcium 1.10 mmol/L (1.15-1.35) L 10/24/17 13:09 Direct Bilirubin 0.4 mg/dL (0.0-0.2) H 10/22/17 01:30 AST 458 Units/L (13-39) H 10/22/17 01:30 ALT 298 Units/L (7-52) H 10/22/17 01:30 Alkaline Phosphatase 117 Units/L (34-104) H 10/22/17 01:30 Troponin I 0.23 ng/mL (< 0.04) H* 10/22/17 20:00 Serum Total Protein 5.9 g/dL (6.4-8.9) L 10/22/17 01:30 Albumin 3.1 g/dL (3.5-5.7) L 10/22/17 01:30 HDL Cholesterol 39 mg/dL (40-59) L 10/22/17 01:30 Vancomycin Trough 26 mcg/mL (5-10) H 10/23/17 04:05 Human Metapneumovir PCR DETECTED (Not Detect) A 10/22/17 01:20 General appearance: Present: no acute distress - Head Head exam: Present: atraumatic, normal inspection - Eye Eye exam: Present: conjuntiva pink. Absent: normal appearance, periorbital swelling, periorbital tenderness, PERRL Pupils: Present: fixed. Absent: normal accommodation, PERRL Additional comments: scleral edema present. Pupils non-reactive to light. - Expanded Eye Exam Pupils: nonreactive/fixed: Bilateral - ENT ENT exam: Present: mucous membranes moist, normal external ear exam Additional comments: Increased oral secretions noted above ET tube. - Expanded ENT Exam Mouth exam: Present: moist - Neck Neck exam: Present: normal inspection. Absent: tenderness - Respiratory Respiratory exam: Present: accessory muscle use, CTAB Additional comments: to right. Hx of pneumolobectomy to left. Some accessory muscle use noted with breathing. - Cardiovascular Cardiovascular exam: Present: +S1, +S2. Absent: irregular rhythm Additional comments: NSR to monitor. - GI/Abdominal GI/Abdominal exam: Present: distended, hypoactive bowel sounds, soft. Absent: tenderness - Rectal Rectal exam: Present: deferred - exam: Absent: normal inspection - Extremities Exam Extremities exam: Absent: normal capillary refill, normal inspection, pedal edema - Expanded Upper Extremity Exam Vascular: Present: pulse deficit brachial art, pulse deficit radial art, pulse deficit ulnar art. Absent: normal capillary refill - Expanded Lower Extremity Exam Neuro vascular tendon exam: Present: extremity cold to touch, pallor, pulse deficit - Neurological Exam Neurological exam: Present: altered. Absent: oriented X3, reflexes normal Additional comments: No reaction to painful, verbal, or tactile stimulation. - Expanded Neurological Exam Neurological exam: Present: total aphasia Patient oriented to: Absent: person, place, time Speech: Present: total aphasia Coma Scale Eye Opening: None Coma Scale Motor Response: None Coma Scale Verbal Response: None Coma Scale Total: 3 - Psychiatric Psychiatric exam: Present: flat affect - Skin Skin exam: Present: mottled (Noted to bilateral upper and lower extremities.) Palliative Quality Palliative Quality: Screen for Code Status: Yes, Screen for Goals of Care: Yes, Screen for Pain: Yes, If Pain Regimen Started, Initiate Bowel Regimen: NA, Screen for Nausea/Vomitting: NA (non responsive.) Code Status: 10/21/17 17:03 Resuscitation Status: Active [RES] Routine Comment: Resuscitation Status: Full Code - Labs CBC & Chem 7: 10/28/17 04:00 10/28/17 04:00 Labs: Laboratory Results - last 24 hr 10/27/17 10/27/17 10/27/17 11:32 11:47 15:14 WBC RBC Hgb Hct MCV MCH MCHC RDW Plt Count MPV Immature Gran % Seg Neutrophils % Lymphocytes % Monocytes % Eosinophils % Basophils % Neutrophils # Lymphocytes # Monocytes # Eosinophils # Basophils # Nucleated RBCs/100 WBC Platelet Estimate Anisocytosis Sodium Potassium Chloride Carbon Dioxide BUN Creatinine Est GFR ( Amer) Est GFR (Non-Af Amer) BUN/Creatinine Ratio Glucose POC Glucose 155 H 208 H Calculated Osmolality Lactic Acid 3.2 H Calcium 10/27/17 10/27/17 10/28/17 20:21 23:39 03:40 WBC RBC Hgb Hct MCV MCH MCHC RDW Plt Count MPV Immature Gran % Seg Neutrophils % Lymphocytes % Monocytes % Eosinophils % Basophils % Neutrophils # Lymphocytes # Monocytes # Eosinophils # Basophils # Nucleated RBCs/100 WBC Platelet Estimate Anisocytosis Sodium Potassium Chloride Carbon Dioxide BUN Creatinine Est GFR ( Amer) Est GFR (Non-Af Amer) BUN/Creatinine Ratio Glucose POC Glucose 256 H 213 H 200 H Calculated Osmolality Lactic Acid Calcium 04/13/18 04/13/18 04/13/18 04:00 04:00 07:24 WBC 28.9 H RBC 4.08 L Hgb 13.1 Hct 40.9 MCV 100.2 H MCH 32.1 MCHC 32.0 RDW 15.4 H Plt Count 99 L MPV 11.3 Immature Gran % 1.7 Seg Neutrophils % 94.3 Lymphocytes % 1.1 Monocytes % 2.7 Eosinophils % 0.0 Basophils % 0.2 Neutrophils # 27.3 H Lymphocytes # 0.3 L Monocytes # 0.8 Eosinophils # 0.0 Basophils # 0.1 Nucleated RBCs/100 WBC 0.7 H Platelet Estimate Decreased L Anisocytosis 1+ A Sodium 139 Potassium 5.2 H Chloride 103 Carbon Dioxide 26 BUN 81 H Creatinine 2.68 H Est GFR ( Amer) 30 L Est GFR (Non-Af Amer) 25 L BUN/Creatinine Ratio 30 H Glucose 217 H POC Glucose 245 H Calculated Osmolality 319 H Lactic Acid Calcium 7.8 L - ABG Interpretation ABG results: ABG ABG pH 7.35 pH Units (7.32-7.45) 10/25/17 06:19 ABG pCO2 54 mmHg (35-45) H 10/25/17 06:19 ABG pO2 68 mmHg (85-104) L 10/25/17 06:19 ABG O2 Saturation 92 % (95-98) L 10/25/17 06:19 PT/INR, D-dimer PT 21.3 Seconds (9.4-12.1) H 10/21/17 20:40 Consult Discharge Plan - Plan Referrals: Iris Negrete MD [Primary Care Provider] -
--- NOTE | 2017-10-28 12:41 | Neurology - Consult Note ---
Date of Encounter: 10/28/17 Time of Encounter: 12:40 Assessment and Plan (1) Anoxic brain injury Current Visit: Yes Status: Acute The patient has remained unresponsive without sedation since 10/21 and is not on hypothermal protocol. he lost pupil light reflexes as well as oculocephalic reflex and also gag reflex. DTRs at the upper extremities likely the result of spinal reflex. Again neurological prognosis remains very poor. Results discussed with medical staff. Please call if any questions History of Present Illness Chief complaint: unresponsiveness, anoxic brain injury HPI: Mr. Hawkins is a 56 year old male Past Med Surg Social Fam HX - Past Medical History Medical history: cancer (non-small cell lung cancer with mets to the brain that was removed), COPD, other Psychiatric history: anxiety, depression - Past Surgical History Surgical History: other (Left pneumonectomy) - Social History Smoking Status: Current every day smoker Smokeless Tobacco Status: No Alcohol use: none Drug use: none Medications and Allergies Citalopram [CeleXA] 40 mg PO DAILY 10/21/17 [History] Multivit-Min/FA/Lycopen/Lutein [Men 50 Plus Multivitamin Tab] 1 tab PO DAILY 01/02 [History] Ipratropium/Albuterol Neb [Duoneb] 3 ml IH Q6HR 10/22/17 [History] OxyCODONE Immed Rel [Roxicodone 10 MG] 10 mg PO Q6H PRN 10/22/17 [History] 3 Allergy/AdvReac Type Severity Reaction Status Date / Time No Known Allergies Allergy Verified 12/28/16 16:03 All Systems: The remainder of the systems were reviewed and are negative Physical Examination - Vital Signs Vital Signs: Initial Vital Signs Resp Pulse Ox 28 100 10/21/17 16:55 10/21/17 16:55 - Constitutional General appearance: comfortable (Patient unresponsive. Currently intubated) - Neurologic Sensorimotor examination: other (Unable to assess due to coma) Detailed motor examination: other (No spontaneous movements noted. No response to painful stimuli, Flaccid paralysed) Detailed sensory examination: other (Unable to assess due to coma) Posture: other (None) Reflexes: Biceps: 1+, Triceps: 0, Brachioradialis: 0, Patella: 0, Achilles: 0 Mental Status Examination: coma Cranial nerve examination: PERRL (pupils are fixed 3-4mm in sizes midline positioned. No oculocephalic reflex noted. No corneal reflex noted), corneal reflexes brisk symmetrically (No corneal reflexes noted), no facial asymmetry is present, gag reflex intact (None) Results - Laboratory Findings CBC and BMP: 10/28/17 04:00 10/28/17 04:00 Abnormal lab findings: Abnormal lab results WBC 28.9 K/mcL (4.3-11.1) H 10/28/17 04:00 RBC 4.08 M/mcL (4.19-5.50) L 10/28/17 04:00 MCV 100.2 fL (83.0-100.0) H 10/28/17 04:00 RDW 15.4 % (11.5-14.5) H 10/28/17 04:00 Plt Count 99 K/mcL (140-400) L 10/28/17 04:00 Band Neutrophils % 14.0 % (0-4) H 10/22/17 02:20 Metamyelocytes % 1.0 % (0) H 10/21/17 20:40 Neutrophils # 27.3 K/mcL (1.6-8.9) H 10/28/17 04:00 Lymphocytes # 0.3 K/mcL (0.6-4.6) L 10/28/17 04:00 Nucleated RBCs/100 WBC 0.7 /100 WBC (0) H 10/28/17 04:00 Reactive Lymphocytes Present (Not Present) A 10/26/17 04:00 Smudge Cells Present (Not Present) A 10/27/17 05:20 Toxic Granulation Present (Not Present) A 10/25/17 04:00 Platelet Estimate Decreased (Normal) L 10/28/17 04:00 Anisocytosis 1+ (Not Present) A 10/28/17 04:00 PT 21.3 Seconds (9.4-12.1) H 10/21/17 20:40 ABG pCO2 54 mmHg (35-45) H 10/25/17 06:19 ABG pO2 68 mmHg (85-104) L 10/25/17 06:19 ABG HCO3 30 mEq/L (21-27) H 10/25/17 06:19 ABG Total CO2 31 mEq/L (20-26) H 10/25/17 06:19 ABG O2 Saturation 92 % (95-98) L 10/25/17 06:19 Potassium 5.2 mEq/L (3.5-5.1) H 10/28/17 04:00 BUN 81 mg/dL (6-20) H 10/28/17 04:00 Creatinine 2.68 mg/dL (0.70-1.30) H 10/28/17 04:00 Est GFR ( Amer) 30 (> 60) L 10/28/17 04:00 Est GFR (Non-Af Amer) 25 (> 60) L 10/28/17 04:00 BUN/Creatinine Ratio 30 (6-26) H 10/28/17 04:00 Glucose 217 mg/dL (70-105) H 10/28/17 04:00 POC Glucose 165 mg/dL (70-99) H 10/28/17 12:05 Calculated Osmolality 319 (280-300) H 10/28/17 04:00 Lactic Acid 3.2 mmol/L (0.5-2.2) H 10/27/17 11:47 Calcium 7.8 mg/dL (8.6-10.3) L 10/28/17 04:00 Venous Ioniz Calcium 1.10 mmol/L (1.15-1.35) L 10/24/17 13:09 Direct Bilirubin 0.4 mg/dL (0.0-0.2) H 10/22/17 01:30 AST 458 Units/L (13-39) H 10/22/17 01:30 ALT 298 Units/L (7-52) H 10/22/17 01:30 Alkaline Phosphatase 117 Units/L (34-104) H 10/22/17 01:30 Troponin I 0.23 ng/mL (< 0.04) H* 10/22/17 20:00 Serum Total Protein 5.9 g/dL (6.4-8.9) L 10/22/17 01:30 Albumin 3.1 g/dL (3.5-5.7) L 10/22/17 01:30 HDL Cholesterol 39 mg/dL (40-59) L 10/22/17 01:30 Vancomycin Trough 26 mcg/mL (5-10) H 10/23/17 04:05 Human Metapneumovir PCR DETECTED (Not Detect) A 10/22/17 01:20 Consult Discharge Plan - Plan Referrals: Iris Negrete MD [Primary Care Provider] -
[2017-10-28] MEDS ORDERED: Scopolamine Patch 1.5 MG PATCH.TD72 TD SCH (13:15)
[2017-10-28] MEDS ORDERED: Atropine Sulfate 1% 40 DROP/2 ML BOTTLE SL PRN (13:17)
[2017-10-28] MEDS: Ondansetron 4 MG/2 ML VIAL IVP SCH ×2 (15:00→21:25)
[2017-10-29] MEDS: Ondansetron 4 MG/2 ML VIAL IVP SCH ×4 (01:50→13:31)
[2017-10-29] MEDS: Ipratropium/Albuterol Neb 3 ML IH SCH ×3 (03:27→10:55)
[2017-10-29 04:19] LABS: Mean Corpuscular Hemoglobin 32.2 pg (28.0-33.3); Nucleated Red Blood Cells 0.3 /100 WBC (0)
[2017-10-29 04:21] LABS: Basophils # 0.1 K/mcL (0.0-0.2); Basophils % 0.3 %; Hematocrit 37.3 % (37.5-50.1); Hemoglobin 11.9 g/dL (12.9-16.9); Immature Granulocytes % 3.8 % (0-4); Lymphocytes # 0.3 K/mcL (0.6-4.6); Lymphocytes % 0.7 %; Mean Corpuscular HGB Conc 31.9 g/dL (31.6-35.5); Mean Corpuscular Volume 101.1 fL (83.0-100.0); Mean Platelet Volume 11.9 fL (9.4-12.4); Monocytes # 1.1 K/mcL (0.0-1.3); Monocytes % 2.9 %; Red Blood Count 3.69 M/mcL (4.19-5.50); Red Cell Distribution Width 15.1 % (11.5-14.5); Segmented Neutrophils % 92.3 %
[2017-10-29 04:34] LABS: Platelet Count 88 K/mcL (140-400)
[2017-10-29 04:42] LABS: Calcium 7.4 mg/dL (8.6-10.3)
[2017-10-29] MEDS: Insulin LISPRO 300 UNITS/3 ML VIAL SQ SCH ×4 (04:59→13:31)
[2017-10-29] MEDS: *HR* Heparin 5,000 UNIT/ML VIAL SQ SCH ×2 (05:00→13:31)
[2017-10-29] MEDS: Lacri-Lube 3.5 GM TUBE BOTH EYES SCH ×4 (05:00→13:31)
[2017-10-29] MEDS: Famotidine 20 MG/2 ML VIAL IVP SCH (05:01)
[2017-10-29 05:17] LABS: Anisocytosis 1+ (Not Present); Macrocytosis Present (Not Present); Platelet Estimate Decreased (Normal); Toxic Granulation Present (Not Present)
--- NOTE | 2017-10-29 07:17 | Pulmonology Progress Note ---
<Wayne Presley - Last Filed: 10/29/17 09:19> Date of Encounter: 10/29/17 Time of Encounter: 09:19 Assessment and Plan (1) Cardiac arrest Current Visit: Yes Status: Acute Unclear etiology as to provocation for cardiac arrest. Troponin at peak elevation of 1.2 on presentation likely secondary to prolonged CPR which has trended down daily. CT negative for pulmonary embolism given prior history of malignancy. Echocardiogram 10/21 with ejection fraction of 20% with diastolic dysfunction. Continue aspirin 81 mg daily. Continue telemetry. Plan to withdraw care today at noon. (2) Anoxic brain injury Current Visit: Yes Status: Acute Status post cardiac arrest on 10/21. CT head demonstrates edema consistent with hypoxic injury. CTA 10/24 without evidence of OPTOMETRIST/PRACTICE OWNER occlusion Neurology consulted. EEG 10/24: Impression: This is a severely abnormal EEG due to presence of persistent pattern resembling electrocerebral silence with no reactivity noted. Overall neurologic prognosis is poor. (3) Acute respiratory failure with hypoxia Current Visit: Yes Status: Acute Acute respiratory failure secondary to cardiac arrest. CTA negative for pulmonary embolism however concern for right lower lobe infiltrate likely aspiration given the prolonged downtime. Initially on vancomycin and Zosyn empirically. Remains on Zosyn for 10 day course. Sputum culture demonstrated many wbc's with few gram-positive cocci. Positive for human metapneuovirus. Blood cultures no growth to date. Continue mechanical ventilation for neurologic compromise. Continue CPAP support as tolerated. (4) Dysautonomia Current Visit: Yes Status: Acute Labile hemodynamics as well as fevers up to 104. Likely secondary to anoxic brain injury. Hydralazine ordered as needed with target goal of systolic blood pressure less than 180. Continue Tylenol as well as addition of ibuprofen for antipyretics as well as ice packing for fever control. (5) Hyperglycemia Current Visit: Yes Status: Acute Currently on tube feed regimen. High corrective dose sliding scale insulin (6) SHAYY (acute kidney injury) Current Visit: Yes Status: Acute Worsening renal function to creatinine of 3.77. Potassium of 6. Continue daily BMP. Patient is volume overloaded over 10 L since admission. (7) Lactic acidosis Current Visit: Yes Status: Resolved Initial lactic acid of 7.1 likely secondary to prolonged hypoxic event from arrest. 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 No evidence overnight. Continues to remain hemodynamically labile. Worsening renal function. Plan is terminal extubation today at noon. Objective PUL Vital signs: Last Vital Signs Temp 100.3 F H 10/29/17 04:00 Pulse 87 10/29/17 06:00 Resp 11 10/29/17 07:05 BP 89/59 10/29/17 07:05 Pulse Ox 100 10/29/17 07:05 General appearance: other (Mechanically ventilated) Eyes: nonicteric, other (Fixed) ENT: other (ET tube in place) Effort: other (Mechanically ventilated) Auscultation: bilateral: rhonchi Cardiovascular: regular rate and rhythm Gastrointestinal: soft, non-distended Integumentary: normal Extremities: cyanosis (Mottling of the lower extremities), edema (2+ pitting edema of the lower extremities.), anasarca Musculoskeletal: no deformities other (GCS 3T. Absent primitive reflexes.) Ventilator Settings Ventilator Settings: Ventilator Settings, Last 8 Hours Ventilator Mode VC+ Ventilator Mode VC+ Ventilator Mode VC+ Ventilator Mode VC+ Ventilator Mode VC+ Ventilator Mode VC+ Ventilator Mode VC+ Ventilator Mode VC+ Ventilator Mode VC+ Ventilator Mode VC+ Ventilator Mode VC+ Ventilator Mode VC+ Ventilator Tidal Volume 500 Setting Ventilator Tidal Volume 500 Setting Ventilator Tidal Volume 500 Setting Ventilator Tidal Volume 500 Setting Ventilator Tidal Volume 500 Setting Ventilator Tidal Volume 500 Setting Ventilator Tidal Volume 500 Setting Ventilator Tidal Volume 500 Setting Ventilator Tidal Volume 500 Setting Ventilator Tidal Volume 500 Setting Ventilator Tidal Volume 500 Setting Ventilator Tidal Volume 500 Setting Ventilator Respiratory Rate 12 Setting Ventilator Respiratory Rate 12 Setting Ventilator Respiratory Rate 12 Setting Ventilator Respiratory Rate 12 Setting Ventilator Respiratory Rate 12 Setting Ventilator Respiratory Rate 12 Setting Ventilator Respiratory Rate 12 Setting Ventilator Respiratory Rate 12 Setting Ventilator Respiratory Rate 12 Setting Ventilator Respiratory Rate 12 Setting Ventilator Respiratory Rate 12 Setting Actual Respiratory Rate 11 Actual Respiratory Rate 14 Actual Respiratory Rate 18 Actual Respiratory Rate 15 Actual Respiratory Rate 16 Actual Respiratory Rate 16 Actual Respiratory Rate 18 Actual Respiratory Rate 15 Actual Respiratory Rate 17 Actual Respiratory Rate 13 Actual Respiratory Rate 16 Actual Respiratory Rate 16 Positive End Expiratory 5 Pressure Positive End Expiratory 5 Pressure Positive End Expiratory 5 Pressure Positive End Expiratory 5 Pressure Positive End Expiratory 5 Pressure Positive End Expiratory 5 Pressure Positive End Expiratory 5 Pressure Positive End Expiratory 5 Pressure Positive End Expiratory 5 Pressure Positive End Expiratory 5 Pressure Positive End Expiratory 5 Pressure Positive End Expiratory 5 Pressure Peak Inspiratory Airway 16 Pressure Peak Inspiratory Airway 25 Pressure Peak Inspiratory Airway 15 Pressure Peak Inspiratory Airway 23 Pressure Peak Inspiratory Airway 28 Pressure Peak Inspiratory Airway 25 Pressure Peak Inspiratory Airway 26 Pressure Peak Inspiratory Airway 27 Pressure Peak Inspiratory Airway 27 Pressure Peak Inspiratory Airway 26 Pressure Peak Inspiratory Airway 27 Pressure Results - Laboratory Findings CBC and BMP: 10/29/17 03:40 10/29/17 03:40 ABG ABG pH 7.35 pH Units (7.32-7.45) 10/25/17 06:19 ABG pCO2 54 mmHg (35-45) H 10/25/17 06:19 ABG pO2 68 mmHg (85-104) L 10/25/17 06:19 ABG O2 Saturation 92 % (95-98) L 10/25/17 06:19 PT/INR, D-dimer PT 21.3 Seconds (9.4-12.1) H 10/21/17 20:40 Abnormal lab findings: Abnormal lab results WBC 39.0 K/mcL (4.3-11.1) H* 10/29/17 03:40 RBC 3.69 M/mcL (4.19-5.50) L 10/29/17 03:40 Hgb 11.9 g/dL (12.9-16.9) L 10/29/17 03:40 Hct 37.3 % (37.5-50.1) L 10/29/17 03:40 MCV 101.1 fL (83.0-100.0) H 10/29/17 03:40 RDW 15.1 % (11.5-14.5) H 10/29/17 03:40 Plt Count 88 K/mcL (140-400) L 10/29/17 03:40 Band Neutrophils % 14.0 % (0-4) H 10/22/17 02:20 Metamyelocytes % 1.0 % (0) H 10/21/17 20:40 Neutrophils # 36.0 K/mcL (1.6-8.9) H 10/29/17 03:40 Lymphocytes # 0.3 K/mcL (0.6-4.6) L 10/29/17 03:40 Nucleated RBCs/100 WBC 0.3 /100 WBC (0) H 10/29/17 03:40 Reactive Lymphocytes Present (Not Present) A 10/26/17 04:00 Smudge Cells Present (Not Present) A 10/27/17 05:20 Toxic Granulation Present (Not Present) A 10/29/17 03:40 Platelet Estimate Decreased (Normal) L 10/29/17 03:40 Anisocytosis 1+ (Not Present) A 10/29/17 03:40 Macrocytosis Present (Not Present) A 10/29/17 03:40 PT 21.3 Seconds (9.4-12.1) H 10/21/17 20:40 ABG pCO2 54 mmHg (35-45) H 10/25/17 06:19 ABG pO2 68 mmHg (85-104) L 10/25/17 06:19 ABG HCO3 30 mEq/L (21-27) H 10/25/17 06:19 ABG Total CO2 31 mEq/L (20-26) H 10/25/17 06:19 ABG O2 Saturation 92 % (95-98) L 10/25/17 06:19 Sodium 135 mEq/L (136-145) L 10/29/17 03:40 Potassium 6.0 mEq/L (3.5-5.1) H 10/29/17 03:40 Carbon Dioxide 22 mEq/L (23-29) L 10/29/17 03:40 BUN 107 mg/dL (6-20) H 10/29/17 03:40 Creatinine 3.77 mg/dL (0.70-1.30) H 10/29/17 03:40 Est GFR ( Amer) 20 (> 60) L 10/29/17 03:40 Est GFR (Non-Af Amer) 17 (> 60) L 10/29/17 03:40 BUN/Creatinine Ratio 28 (6-26) H 10/29/17 03:40 Glucose 235 mg/dL (70-105) H 10/29/17 03:40 POC Glucose 243 mg/dL (70-99) H 10/28/17 23:44 Calculated Osmolality 321 (280-300) H 10/29/17 03:40 Lactic Acid 3.2 mmol/L (0.5-2.2) H 10/27/17 11:47 Calcium 7.4 mg/dL (8.6-10.3) L 10/29/17 03:40 Venous Ioniz Calcium 1.10 mmol/L (1.15-1.35) L 10/24/17 13:09 Direct Bilirubin 0.4 mg/dL (0.0-0.2) H 10/22/17 01:30 AST 458 Units/L (13-39) H 10/22/17 01:30 ALT 298 Units/L (7-52) H 10/22/17 01:30 Alkaline Phosphatase 117 Units/L (34-104) H 10/22/17 01:30 Troponin I 0.23 ng/mL (< 0.04) H* 10/22/17 20:00 Serum Total Protein 5.9 g/dL (6.4-8.9) L 10/22/17 01:30 Albumin 3.1 g/dL (3.5-5.7) L 10/22/17 01:30 HDL Cholesterol 39 mg/dL (40-59) L 10/22/17 01:30 Vancomycin Trough 26 mcg/mL (5-10) H 10/23/17 04:05 Human Metapneumovir PCR DETECTED (Not Detect) A 10/22/17 01:20 - Microbiology Findings Microbiology Findings: Microbiology, Last 48 Hours 10/21/17 20:40 Blood Culture - Final Peripheral Venipuncture No growth. 10/21/17 20:40 Blood Culture - Final Peripheral Venipuncture No growth. - Clinical Findings Intake & Output: Intake & Output 10/28/17 10/28/17 10/29/17 15:59 23:59 07:59 Intake Total 500 / 500 528 / 528 1086 / 1086 Output Total 275 / 275 50 / 50 100 / 100 Balance 225 / 225 478 / 478 986 / 986 - VTE Documentation of Mechanical Device: Intermittent pneumatic compression device Consult Discharge Plan - Plan Referrals: Iris Negrete MD [Primary Care Provider] - <Soumya Zuniga - Last Filed: 10/29/17 10:03> Date of Encounter: 10/29/17 Objective PUL Vital signs: Last Vital Signs Temp 98.6 F 10/29/17 08:01 Pulse 87 10/29/17 06:00 Resp 6 10/29/17 09:43 BP 82/48 10/29/17 09:43 Pulse Ox 100 04/14/18 09:43 Ventilator Settings Ventilator Settings: Ventilator Settings, Last 8 Hours Ventilator Mode VC+ Ventilator Mode VC+ Ventilator Mode VC+ Ventilator Mode VC+ Ventilator Mode VC+ Ventilator Mode VC+ Ventilator Mode VC+ Ventilator Mode VC+ Ventilator Tidal Volume 500 Setting Ventilator Tidal Volume 500 Setting Ventilator Tidal Volume 500 Setting Ventilator Tidal Volume 500 Setting Ventilator Tidal Volume 500 Setting Ventilator Tidal Volume 500 Setting Ventilator Tidal Volume 500 Setting Ventilator Tidal Volume 500 Setting Ventilator Respiratory Rate 12 Setting Ventilator Respiratory Rate 12 Setting Ventilator Respiratory Rate 12 Setting Ventilator Respiratory Rate 12 Setting Ventilator Respiratory Rate 12 Setting Ventilator Respiratory Rate 12 Setting Ventilator Respiratory Rate 12 Setting Actual Respiratory Rate 13 Actual Respiratory Rate 11 Actual Respiratory Rate 14 Actual Respiratory Rate 18 Actual Respiratory Rate 15 Actual Respiratory Rate 16 Actual Respiratory Rate 16 Actual Respiratory Rate 18 Positive End Expiratory 5 Pressure Positive End Expiratory 5 Pressure Positive End Expiratory 5 Pressure Positive End Expiratory 5 Pressure Positive End Expiratory 5 Pressure Positive End Expiratory 5 Pressure Positive End Expiratory 5 Pressure Positive End Expiratory 5 Pressure Peak Inspiratory Airway 15 Pressure Peak Inspiratory Airway 16 Pressure Peak Inspiratory Airway 25 Pressure Peak Inspiratory Airway 15 Pressure Peak Inspiratory Airway 23 Pressure Peak Inspiratory Airway 28 Pressure Peak Inspiratory Airway 25 Pressure Peak Inspiratory Airway 26 Pressure Results - Laboratory Findings CBC and BMP: 10/29/17 03:40 10/29/17 03:40 ABG ABG pH 7.35 pH Units (7.32-7.45) 10/25/17 06:19 ABG pCO2 54 mmHg (35-45) H 10/25/17 06:19 ABG pO2 68 mmHg (85-104) L 10/25/17 06:19 ABG O2 Saturation 92 % (95-98) L 10/25/17 06:19 PT/INR, D-dimer PT 21.3 Seconds (9.4-12.1) H 10/21/17 20:40 Abnormal lab findings: Abnormal lab results WBC 39.0 K/mcL (4.3-11.1) H* 10/29/17 03:40 RBC 3.69 M/mcL (4.19-5.50) L 10/29/17 03:40 Hgb 11.9 g/dL (12.9-16.9) L 10/29/17 03:40 Hct 37.3 % (37.5-50.1) L 10/29/17 03:40 MCV 101.1 fL (83.0-100.0) H 10/29/17 03:40 RDW 15.1 % (11.5-14.5) H 10/29/17 03:40 Plt Count 88 K/mcL (140-400) L 10/29/17 03:40 Band Neutrophils % 14.0 % (0-4) H 10/22/17 02:20 Metamyelocytes % 1.0 % (0) H 10/21/17 20:40 Neutrophils # 36.0 K/mcL (1.6-8.9) H 10/29/17 03:40 Lymphocytes # 0.3 K/mcL (0.6-4.6) L 10/29/17 03:40 Nucleated RBCs/100 WBC 0.3 /100 WBC (0) H 10/29/17 03:40 Reactive Lymphocytes Present (Not Present) A 10/26/17 04:00 Smudge Cells Present (Not Present) A 10/27/17 05:20 Toxic Granulation Present (Not Present) A 10/29/17 03:40 Platelet Estimate Decreased (Normal) L 10/29/17 03:40 Anisocytosis 1+ (Not Present) A 10/29/17 03:40 Macrocytosis Present (Not Present) A 10/29/17 03:40 PT 21.3 Seconds (9.4-12.1) H 10/21/17 20:40 ABG pCO2 54 mmHg (35-45) H 10/25/17 06:19 ABG pO2 68 mmHg (85-104) L 10/25/17 06:19 ABG HCO3 30 mEq/L (21-27) H 10/25/17 06:19 ABG Total CO2 31 mEq/L (20-26) H 10/25/17 06:19 ABG O2 Saturation 92 % (95-98) L 10/25/17 06:19 Sodium 135 mEq/L (136-145) L 10/29/17 03:40 Potassium 6.0 mEq/L (3.5-5.1) H 10/29/17 03:40 Carbon Dioxide 22 mEq/L (23-29) L 10/29/17 03:40 BUN 107 mg/dL (6-20) H 10/29/17 03:40 Creatinine 3.77 mg/dL (0.70-1.30) H 10/29/17 03:40 Est GFR ( Amer) 20 (> 60) L 10/29/17 03:40 Est GFR (Non-Af Amer) 17 (> 60) L 10/29/17 03:40 BUN/Creatinine Ratio 28 (6-26) H 10/29/17 03:40 Glucose 235 mg/dL (70-105) H 10/29/17 03:40 POC Glucose 176 mg/dL (70-99) H 10/29/17 07:48 Calculated Osmolality 321 (280-300) H 10/29/17 03:40 Lactic Acid 3.2 mmol/L (0.5-2.2) H 10/27/17 11:47 Calcium 7.4 mg/dL (8.6-10.3) L 10/29/17 03:40 Venous Ioniz Calcium 1.10 mmol/L (1.15-1.35) L 10/24/17 13:09 Direct Bilirubin 0.4 mg/dL (0.0-0.2) H 10/22/17 01:30 AST 458 Units/L (13-39) H 10/22/17 01:30 ALT 298 Units/L (7-52) H 10/22/17 01:30 Alkaline Phosphatase 117 Units/L (34-104) H 10/22/17 01:30 Troponin I 0.23 ng/mL (< 0.04) H* 10/22/17 20:00 Serum Total Protein 5.9 g/dL (6.4-8.9) L 10/22/17 01:30 Albumin 3.1 g/dL (3.5-5.7) L 10/22/17 01:30 HDL Cholesterol 39 mg/dL (40-59) L 10/22/17 01:30 Vancomycin Trough 26 mcg/mL (5-10) H 10/23/17 04:05 Human Metapneumovir PCR DETECTED (Not Detect) A 10/22/17 01:20 - Microbiology Findings Microbiology Findings: Microbiology, Last 48 Hours 10/21/17 20:40 Blood Culture - Final Peripheral Venipuncture No growth. 10/21/17 20:40 Blood Culture - Final Peripheral Venipuncture No growth. - Clinical Findings Intake & Output: Intake & Output 10/28/17 10/29/17 10/29/17 23:59 07:59 15:59 Intake Total 528 / 528 1086 / 1086 Output Total 50 / 50 100 / 100 Balance 478 / 478 986 / 986 - - Attending Attestation I examined this patient and my medical decision-making was reviewed with the Resident Physician. I agree with the documented findings, disposition and treatment plan as described except to the extent set forth below. Patient seen and examined. Labs, radiology, chart personally reviewed. Agree with resident's history and physical, assessment, plan with following comments: DATACAP DEVELOPER: Patient does not follows commands, poor prognosis Pulmonary: Acceptable oxygenation and ventilation. Patient is tolerating spontaneous breathing trial. Awaiting for the family final decision regarding compassionate extubation. Appreciate palliative care assistance. Cardiovascular: stable GI: Nutrition per dietary and GI prophylaxis per routine Heme: DVT prophylaxis per routine Renal; urine out put and renal funtion reviewed. Acute kidney injury Endorcine: blood glucose is monitored Lines: all lines checked and no evidence of infections Skin: skin care to prevent pressure ulcers per nursing routine care Prognosis is poor
[2017-10-29] MEDS ORDERED: *HR* FentaNYL (PF) 100 MCG/2 ML VIAL IVP PRN (08:54)
[2017-10-29] MEDS ORDERED: *HR* LORazepam 2 MG/ML VIAL IVP PRN (08:56)
--- NOTE | 2017-10-29 08:57 | Palliative Progress Note ---
Date of Encounter: 10/29/17 Time of Encounter: 08:50 - Assessment and plan (1) Restlessness and agitation Current Visit: Yes Status: Acute Assessment and plan: Patient ordered Haldol and Lorazepam if needed following extubation. MOnitor and adjust as needed for comfort. (2) Dyspnea Current Visit: Yes Status: Acute Assessment and plan: Fentanyl 50 mg IVP, as well as Roxanol SL ordered for dyspnea following extubation for comfort. Monitor and adjust as needed. (3) Acute respiratory failure requiring reintubation Current Visit: Yes Status: Acute (4) Anoxic brain injury Current Visit: Yes Status: Acute (5) Goals of care, counseling/discussion Current Visit: Yes Status: Acute Assessment and plan: Plan currently for compassionate extubation today around 1200. If stable, can be transferred to palliative bed under hospitalist. (6) Non-small cell lung cancer Current Visit: No Status: Acute Qualifiers: Laterality: left Qualified Code(s): C34.92 - Malignant neoplasm of unspecified part of left bronchus or lung - Time Spent With Patient Total time spent is greater than 50% in coordination of care (as documented) at patient's floor/unit and/or counseling patient: 25 - 35 minutes - Subjective Interval history: Patient remains unresponsive on ventilator, pupils fixed. No family currently at bedside. Vital signs stable. - Constitutional Vitals: Abnormal lab results WBC 39.0 K/mcL (4.3-11.1) H* 10/29/17 03:40 RBC 3.69 M/mcL (4.19-5.50) L 10/29/17 03:40 Hgb 11.9 g/dL (12.9-16.9) L 10/29/17 03:40 Hct 37.3 % (37.5-50.1) L 10/29/17 03:40 MCV 101.1 fL (83.0-100.0) H 10/29/17 03:40 RDW 15.1 % (11.5-14.5) H 10/29/17 03:40 Plt Count 88 K/mcL (140-400) L 10/29/17 03:40 Band Neutrophils % 14.0 % (0-4) H 10/22/17 02:20 Metamyelocytes % 1.0 % (0) H 10/21/17 20:40 Neutrophils # 36.0 K/mcL (1.6-8.9) H 10/29/17 03:40 Lymphocytes # 0.3 K/mcL (0.6-4.6) L 10/29/17 03:40 Nucleated RBCs/100 WBC 0.3 /100 WBC (0) H 10/29/17 03:40 Reactive Lymphocytes Present (Not Present) A 10/26/17 04:00 Smudge Cells Present (Not Present) A 10/27/17 05:20 Toxic Granulation Present (Not Present) A 10/29/17 03:40 Platelet Estimate Decreased (Normal) L 10/29/17 03:40 Anisocytosis 1+ (Not Present) A 10/29/17 03:40 Macrocytosis Present (Not Present) A 10/29/17 03:40 PT 21.3 Seconds (9.4-12.1) H 10/21/17 20:40 ABG pCO2 54 mmHg (35-45) H 10/25/17 06:19 ABG pO2 68 mmHg (85-104) L 10/25/17 06:19 ABG HCO3 30 mEq/L (21-27) H 10/25/17 06:19 ABG Total CO2 31 mEq/L (20-26) H 10/25/17 06:19 ABG O2 Saturation 92 % (95-98) L 10/25/17 06:19 Sodium 135 mEq/L (136-145) L 10/29/17 03:40 Potassium 6.0 mEq/L (3.5-5.1) H 10/29/17 03:40 Carbon Dioxide 22 mEq/L (23-29) L 10/29/17 03:40 BUN 107 mg/dL (6-20) H 10/29/17 03:40 Creatinine 3.77 mg/dL (0.70-1.30) H 10/29/17 03:40 Est GFR ( Amer) 20 (> 60) L 10/29/17 03:40 Est GFR (Non-Af Amer) 17 (> 60) L 10/29/17 03:40 BUN/Creatinine Ratio 28 (6-26) H 10/29/17 03:40 Glucose 235 mg/dL (70-105) H 10/29/17 03:40 POC Glucose 176 mg/dL (70-99) H 10/29/17 07:48 Calculated Osmolality 321 (280-300) H 10/29/17 03:40 Lactic Acid 3.2 mmol/L (0.5-2.2) H 10/27/17 11:47 Calcium 7.4 mg/dL (8.6-10.3) L 10/29/17 03:40 Venous Ioniz Calcium 1.10 mmol/L (1.15-1.35) L 10/24/17 13:09 Direct Bilirubin 0.4 mg/dL (0.0-0.2) H 10/22/17 01:30 AST 458 Units/L (13-39) H 10/22/17 01:30 ALT 298 Units/L (7-52) H 10/22/17 01:30 Alkaline Phosphatase 117 Units/L (34-104) H 10/22/17 01:30 Troponin I 0.23 ng/mL (< 0.04) H* 10/22/17 20:00 Serum Total Protein 5.9 g/dL (6.4-8.9) L 10/22/17 01:30 Albumin 3.1 g/dL (3.5-5.7) L 10/22/17 01:30 HDL Cholesterol 39 mg/dL (40-59) L 10/22/17 01:30 Vancomycin Trough 26 mcg/mL (5-10) H 10/23/17 04:05 Human Metapneumovir PCR DETECTED (Not Detect) A 10/22/17 01:20 General appearance: Present: no acute distress - Respiratory Respiratory exam: Present: decreased breath sounds, CTAB Additional comments: Breath sounds coarse on right, left absent r/t previous pneumonectomy - Cardiovascular Cardiovascular exam: Present: +S1, +S2 - GI/Abdominal GI/Abdominal exam: Present: diminished bowel sounds, soft - Additional comments: Small amount yellow urine in catheter tubing - Extremities Exam Additional comments: Extremities and genitalia mottled. - Neurological Exam Additional comments: Remains unresponsive - Expanded Neurological Exam Coma Scale Eye Opening: None Coma Scale Motor Response: None Coma Scale Verbal Response: None Coma Scale Total: 3 - Skin Additional comments: Bilateral lower extremities and hands dusky, mottled, and cold to touch Palliative Quality Palliative Quality: Screen for Code Status: Yes, Screen for Goals of Care: Yes, Screen for Pain: Yes, If Pain Regimen Started, Initiate Bowel Regimen: NA, Screen for Nausea/Vomitting: NA (non responsive.) Code Status: 10/21/17 17:03 Resuscitation Status: Active [RES] Routine Comment: Resuscitation Status: Full Code 10/28/17 11:59 DNR [Resuscitation Status: Active] [RES] Routine Comment: Keep Ventilator until terminal extubation. Resuscitation Status: DNR-Comfort Care - Labs CBC & Chem 7: 10/29/17 03:40 10/29/17 03:40 Labs: Laboratory Results - last 24 hr 10/28/17 10/28/17 10/28/17 12:05 15:39 20:07 WBC RBC Hgb Hct MCV MCH MCHC RDW Plt Count MPV Immature Gran % Seg Neutrophils % Lymphocytes % Monocytes % Eosinophils % Basophils % Neutrophils # Lymphocytes # Monocytes # Eosinophils # Basophils # Nucleated RBCs/100 WBC Toxic Granulation Platelet Estimate Anisocytosis Macrocytosis Sodium Potassium Chloride Carbon Dioxide BUN Creatinine Est GFR ( Amer) Est GFR (Non-Af Amer) BUN/Creatinine Ratio Glucose POC Glucose 165 H 133 H 197 H Calculated Osmolality Calcium 10/28/17 10/29/17 10/29/17 23:44 03:40 03:40 WBC 39.0 H* RBC 3.69 L Hgb 11.9 L Hct 37.3 L MCV 101.1 H MCH 32.2 MCHC 31.9 RDW 15.1 H Plt Count 88 L MPV 11.9 Immature Gran % 3.8 Seg Neutrophils % 92.3 Lymphocytes % 0.7 Monocytes % 2.9 Eosinophils % 0.0 Basophils % 0.3 Neutrophils # 36.0 H Lymphocytes # 0.3 L Monocytes # 1.1 Eosinophils # 0.0 Basophils # 0.1 Nucleated RBCs/100 WBC 0.3 H Toxic Granulation Present A Platelet Estimate Decreased L Anisocytosis 1+ A Macrocytosis Present A Sodium 135 L Potassium 6.0 H Chloride 100 Carbon Dioxide 22 L BUN 107 H Creatinine 3.77 H Est GFR ( Amer) 20 L Est GFR (Non-Af Amer) 17 L BUN/Creatinine Ratio 28 H Glucose 235 H POC Glucose 243 H Calculated Osmolality 321 H Calcium 7.4 L 10/29/17 07:48 WBC RBC Hgb Hct MCV MCH MCHC RDW Plt Count MPV Immature Gran % Seg Neutrophils % Lymphocytes % Monocytes % Eosinophils % Basophils % Neutrophils # Lymphocytes # Monocytes # Eosinophils # Basophils # Nucleated RBCs/100 WBC Toxic Granulation Platelet Estimate Anisocytosis Macrocytosis Sodium Potassium Chloride Carbon Dioxide BUN Creatinine Est GFR ( Amer) Est GFR (Non-Af Amer) BUN/Creatinine Ratio Glucose POC Glucose 176 H Calculated Osmolality Calcium - ABG Interpretation ABG results: ABG ABG pH 7.35 pH Units (7.32-7.45) 10/25/17 06:19 ABG pCO2 54 mmHg (35-45) H 10/25/17 06:19 ABG pO2 68 mmHg (85-104) L 10/25/17 06:19 ABG O2 Saturation 92 % (95-98) L 10/25/17 06:19 PT/INR, D-dimer PT 21.3 Seconds (9.4-12.1) H 10/21/17 20:40 Consult Discharge Plan - Plan Referrals: Iris Negrete MD [Primary Care Provider] -
[2017-10-29] MEDS: Sennosides/Docusate Sodium TABLET PO SCH (10:08)
[2017-10-29] MEDS: Piperacillin/Tazobactam 3.375 GM in 0.9 % Sodium Chloride Mini Bag 100 ML IVPB SCH ×2 (10:08)
[2017-10-29] MEDS: Chlorhexidine Rinse 15 ML MOUTHWASH MM SCH (10:08)
[2017-10-29] MEDS: Aspirin 81 MG TAB.CHEW PO SCH (10:08)
[2017-10-29] MEDS ORDERED: *HR* LORazepam Oral Conc 2 MG/ML SL PRN (12:00)
[2017-10-29] MEDS ORDERED: *HR* LORazepam 2 MG/ML VIAL IVP ONE (12:00)
[2017-10-29] MEDS ORDERED: Haloperidol Lactate 5 MG/ML VIAL IVP ONE (12:00)
[2017-10-29] MEDS ORDERED: MORPHINE SUL Oral CONC 10 MG/0.5 ML ORAL.SYG SL PRN ×2 (12:00)
[2017-10-29] MEDS ORDERED: *HR* FentaNYL (PF) 100 MCG/2 ML VIAL IVP ONE (12:00)
[2017-10-29 13:21] VITALS: BP 76/49
--- NOTE | 2017-10-29 14:35 | Death Note ---
<Wayne Presley - Last Filed: 10/29/17 14:35> Discharge Sum: Summary - Date and Time Date of admission: 10/21/17 16:34 Date of : 10/29/17 Time of : 14:30 - Summary Details: Erickson was a 56-year-old male with a prior history of lung cancer with metastasis to the brain status post left pneumonectomy who initially presented to [place] emergency department in cardiac arrest. He had previously felt unwell for several days but had refused to come to the hospital at that time. The morning of presentation he was found down by his family noted to be apneic. CPR was initiated at that time. He initially was noted to have a lactic acidosis greater than 10 with an elevated troponin and BNP. 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 During his hospital course the patient remained intubated. He was found to be positive for human metapneumovirus. His was hospitalized concurrently for respiratory failure also with metapneumovirus. His neurologic status remained poor with absent primitive reflexes. Neurology was consulted with a workup including a CTA to evaluate for posterior circulation etiology which was unremarkable. He also had an EEG performed which was consistent with a severe diffuse cerebral dysfunction felt to be secondary to his anoxic brain injury. Throughout his hospitalization his neurologic status never improved. Patient developed an acute kidney injury despite IV fluid resuscitation and volume overload. On 10/29/17 the patient was terminally extubated with family present with time of 14:30 on 10/29/17. - Additional Data Confirmation of as documented by pronouncing clinician: no pulse, no respirations, no heart sounds Family: at bedside Attending physician: Soumya Zuniga MD Was code activated?: No Hospice patient?: No Discharge Sum: Diag - PCOD Probable Cause of : Cardiac arrest Discharge Sum: Prov - Provider Primary care physician: Iris Negrete MD Admitting clinician: Joseph Krfat Attending physician on admission: Joseph Kraft Consults: 10/22/17 07:25 Consult to Pastoral Services [CONS] Routine Comment: 10/22/17 09:48 Consult to Neurology [CONS] Routine Consulting Provider: [facility] Reason for Consult: anoxic brain injury Time Notified: 09:49 Call Completed: Yes 10/24/17 09:41 Consult to Palliative Care [CONS] Routine Comment: Consulting Provider: [facility] [place] Reason for Consult: end of life planning Call Completed: No 10/24/17 10:46 Consult to Nutrition [CONS] Routine Comment: Consulting Provider: NUTRITION Reason for Dietary Consult: Tube Feed Start & Manage 10/24/17 16:10 Consult to Interpret Exam [CONS] Routine Consulting Provider: Sonia Pedro Consult to Interpret Exam: Interpret EEG Pronouncing clinician: Wayne Presley <Soumya Zuniga - Last Filed: 10/29/17 20:09> Discharge Sum: Summary - Date and Time Date of admission: 10/21/17 16:34 - Additional Data Attending physician: Joseph Kraft MD Discharge Sum: Prov - Provider Primary care physician: Iris Negrete MD Consults: 10/22/17 07:25 Consult to Pastoral Services [CONS] Routine Comment: 10/22/17 09:48 Consult to Neurology [CONS] Routine Consulting Provider: [facility] Reason for Consult: anoxic brain injury Time Notified: 09:49 Call Completed: Yes 10/24/17 09:41 Consult to Palliative Care [CONS] Routine Comment: Consulting Provider: [facility] [place] Reason for Consult: end of life planning Call Completed: No 10/24/17 10:46 Consult to Nutrition [CONS] Routine Comment: Consulting Provider: NUTRITION Reason for Dietary Consult: Tube Feed Start & Manage 10/24/17 16:10 Consult to Interpret Exam [CONS] Routine Consulting Provider: Sonia Pedro Consult to Interpret Exam: Interpret EEG - Attending Attestation I examined this patient and my medical decision-making was reviewed with the Resident Physician. I agree with the documented findings, disposition and treatment plan as described except to the extent set forth below. Patient was extubated after multiple family meetings and he had evidence of anoxic brain injury with poor prognosis. Patient subsequently.
== END 2017-10-29 16:49 | disposition expired | DRG 207 ==
LOC: ICNU 16:34
PROVIDERS: ADMIT Internal Medicine Hospice and Palliative Medicine; ATTEND Internal Medicine Hospice and Palliative Medicine